=== PATIENT | female | born 1975 | race Caucasian/White ===

== ENCOUNTER → 2019-12-14 07:07 | Outpatient (BNVA) | payer OTHER, SELFPAY | PROVIDERS: PCP Hospitalist; Referring Provider Hospitalist; Visit Provider Surgery | DX: Z76.89 Persons encountering health services in other specified circumstances (principal) ==

== ENCOUNTER → 2020-01-18 07:31 | Outpatient (BNVA) | payer OTHER, SELFPAY | PROVIDERS: PCP Hospitalist; Visit Provider Surgery | DX: Z76.89 Persons encountering health services in other specified circumstances (principal) ==

== ENCOUNTER → 2020-03-21 08:11 | Outpatient (BNVA) | payer OTHER, SELFPAY | PROVIDERS: PCP Hospitalist; Visit Provider Surgery ==

== ENCOUNTER 2020-04-02 09:05 | Outpatient (REF) | payer OTHER, SELFPAY ==
--- NOTE | ~2020-04-02 | MM_ITS ---
EXAMINATION: MM SCREENING DIGITAL BREAST TOMOSYNTHESIS, BILATERAL CLINICAL INFORMATION: Screening. Asymptomatic. The lifetime risk of breast cancer based on the Tyrer-Cuzick Model is 10%. COMPARISON: Mammography: 03/28/2019, 01/22/2018 TECHNIQUE: Digital breast tomosynthesis is performed in both the craniocaudal and mediolateral oblique views along with computer-aided detection (CAD). Synthesized 2D images are generated from the tomosynthesis. FINDINGS: There are scattered areas of fibroglandular density (ACR BI-RADS breast composition Category b). There are no significant masses, abnormal calcifications, or other abnormalities. Parenchymal pattern is similar to prior exams. The axilla and skin contours are unremarkable. MM/MM tomosynthesis screening BI IMPRESSION: No mammographic evidence of malignancy. ASSESSMENT: BI-RADS 1: Negative RECOMMENDATION: Routine annual mammography screening. This patient's information was entered into a reminder system with a target due date for their next mammogram.
== END 2020-04-02 09:06 | disposition home or self-care (01) ==
LOC: HO.MAMMO 09:05
PROVIDERS: PCP Hospitalist; Visit Provider Hospitalist
DX: Z12.31 Encounter for screening mammogram for malignant neoplasm of breast (principal)
CPT/HCPCS: 77063; 77067

== ENCOUNTER 2020-04-21 08:47 | Outpatient (REF) | payer OTHER, SELFPAY ==
[2020-04-21 09:51] LABS: MANUAL DIFF FLAG NO
[2020-04-21 09:56] LABS: Basophils Percent Auto 0.3 % (0-2); Eosinophils Absolute Auto 0.6 X10*3/uL (0.0-0.4); Eosinophils Percent Auto 7.7 % (0-4); Hematocrit 39.1 % (37-47); Hemoglobin 13.5 g/dl (12.0-16.0); Imm Gran Abs Auto 0.01 X10*3/uL (0.00-0.03); Imm Gran Pct Auto 0.1 % (0.0-0.4); Lymphocytes Absolute Auto 2.3 X10*3/uL (1.2-4.9); Mean Corpuscular HGB Conc 34.5 g/dl (31.0-35.0); Mean Corpuscular Volume 89.9 fL (80-98); Mean Platelet Volume 10.1 fL (9.4-12.3); Monocytes Absolute Auto 0.6 X10*3/uL (0.1-1.2); Monocytes Percent Auto 8.3 % (2-11); Neutrophils Percent Auto 53.6 % (45-73); Platelet Count 327 X10*3/uL (160-400); Red Blood Count 4.35 X10*6/uL (4.20-5.50); Red Cell Distribution Width 12.3 % (11.0-16.0); White Blood Count 7.5 X10*3/uL (4.8-10.8)
[2020-04-21 10:28] LABS: Alanine Aminotransferase 20 U/L (0-31); Albumin Level 4.1 g/dL (3.5-5.0); Alkaline Phosphatase 86 U/L (39-117); Anion Gap 11 (12-20); Aspartate Amino Transferase 26 U/L (5-31); Bilirubin Total 0.6 mg/dL (0.0-1.0); Blood Urea Nitrogen 12 mg/dL (9-16); C Reactive Protein 0.31 mg/dL (< or = 0.50); Calcium 9.4 mg/dL (8.4-10.2); Carbon Dioxide 31 mmol/L (22-29); Chloride 102 mmol/L (96-108); Cholesterol 172 mg/dL; Estimated Glomerular Filt Rate > 60; Glucose Random 88 mg/dL (60-115); HDL Cholesterol 54 mg/dL; LDL Cholesterol Calculated 103 mg/dl; Potassium 4.5 mmol/L (3.3-5.1); Sodium 139 mmol/L (135-145); Total Protein 6.9 g/dL (6.5-8.0); Triglycerides 75 mg/dL
[2020-04-21 10:53] LABS: Ferritin 114 ng/mL (10-250); TSH reflex Free T4 1.35 uIU/mL (0.32-4.0); Vitamin D 25-OH Total 47.6 ng/mL (>30)
[2020-04-21 12:18] LABS: Folate > 20.0 ng/mL (> or = 4.0); Vitamin B12 1377 pg/mL (200-900)
[2020-04-21 13:12] LABS: Estimated Average Glucose 94 mg/dL; Hemoglobin A1c % 4.9 %
[2020-04-22 05:32] LABS: Insulin Level Total 4.3 uIU/mL
[2020-04-23 16:32] LABS: Zinc 76 mcg/dL (60-130)
[2020-04-25 12:11] LABS: Vitamin B1 15 nmol/L (8-30)
[2020-04-25 13:47] LABS: Calcium (PTHI) 9.3 mg/dL (8.6-10.2); PTHI 30 pg/mL (14-64)
[2020-04-26 17:06] LABS: Vitamin A 43 mcg/dL (38-98)
== END 2020-04-21 08:48 | disposition home or self-care (01) ==
LOC: HO.LAB 08:47
PROVIDERS: PCP Hospitalist; Visit Provider Surgery
DX: E66.3 Overweight (principal); K90.9 Intestinal malabsorption, unspecified
CPT/HCPCS: 36415; 80053; 80061; 82306; 82607; 82728; 82746; 83036; 83525; 83970; 84425; 84443; 84590; 84630; 85025; 86140

== ENCOUNTER 2020-08-09 15:25 | Outpatient (REF) | payer OTHER, SELFPAY ==
--- NOTE | ~2020-08-09 | US_ITS ---
EXAMINATION: US SOFT TISSUE OF THE NECK CLINICAL INFORMATION: Generalized enlarged lymph nodes. COMPARISON: None TECHNIQUE: Linear transducer grayscale and color Doppler examination of the right neck level IB.. Imaging of the contralateral left side of the neck comparison was also performed. FINDINGS: Palpable abnormality corresponds to the right submandibular gland. This is normal in size and measures 3.1 x 1.9 x 1.1 cm. No focal lesion in the right submandibular gland is seen. This does appear slightly more vascular than the comparison left submandibular gland. There is a small adjacent right cervical lymph node. This is normal in size and demonstrates normal ultrasound morphology and flow. This measures 1.7 x 0.5 x 1.4 cm. The left submandibular gland measures 3.1 x 0.7 x 2.7 cm and is normal-appearing. US/US soft tiss head and/or neck IMPRESSION: Palpable abnormality in the right neck corresponds to the right submandibular gland. This has slight increased vascularity compared to the left submandibular gland but otherwise appears unremarkable. There is a small adjacent normal-appearing right cervical lymph node.
== END 2020-08-09 15:26 | disposition home or self-care (01) ==
LOC: HO.HMGCX 15:25
PROVIDERS: PCP Hospitalist; Visit Provider Internal Medicine
DX: R59.1 Generalized enlarged lymph nodes (principal); F41.1 Generalized anxiety disorder
CPT/HCPCS: 76536

== ENCOUNTER 2021-06-09 08:29 | Outpatient (REF) | payer OTHER, SELFPAY ==
--- NOTE | ~2021-06-09 | MM_ITS ---
EXAMINATION: MM SCREENING DIGITAL BREAST TOMOSYNTHESIS, BILATERAL CLINICAL INFORMATION: Screening. Asymptomatic. The lifetime risk of breast cancer based on the Tyrer-Cuzick Model is 11%. COMPARISON: Mammography: 01/30/2021, 03/28/2019, 01/22/2018 TECHNIQUE: Digital breast tomosynthesis is performed in both the craniocaudal and mediolateral oblique views along with computer-aided detection (CAD). Synthesized 2D images are generated from the tomosynthesis. FINDINGS: There are scattered areas of fibroglandular density (ACR BI-RADS breast composition Category b). There are no significant masses, abnormal calcifications, or other abnormalities. The axilla and skin contours are unremarkable. No significant MM/MM tomosynthesis screening BI IMPRESSION: No mammographic evidence of malignancy. ASSESSMENT: BI-RADS 1: Negative RECOMMENDATION: Routine annual mammography screening. This patient's information was entered into a reminder system with a target due date for their next mammogram.
== END 2021-06-09 08:30 | disposition home or self-care (01) ==
LOC: HO.MAMMO 08:29
PROVIDERS: Visit Provider Hospitalist
DX: Z12.31 Encounter for screening mammogram for malignant neoplasm of breast (principal)
CPT/HCPCS: 77063; 77067

== ENCOUNTER 2021-10-20 11:18 | Outpatient (REF) | payer OTHER, SELFPAY ==
[2021-10-20 13:59] LABS: Hemoglobin 12.8 g/dl (12.0-16.0); Mean Corpuscular HGB Conc 36.6 g/dl (31.0-35.0); Mean Corpuscular Hemoglobin 33.2 pg (27.0-33.0); Mean Corpuscular Volume 90.7 fL (80.0-98.0); Mean Platelet Volume 10.7 fL (9.4-12.3); Platelet Count 368 X10*3/uL (160-400); Red Blood Count 3.86 X10*6/uL (4.20-5.50); Red Cell Distribution Width 13.2 % (11.0-16.0)
[2021-10-20 14:15] LABS: Anion Gap 17 (12-20); Blood Urea Nitrogen 10 mg/dL (9-16); Calcium 8.6 mg/dL (8.4-10.2); Carbon Dioxide 25 mmol/L (22-29); Chloride 104 mmol/L (96-108); Estimated Glomerular Filt Rate > 60; Glucose Random 85 mg/dL (60-115); Potassium 3.9 mmol/L (3.3-5.1); Sodium 142 mmol/L (135-145)
[2021-10-20 14:39] LABS: Thyroid Stimulating Hormone 0.52 uIU/mL (0.32-4.0)
[2021-10-20 14:43] LABS: Erythrocyte Sedimentation Rate 11 MM/HR (0-20)
== END 2021-10-20 11:19 | disposition home or self-care (01) ==
LOC: HO.HMGCLDS 11:18
PROVIDERS: PCP Hospitalist; Visit Provider Internal Medicine
DX: R11.0 Nausea (principal)
CPT/HCPCS: 36415; 80048; 84443; 85027; 85652

== ENCOUNTER 2022-06-15 08:05 | Outpatient (REF) | payer OTHER, SELFPAY ==
--- NOTE | ~2022-06-15 | MM_ITS ---
EXAMINATION: MM SCREENING DIGITAL BREAST TOMOSYNTHESIS, BILATERAL CLINICAL INFORMATION: Screening. Asymptomatic. The lifetime risk of breast cancer based on the Tyrer-Cuzick Model is 6%. COMPARISON: Mammography: 06/09/2021, 04/02/2020, 03/28/2019, 01/22/2018 TECHNIQUE: Digital breast tomosynthesis is performed in both the craniocaudal and mediolateral oblique views along with computer-aided detection (CAD). Synthesized 2D images are generated from the tomosynthesis. FINDINGS: There are scattered areas of fibroglandular density (ACR BI-RADS breast composition Category b). There are no significant masses, abnormal calcifications, or other abnormalities. Parenchymal pattern is similar to prior studies. There is no developing density or architectural abnormality. The axilla and skin contours are unremarkable. No significant changes. MM/MM tomosynthesis screening BI IMPRESSION: No mammographic evidence of malignancy. ASSESSMENT: BI-RADS 1: Negative RECOMMENDATION: Routine annual mammography screening. This patient's information was entered into a reminder system with a target due date for their next mammogram.
== END 2022-06-15 08:06 | disposition home or self-care (01) ==
LOC: HO.MAMMO 08:05
PROVIDERS: PCP Hospitalist; Visit Provider Hospitalist
DX: Z12.31 Encounter for screening mammogram for malignant neoplasm of breast (principal)
CPT/HCPCS: 77063; 77067

== ENCOUNTER 2022-10-26 11:35 | Outpatient (AMB) | payer OTHER, SELFPAY ==
[2022-10-26 11:49] VITALS: BP 100/60; PULSE 78; RESP 16; TEMP 37.1; O2SAT 97; BMI 31.8
--- NOTE | 2022-10-26 11:49 | A.OFFPC_ITS ---
Vital Signs 10/26/22 11:49 Height 5 ft 5 in Weight 191 lb 4 oz BMI 31.8 BP 100/60 Blood Pressure Location Lt brachial Position Sitting Respiration 16 Pulse 78 Pulse Source Pulse Oximeter Temp 98.7 F Temp Source Oral Pulse Oximetry (%) 97 Oxygen Delivery Method Room Air Intake Visit Reasons: Discuss Anxiety Medication Intake Note: Patient reports she would like to discuss anxiety medication as she feels it does not work. 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 Accompanied by: Self / Same As Patient Allergies latex [Latex] Allergy (Severe, Verified 10/26/22 12:05) SWELLING,ITCHING codeine [CODEINE] Allergy (Intermediate, Verified 10/26/22 12:05) N/V levofloxacin [From Levaquin] Allergy (Mild, Verified 10/26/22 12:05) N/V Medication List - Last Reconciled 10/26/22 by Ayanna Johns CNP cetirizine 10 mg PO DAILY clonidine HCl 0.1 mg PO TID PRN fluticasone propionate 50 mcg/actuation (Flonase Allergy Relief) 1 spray intranasal Q12H 30 days multivitamin 1 cap PO DAILY sennosides (Senna Laxative) 17.2 mg (2 x 8.6 mg) PO BEDTIME PRN valacyclovir 2,000 mg (2 x 1 gram) PO BID valacyclovir 500 mg PO DAILY Tobacco use date assessed: 10/26/22 Dental Screening Dental Screen Date: 10/26/22 Did you have a dental visit in the last 12 months?: Yes Did you have a dental problem in the last 6 months where you did not have access to dental care?: No Was dental information given to patient?: Patient has dentist HPI HPI Comments History of Present Illness Details 47-year-old female presents for anxiety follow-up She notes she is on Clonidine for anxiety which she thinks is no longer effective. She notes that Clonidine was increased by her PCP 6 months ago; she experienced fatigue with this dose. Her fatigue completed subsided after she stopped taking the medication 2 months. 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 She admits to not exercising. She notes she is followed by a therapist weekly. She was last evaluated by her PCP 11 months ago. Her last blood work was a year ago. [facility] Medical History Generalized anxiety disorder Intestinal malabsorption Overweight Surgical History S/P excision of ganglion cyst S/P tonsillectomy S/P RIA (total abdominal hysterectomy) Hx of breast biopsy Hx laparoscopic cholecystectomy History of sleeve gastrectomy Family History Father No problems noted. Mother Stroke Son No problems noted. Daughter No problems noted. Social History Housing: Apartment Alcohol intake: current Patient Tobacco Use Status: Never used Tobacco service: No Current occupational status: employed Cognitive needs: No Hearing needs: No Vision needs: No Questionnaire PHQ-9 Over the last 2 weeks, how often have you been bothered by any of the following problems? 1. Little interest or pleasure in doing things: not at all 2. Feeling down, depressed, or hopeless: not at all 3. Trouble falling or staying asleep, or sleeping too much: not at all 4. Feeling tired or having little energy: not at all 5. Poor appetite or overeating: more than half the days 6. Feeling bad about yourself - or that you are a failure or have let yourself or your family down: not at all 7. Trouble concentrating on things, such as reading the newspaper or watching television: not at all 8. Moving or speaking so slowly that other people could have noticed. Or the opposite - being so fidgety or restless that you have been moving around a lot more than usual: not at all 9. Thoughts that you would be better off or of hurting yourself in some way: not at all Total score: 2 Depression Screening Interpretation: Negative 23988 - PHQ-9 Billing: Yes Source: Developed by Drs. Breezy Garces, Yelitza Chaudhry, Jonathan Matthew and colleagues, with an educational ingris from [employer]. Thrive Questionnaire Date Thrive assessed: 09/05/21 OZ-7 AMB Questionnaire OZ-7 Date OZ - 7 assessed: 10/26/22 Feeling nervous, anxious, or on edge: 2 = More than half the days Not being able to stop or control worryin = More than half the days Worrying too much about different things: 1 = Several days Trouble relaxin = Several days Being so restless that it is hard to sit still: 0 = Not at all Becoming easily annoyed or irritable: 0 = Not at all Feeling afraid as if something awful might happen: 1 = Several days Total OZ-7 score (0-4 normal; 5-9 mild; 10-14 moderate; 15-21 severe): 7 Source: Developed by Drs. Breezy Garces, Yelitza Chaudhry, Jonathan Matthew and colleagues, with an educational ingris from [employer]. OZ-7 Assessment Billing OZ-7 Assessment Tool: OZ-7 Assessment 26231 Review of Systems Const Details: Const Denies chills, Denies fatigue, Denies fever(s), Denies headache(s) and Denies weakness ENT Denies dizziness and Denies headache(s) Card Denies chest pain, Denies lightheadedness, Denies dyspnea and Denies other (Palpitations) Resp Denies cough, Denies dyspnea, Denies wheezing and Denies other ( shortness of breath) GI Denies abdominal pain, Denies melena, Denies hematochezia, Denies change in bowel habits, Denies dyspepsia and Denies nausea Denies hematuria and Denies dysuria Musc Denies abnormal gait, Denies myalgias, Denies arthralgias, Denies numbness and Denies tingling Skin/Breast Denies rash, Denies unusual bruising and Denies wounds Neuro Denies abnormal gait, Denies dizziness, Denies headache(s), Denies memory loss, Denies numbness, Denies Sensory deficit (Neuro), Denies tingling and Denies weakness Psych Reports anxiety, Denies depression, Denies memory loss Endo Denies cold intolerance, Denies fatigue, Denies heat intolerance, Denies polydipsia and Denies polyuria Aller/Immun Denies wheezing Physical exam (Primary Care) Vital Signs: Last Vital Signs Temp 98.7 F 10/26/22 11:49 Pulse 78 10/26/22 11:49 Resp 16 10/26/22 11:49 BP 100/60 10/26/22 11:49 Pulse Ox 97 10/26/22 11:49 Oxygen Delivery Method Room Air 10/26/22 11:49 BMI result Body Mass Index 31.8 Tobacco/Smoking Status: Tobacco use Status Tobacco use date assessed 10/26/22 10/26/22 11:55 Patient Tobacco Use Status Never used Tobacco 10/26/22 11:55 PHQ-9: PHQ-9 Score PHQ-9: Total score 2 10/26/22 11:57 Depression Screening Interpretation: Negative Thrive Assessment: Date of Thrive Assessment Date Thrive assessed 09/05/21 10/26/22 11:55 Const Other: General: no acute distress and well developed Nutritional Appearance: well nourished Orientation/consciousness: patient oriented x3 HENMT Head: Yes normocephalic and Yes atraumatic Eyes General: appearance normal, both eyes and all related structures Pupils: Equal, round and reactive pupils present EOM: EOMs intact bilaterally Resp Effort & Inspection: normal respiratory effort Auscultation: clear to auscultation bilaterally Cardio Rate: regular rate Rhythm: regular rhythm Heart sounds: S1 normal heart sound present, S2 normal heart sound present, no gallops, no murmurs and no rubs GI Palpation (GI): No Abdominal aortic bruit present, Soft to palpation, nontender, No hepatosplenomegaly present and No Rebound tenderness present Auscultation: normal bowel sounds General: Yes no CVA tenderness Back/Spine/Pelvis Back: no CVA tenderness Cervical Spine: cervical ROM normal and No Cervical spine tenderness Thoracic/Lumbar Spine: thoraco-lumbar ROM normal, No pain with thoraco-lumbar ROM, No thoracic spinal tenderness and No lumbar spinal tenderness Extrem General: Yes normal to inspection, No edema and No calf tenderness Skin General: warm and dry. Normal skin color. Normal skin turgor Lesions: no lesions Rashes: no rashes Trauma: no lacerations or abrasions Wounds: no wounds Nails: normal Neuro General: patient oriented x3, gait normal and no focal neuro deficit Cranial nerves: Yes Equal, round and reactive pupils present Cognition (Neuro): normal cognition Gait exam (Neuro): Normal gait present Sensory Exam: No Sensory deficit (Neuro) Psych Appearance: grossly normal Affect: normal affect Attitude: cooperative Thought process: Normal thought process present Assessment and Plan Assessment & Plan (1) Generalized anxiety disorder: Code(s): F41.1 - Generalized anxiety disorder Plan: OZ-7 score revealed mild anxiety. PHQ-9 score is normal Clonidine discontinued Buspirone ordered. Take as prescribed Routine exercise encouraged Continue with weekly therapy as planned Follow-up in 1 month or return sooner with worsening or new symptoms Verbalized understanding and agreed with treatment plan. Medications: New buspirone 7.5 mg PO BID 30 days 60 tabs 2RF Discontinued clonidine HCl Discontinued Reason: Doctor's Order 0.1 mg PO TID PRN 90 tabs 2RF for insomnia Coding Level of Care Code Est Pt Level 3 (01538) Diagnoses Generalized anxiety disorder F41.1 Additional Codes OZ-7 Assessment Billing - OZ-7 Assessment Tool: OZ-7 Assessment 47465 ( [id number])
== END 2022-10-26 12:22 | disposition home or self-care (01) ==
PROVIDERS: PCP Hospitalist; Visit Provider Nurse Practitioner Family
DX: F41.1 Generalized anxiety disorder (principal)
CPT/HCPCS: 99213

== ENCOUNTER 2022-11-23 09:03 | Outpatient (AMB) | payer OTHER, SELFPAY ==
[2022-11-23 09:09] VITALS: BP 110/62; PULSE 65; RESP 16; TEMP 36.7; O2SAT 100; BMI 31.9
--- NOTE | 2022-11-23 09:09 | MHC.PC.OV ---
Vital Signs 11/23/22 09:09 Height 5 ft 5 in Weight 192 lb BMI 31.9 BP 110/62 Blood Pressure Location Lt brachial Position Sitting Respiration 16 Pulse 65 Pulse Source Pulse Oximeter Temp 98.1 F Pulse Oximetry (%) 100 Oxygen Delivery Method Room Air Intake Visit Reasons: Discuss Anxiety Medication Intake Note: Patient is here to discuss her anxiety medication, Buspar. Allergies latex [Latex] Allergy (Severe, Verified 11/23/22 09:30) SWELLING,ITCHING codeine [CODEINE] Allergy (Intermediate, Verified 11/23/22 09:30) N/V levofloxacin [From Levaquin] Allergy (Mild, Verified 11/23/22 09:30) N/V Medication List - Last Reconciled 11/23/22 by Ayanna Johns CNP buspirone 7.5 mg PO BID 30 days cetirizine 10 mg PO DAILY fluticasone propionate 50 mcg/actuation (Flonase Allergy Relief) 1 spray intranasal Q12H 30 days multivitamin 1 cap PO DAILY sennosides (Senna Laxative) 17.2 mg (2 x 8.6 mg) PO BEDTIME PRN valacyclovir 2,000 mg (2 x 1 gram) PO BID valacyclovir 500 mg PO DAILY Tobacco use date assessed: 11/23/22 Dental Screening Dental Screen Date: 11/23/22 Did you have a dental visit in the last 12 months?: Yes Did you have a dental problem in the last 6 months where you did not have access to dental care?: No Was dental information given to patient?: Patient has dentist HPI HPI Comments History of Present Illness Details 47-year-old female presents for anxiety follow-up. Her last office visit was on 10/26/2022. She was on clonidine which she noted was no longer effective for her anxiety symptoms. Clonidine was discontinued. She was prescribed buspirone 7.5 mg twice daily and advised to follow-up in a month. She notes that she has been taking buspirone as prescribed with improved anxiety symptoms. 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 She admits to not exercising but notes she intends to start. She notes that she is followed by a therapist weekly. She denies acute symptoms at this time. [facility] Medical History Generalized anxiety disorder Intestinal malabsorption Overweight Surgical History S/P excision of ganglion cyst S/P tonsillectomy S/P RIA (total abdominal hysterectomy) Hx of breast biopsy Hx laparoscopic cholecystectomy History of sleeve gastrectomy Family History Father No problems noted. Mother Stroke Son No problems noted. Daughter No problems noted. 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 Cognitive needs: No Hearing needs: No Vision needs: No Questionnaire PHQ-9 Over the last 2 weeks, how often have you been bothered by any of the following problems? 1. Little interest or pleasure in doing things: not at all 2. Feeling down, depressed, or hopeless: not at all 3. Trouble falling or staying asleep, or sleeping too much: not at all 4. Feeling tired or having little energy: not at all 5. Poor appetite or overeating: not at all 6. Feeling bad about yourself - or that you are a failure or have let yourself or your family down: not at all 7. Trouble concentrating on things, such as reading the newspaper or watching television: not at all 8. Moving or speaking so slowly that other people could have noticed. Or the opposite - being so fidgety or restless that you have been moving around a lot more than usual: not at all 9. Thoughts that you would be better off or of hurting yourself in some way: not at all Total score: 0 Depression Screening Interpretation: Negative Depression Screening Done: Yes Source: Developed by Drs. Breezy Garces, Yelitza Chaudhry, Jonathan Matthew and colleagues, with an educational ingris from [employer]. Thrive Questionnaire Date Thrive assessed: 09/05/21 OZ-7 AMB Questionnaire OZ-7 Date OZ - 7 assessed: 09/08/23 Feeling nervous, anxious, or on edge: 2 = More than half the days Not being able to stop or control worryin = Several days Worrying too much about different things: 1 = Several days Trouble relaxin = Not at all Being so restless that it is hard to sit still: 0 = Not at all Becoming easily annoyed or irritable: 0 = Not at all Feeling afraid as if something awful might happen: 0 = Not at all Total OZ-7 score (0-4 normal; 5-9 mild; 10-14 moderate; 15-21 severe): 4 Source: Developed by Drs. Breezy Garces, Yelitza Chaudhry, Jonathan Matthew and colleagues, with an educational ingris from [employer]. Review of Systems Const Details: Const Denies chills, Denies fatigue, Denies fever(s), Denies headache(s) and Denies weakness ENT Denies dizziness and Denies headache(s) Card Denies chest pain, Denies lightheadedness, Denies dyspnea and Denies other (Palpitations) Resp Denies cough, Denies dyspnea, Denies wheezing and Denies other ( shortness of breath) GI Denies abdominal pain, Denies melena, Denies hematochezia, Denies change in bowel habits, Denies dyspepsia and Denies nausea Denies hematuria and Denies dysuria Musc Denies abnormal gait, Denies myalgias, Denies arthralgias, Denies numbness and Denies tingling Skin/Breast Denies rash, Denies unusual bruising and Denies wounds Neuro Denies abnormal gait, Denies dizziness, Denies headache(s), Denies memory loss, Denies numbness, Denies Sensory deficit (Neuro), Denies tingling and Denies weakness Psych Denies anxiety, Denies depression, Denies memory loss Endo Denies cold intolerance, Denies fatigue, Denies heat intolerance, Denies polydipsia and Denies polyuria Aller/Immun Denies wheezing Physical exam (Primary Care) BMI result Body Mass Index 31.9 Tobacco/Smoking Status: Tobacco use Status Tobacco use date assessed 10/26/22 10/26/22 11:55 Patient Tobacco Use Status Never used Tobacco 10/26/22 11:55 Depression Screening Interpretation: Negative Thrive Assessment: Date of Thrive Assessment Date Thrive assessed 09/05/21 10/26/22 11:55 Const Other: General: no acute distress and well developed Nutritional Appearance: well nourished Orientation/consciousness: patient oriented x3 [facility]: Yes normocephalic and Yes atraumatic Eyes General: appearance normal, both eyes and all related structures Pupils: Equal, round and reactive pupils present EOM: EOMs intact bilaterally Resp Effort & Inspection: normal respiratory effort Auscultation: clear to auscultation bilaterally Cardio Rate: regular rate Rhythm: regular rhythm Heart sounds: S1 normal heart sound present, S2 normal heart sound present, no gallops, no murmurs and no rubs GI Palpation (GI): No Abdominal aortic bruit present, Soft to palpation, nontender, No hepatosplenomegaly present and No Rebound tenderness present Auscultation: normal bowel sounds General: Yes no CVA tenderness Back/Spine/Pelvis Back: no CVA tenderness Cervical Spine: cervical ROM normal and No Cervical spine tenderness Thoracic/Lumbar Spine: thoraco-lumbar ROM normal, No pain with thoraco-lumbar ROM, No thoracic spinal tenderness and No lumbar spinal tenderness Extrem General: Yes normal to inspection, No edema and No calf tenderness Skin General: warm and dry. Normal skin color. Normal skin turgor Neuro General: patient oriented x3, gait normal and no focal neuro deficit Cranial nerves: Yes Equal, round and reactive pupils present Cognition (Neuro): normal cognition Gait exam (Neuro): Normal gait present Sensory Exam: No Sensory deficit (Neuro) Psych Appearance: grossly normal Affect: normal affect Attitude: cooperative Thought process: Normal thought process present Assessment and Plan Assessment & Plan (1) Generalized anxiety disorder: Code(s): F41.1 - Generalized anxiety disorder Plan: PHQ-9 and OZ-7 scores are negative Reports improved anxiety and depression symptoms Continue to take buspirone as prescribed Routine exercise encouraged Follow-up later this month for complete physical exam She has not had routine blood work done in a while. Fasting routine labs ordered; advised to get blood work done before her next visit Return with worsening or new symptoms Verbalized understanding and agreed with treatment plan. (2) Laboratory tests ordered as part of a complete physical exam (CPE): Code(s): Z00.00 - Encounter for general adult medical examination without abnormal findings Plan: Fasting labs ordered as part of a complete physical exam. Advised to fast for at least 10 hours before getting labs drawn. May drink water Verbalized understanding and agreed with treatment plan. Orders: Orders Complete Blood Count Auto Diff Today Z00.00 - Encounter for general adult medical examination without abnormal findings Comprehensive Rhine. Panel Fast Today Z00.00 - Encounter for general adult medical examination without abnormal findings TSH reflex Free T4 Today Z00.00 - Encounter for general adult medical examination without abnormal findings UA CC w/rflx Micro + Cult Today Z00.00 - Encounter for general adult medical examination without abnormal findings Lipid Panel Today Z00.00 - Encounter for general adult medical examination without abnormal findings Coding Level of Care Code Est Pt Level 2 (08261) Diagnoses Generalized anxiety disorder F41.1 Laboratory tests ordered as part of a complete physical exam (CPE) Z00.00
== END 2022-11-23 09:35 | disposition home or self-care (01) ==
PROVIDERS: PCP Nurse Practitioner Family; Visit Provider Nurse Practitioner Family
DX: F41.1 Generalized anxiety disorder (principal); Z00.00 Encounter for general adult medical examination without abnormal findings
CPT/HCPCS: 99213

== ENCOUNTER 2023-01-07 15:27 | Outpatient (AMB) | payer OTHER, SELFPAY ==
--- NOTE | 2023-01-07 15:30 | MHC.PC.OV ---
Vital Signs 01/07/23 15:31 Height 5 ft 5 in Weight 183 lb BMI 30.4 BP 122/70 Blood Pressure Location Lt brachial Position Sitting Respiration 14 Pulse 75 Pulse Source Pulse Oximeter Pulse Oximetry (%) 98 Oxygen Delivery Method Room Air Intake Visit Reasons: 01/16/23Bunionectomy Left foot/PE per MT 11/23 Intake Note: Patient reports she is having surgery on her left foot on 01.16.23 at the [facility]. Patient reports last surgery she had she became very sick afterward from the anesthesia. Patient reports she will be guven an anti-nausea with the anesthesia. Custodial Services Manager Required: No Accompanied by: Self / Same As Patient Allergies latex [Latex] Allergy (Severe, Verified 01/07/23 15:59) SWELLING,ITCHING codeine [CODEINE] Allergy (Intermediate, Verified 01/07/23 15:59) N/V levofloxacin [From Levaquin] Allergy (Mild, Verified 01/07/23 15:59) N/V Medication List - Last Reconciled 01/07/23 by Ayanna Johns CNP acyclovir 400 mg PO TID 10 days buspirone 7.5 mg PO BID 30 days cetirizine 10 mg PO DAILY fluticasone propionate 50 mcg/actuation (Flonase Allergy Relief) 1 spray intranasal Q12H 30 days multivitamin 1 cap PO DAILY sennosides (Senna Laxative) 17.2 mg (2 x 8.6 mg) PO BEDTIME PRN Tobacco use date assessed: 11/23/22 HPI HPI Comments History of Present Illness Details 47-year-old female presents for an extended physical exam She has past medical history significant for generalized anxiety disorder She admits to taking buspirone as prescribed with no adverse reaction She did not get her routine blood work done She reports improve anxiety symptoms on buspirone. However, she has not been getting adequate sleep since she stop taking clonidine 0.2 mg at bedtime; she has been sleeping an average of 4 hours She notes she is scheduled for bunionectomy of the left foot on 01/16/2023 Her last mammogram was in May 2022: Normal She notes she had total hysterectomy few years ago [facility] Medical History (Updated 11/23/22 @ 09:26 by Ayanna Johns CNP) Generalized anxiety disorder Intestinal malabsorption Overweight Surgical History S/P excision of ganglion cyst S/P tonsillectomy S/P RIA (total abdominal hysterectomy) Hx of breast biopsy Hx laparoscopic cholecystectomy History of sleeve gastrectomy Family History Father No problems noted. Mother Stroke Son No problems noted. Daughter No problems noted. 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 Cognitive needs: No Hearing needs: No Vision needs: No Questionnaire Thrive Questionnaire Date Thrive assessed: 09/05/21 OZ-7 AMB Questionnaire OZ-7 Date OZ - 7 assessed: 10/26/22 Source: Developed by Drs. Breezy Garces, Yelitza Chaudhry, Jonathan Matthew and colleagues, with an educational ingris from [employer]. Review of Systems Const Details: Denies chills, Denies fatigue, Denies fever(s), Denies headache(s) and Denies weakness HEENT Denies change in vision, Denies dizziness, Denies headache(s), Denies hearing loss, Denies nasal congestion, Denies sinus pain, Denies sinus pressure and Denies sore throat Card Denies chest pain, Denies lightheadedness, Denies dyspnea and Denies other (palpitations) Resp Denies cough, Denies dyspnea and Denies wheezing GI Denies abdominal pain, Denies melena, Denies hematochezia, Denies change in bowel habits, Denies dyspepsia and Denies nausea Denies hematuria and Denies dysuria Musc Denies abnormal gait, Denies myalgias, Denies arthralgias, Denies numbness and Denies tingling Skin/Breast Denies rash, Denies unusual bruising and Denies wounds Neuro Denies abnormal gait, Denies dizziness, Denies headache(s), Denies memory loss, Denies numbness, Denies Sensory deficit (Neuro), Denies tingling and Denies weakness Psych Denies anxiety, Denies depression and Denies memory loss Endo Denies cold intolerance, Denies fatigue, Denies heat intolerance, Denies polydipsia and Denies polyuria Eyal/Lymph Denies easy bleeding and Denies easy bruising Aller/Immun Denies wheezing Physical exam (Primary Care) Vital Signs: Last Vital Signs Pulse 75 01/07/23 15:31 Resp 14 01/07/23 15:31 BP 122/70 01/07/23 15:31 Pulse Ox 98 01/07/23 15:31 Oxygen Delivery Method Room Air 01/07/23 15:31 BMI result Body Mass Index 30.4 Tobacco/Smoking Status: Tobacco use Status Tobacco use date assessed 11/23/22 01/07/23 15:38 Patient Tobacco Use Status Never used Tobacco 01/07/23 15:38 e-Cigarette/Vaping Use Never Used 01/07/23 15:38 Thrive Assessment: Date of Thrive Assessment Date Thrive assessed 09/05/21 01/07/23 15:38 Const Other: General: no acute distress, well developed, alert and awake Nutritional Appearance: well nourished Orientation/consciousness: patient oriented x3 HENMT Head: Yes normocephalic and Yes atraumatic Ears: hearing grossly normal bilaterally and TM's normal bilaterally General nose exam: Normal external nose present and Normal nares present Mouth: Normal oral and palatal mucosa present and moist mucous membranes Teeth and gingiva: dentition normal Throat: Yes oropharynx normal Eyes Pupils: Equal, round and reactive pupils present and Pupil accommodation reflex normal EOM: EOMs intact bilaterally Neck Neck: Yes normal visual inspection, Yes no lymphadenopathy and Yes trachea midline Thyroid: Thyroid normal Carotids: no bruits Lymphatic: no lymphadenopathy noted Chest Chest palpation & inspection: normal inspection of the chest Resp Effort & Inspection: normal respiratory effort Auscultation: clear to auscultation bilaterally Cardio Rate: regular rate Rhythm: regular rhythm Heart sounds: S1 normal heart sound present, S2 normal heart sound present, no gallops, no murmurs and no rubs Bruits: no abdominal aortic bruits and no carotid bruits GI Palpation (GI): No Abdominal aortic bruit present, Soft to palpation, nontender, No hepatosplenomegaly present and No Rebound tenderness present Auscultation: normal bowel sounds General: Yes no CVA tenderness Back/Spine/Pelvis Back: no CVA tenderness Cervical Spine: cervical ROM normal and No Cervical spine tenderness Thoracic/Lumbar Spine: thoraco-lumbar ROM normal, No pain with thoraco-lumbar ROM, No thoracic spinal tenderness and No lumbar spinal tenderness Skin General: warm and dry. Normal skin color. Normal skin turgor Lesions: no lesions Rashes: no rashes Trauma: no lacerations or abrasions Wounds: no wounds Nails: normal Neuro General: patient oriented x3, gait normal and CN's II-XI intact bilaterally Cranial nerves: Yes Equal, round and reactive pupils present Cognition (Neuro): normal cognition Gait exam (Neuro): Normal gait present Motor exam (neuro): 5/5 motor strength present throughout Sensory Exam: No Sensory deficit (Neuro) Deep tendon reflexes (DTR's): Right patellar reflex intensity grade: 2+ and Left patellar reflex intensity grade: 2+ Extrem General: Yes normal to inspection, No edema and No calf tenderness Psych Appearance: grossly normal Affect: normal affect Attitude: cooperative Thought process: Normal thought process present Assessment and Plan Assessment & Plan (1) Normal physical examination, routine: Code(s): Z00.00 - Encounter for general adult medical examination without abnormal findings Plan: No significant physical restrictions or limitations noted Advised to get routine fasting blood work done Follow-up in 1-2 months for anxiety Return sooner with symptoms or concerns Verbalized understanding and agreed with treatment plan. (2) Generalized anxiety disorder: Code(s): F41.1 - Generalized anxiety disorder Plan: Reports improved exam symptoms on buspirone. However, she has not been getting adequate sleep since she stop taking clonidine at bedtime Clonidine ordered. Take as prescribed Continue to take buspirone as prescribed Routine exercise encouraged Follow-up in 1-2 months or return sooner with worsening or new symptoms Verbalized understanding and agreed with treatment plan (3) Pre-operative clearance: Code(s): Z01.818 - Encounter for other preprocedural examination Plan: She has bunionectomy of the left foot schedule for 01/16/2023 Physical exam is normal She will be cleared if CBC and CMP results are unrevealing Advised to get blood work done. Will call and notify patient of results and preoperative clearance status Verbalized understanding and agreed with the plan. Medications: New clonidine HCl 0.2 mg PO BEDTIME 30 tabs 3RF 30 days Coding Level of Care Code Est Pt Prev Care 40-64y(95795) Diagnoses Normal physical examination, routine Z00.00 Generalized anxiety disorder F41.1 Pre-operative clearance Z01.818
[2023-01-07 15:31] VITALS: BP 122/70; PULSE 75; RESP 14; O2SAT 98; BMI 30.4
== END 2023-01-07 16:21 | disposition home or self-care (01) ==
PROVIDERS: PCP Nurse Practitioner Family; Visit Provider Nurse Practitioner Family
DX: Z00.00 Encounter for general adult medical examination without abnormal findings (principal); F41.1 Generalized anxiety disorder
CPT/HCPCS: 99396

== ENCOUNTER 2023-01-08 10:07 | Outpatient (REF) | payer OTHER, SELFPAY ==
[2023-01-08 11:13] LABS: MANUAL DIFF FLAG NO
[2023-01-08 11:17] LABS: Basophils Percent Auto 0.3 % (0-2); Eosinophils Absolute Auto 0.1 X10*3/uL (0.0-0.4); Eosinophils Percent Auto 1.2 % (0-4); Hematocrit 37.5 % (37.0-47.0); Hemoglobin 12.8 g/dl (12.0-16.0); Imm Gran Abs Auto 0.06 X10*3/uL (0.00-0.03); Imm Gran Pct Auto 0.6 % (0.0-0.4); Lymphocytes Percent Auto 30.5 % (20-40); Mean Corpuscular HGB Conc 34.1 g/dl (31.0-35.0); Mean Corpuscular Hemoglobin 29.8 pg (27.0-33.0); Mean Corpuscular Volume 87.4 fL (80.0-98.0); Mean Platelet Volume 9.6 fL (9.4-12.3); Monocytes Absolute Auto 0.8 X10*3/uL (0.1-1.2); Neutrophils Absolute Auto 5.7 x10*3/uL (2.0-8.3); Neutrophils Percent Auto 59.4 % (45-73); Platelet Count 414 X10*3/uL (160-400); Red Blood Count 4.29 X10*6/uL (4.20-5.50); Red Cell Distribution Width 12.6 % (11.0-16.0); White Blood Count 9.7 X10*3/uL (4.8-10.8)
[2023-01-08 11:31] LABS: Appearance Urine Clear; Color Urine Yellow; Glucose Urine UA Negative (Negative); Leukocyte Esterase Urine Negative (Negative); Nitrite Urine Negative (Negative); Specific Gravity - Urine 1.015 (1.005-1.025); Urine Blood Negative (Negative); Urine Ketones Negative (Negative); Urine Protein Negative (Neg-Trace)
[2023-01-08 11:45] LABS: Alanine Aminotransferase 16 U/L (0-31); Albumin Level 3.8 g/dL (3.5-5.0); Alkaline Phosphatase 58 U/L (39-117); Anion Gap 7 (12-20); Aspartate Amino Transferase 17 U/L (5-31); Bilirubin Total 0.4 mg/dL (0.0-1.0); Blood Urea Nitrogen 9 mg/dL (9-16); Calcium 8.8 mg/dL (8.4-10.2); Carbon Dioxide 34 mmol/L (22-29); Chloride 103 mmol/L (96-108); Cholesterol 141 mg/dL (<200); Estimated Glomerular Filt Rate > 60; Glucose Fasting 88 mg/dL (60-99); HDL Cholesterol 38 mg/dL (>40); LDL Cholesterol Calculated 67 mg/dL (<100); Potassium 3.6 mmol/L (3.3-5.1); Sodium 140 mmol/L (135-145); Total Protein 6.9 g/dL (6.5-8.0); Triglycerides 182 mg/dL (<150)
[2023-01-08 11:48] LABS: TSH reflex Free T4 0.74 uIU/mL (0.32-4.0)
== END 2023-01-08 10:08 | disposition home or self-care (01) ==
LOC: HO.WFDLDS 10:07
PROVIDERS: Visit Provider Nurse Practitioner Family
DX: Z00.00 Encounter for general adult medical examination without abnormal findings (principal)
CPT/HCPCS: 36415; 80053; 80061; 81003; 84443; 85025

== ENCOUNTER → 2023-04-09 10:27 | Outpatient (AMB) | payer OTHER, SELFPAY ==
--- NOTE | 2023-04-09 10:34 | A.OFFPC_ITS ---
Vital Signs 04/09/23 10:38 Height 5 ft 5 in Weight 194 lb 4 oz BMI 32.3 BP 120/74 Blood Pressure Location Rt brachial Position Sitting Respiration 13 Pulse 80 Pulse Source Pulse Oximeter Temp 97.8 F Temp Source Temporal Artery Scan Pulse Oximetry (%) 99 Oxygen Delivery Method Room Air Intake Visit Reasons: BILL from [facility] Lift Driver Required: No Accompanied by: Self / Same As Patient Allergies latex [Latex] Allergy (Severe, Verified 04/09/23 10:57) SWELLING,ITCHING codeine [CODEINE] Allergy (Intermediate, Verified 04/09/23 10:57) N/V levofloxacin [From Levaquin] Allergy (Mild, Verified 04/09/23 10:57) N/V Medication List - Last Reconciled 04/09/23 by BENTON Petersen- acyclovir 400 mg PO TID 10 days cetirizine 10 mg PO DAILY clonidine HCl 0.2 mg PO BEDTIME 30 days fluticasone propionate 50 mcg/actuation (Flonase Allergy Relief) 1 spray intranasal Q12H 30 days multivitamin 1 cap PO DAILY sennosides (Senna Laxative) 17.2 mg (2 x 8.6 mg) PO BEDTIME PRN Tobacco use date assessed: 04/09/23 Dental Screening Dental Screen Date: 04/09/23 Did you have a dental visit in the last 12 months?: Yes Did you have a dental problem in the last 6 months where you did not have access to dental care?: No Was dental information given to patient?: Patient has dentist HPI HPI Comments History of Present Illness Details 47-year-old female with generalized anxi ety disorder, ocular migraine with aura, herpes, seasonal allergies 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 Reports imaging done she was told this was a benign lymph node. Also reports a left breast lump of which she had a mammogram and biopsy done that was determined to be negative per her reports. She will have a repeat bilateral mammogram in May of 2023. I do not have these records to date. Pap 03/2023 WNL Vaccines: declines flu, Tdap DEXA: will ask BIG DATA ENGINEER Here today to est care OZ - Clonidine made her tired; taking at HS and this has helped a side effect. Continues to be effective for her anxiety. Was placed on Buspar. Missed doses in the AM. [place] fine w/o it. So stopped taking it. Would like to discontinue this. s/p gastric sleeve surgery - gaining wt; poor diet. Wonders what else she can do. Admits she was on Adipex in the past as well as phentermine. Wonders if she can restart this. Also shows interest in working with a shipyard supervisor. s/p bunionectomy - out of work for 3 months. under going PT. Will return to work Saturday. Herpes suppressed on acyclovir [facility] Medical History (Updated 04/09/23 @ 12:58 by Maggie Fairchild, [facility]-) Constipation Generalized anxiety disorder Intestinal malabsorption Overweight Surgical History S/P excision of ganglion cyst S/P tonsillectomy S/P RIA (total abdominal hysterectomy) Hx of breast biopsy Hx laparoscopic cholecystectomy History of sleeve gastrectomy Family History Father No problems noted. Mother Stroke Son No problems noted. Daughter No problems noted. 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 Cognitive needs: No Hearing needs: No Vision needs: No Questionnaire PHQ-9 Over the last 2 weeks, how often have you been bothered by any of the following problems? 1. Little interest or pleasure in doing things: not at all 2. Feeling down, depressed, or hopeless: not at all 3. Trouble falling or staying asleep, or sleeping too much: more than half the days (falling asleep) 4. Feeling tired or having little energy: not at all 5. Poor appetite or overeating: more than half the days 6. Feeling bad about yourself - or that you are a failure or have let yourself or your family down: not at all 7. Trouble concentrating on things, such as reading the newspaper or watching television: not at all 8. Moving or speaking so slowly that other people could have noticed. Or the opposite - being so fidgety or restless that you have been moving around a lot more than usual: not at all 9. Thoughts that you would be better off or of hurting yourself in some way: not at all Total score: 4 Depression Screening Interpretation: Negative Depression Screening Done: Yes 56181 - PHQ-9 Billing: Yes Source: Developed by Drs. Breezy Garces, Yelitza Chaudhry, Jonathan Matthew and colleagues, with an educational ingris from [employer]. Thrive Questionnaire Date Thrive assessed: 04/09/23 I am a: Patient What is your living situation today?: I have a steady place to live Within the past 12 months, did the food you bought not last and you didn't have the money to get more?: Never true Within the past 12 months, did you worry whether your food would run out before you got money to buy more?: Never true Do you have trouble paying for medicines?: No Do you have trouble getting transportation to medical appointments?: No Do you have trouble paying your heating and electricity bill?: No Do you have trouble taking care of your child, family member or friend?: No Do you have trouble with day-to-day activities such as bathing, preparing meals, shopping, managing finances, etc.?: No Are you currently unemployed and looking for a job?: No Are you interested in more education?: No Please select the resources that you would like help with: None Currently or been in a relationship where the following occur: no concerns reported THRIVE Score: 0 AUDIT C Alcohol Use Questionnaire (AUDIT-C) 1. How often do you have a drink containing alcohol?: Monthly or less 2. How many drinks containing alcohol do you have on a typical day when you are drinking?: 1 or 2 3. How often do you have six or more drinks on one occasion?: Never Total Score: 1 OZ-7 AMB Questionnaire OZ-7 Date OZ - 7 assessed: 04/09/23 Feeling nervous, anxious, or on edge: 1 = Several days Not being able to stop or control worryin = Not at all Worrying too much about different things: 0 = Not at all Trouble relaxin = Several days Being so restless that it is hard to sit still: 0 = Not at all Becoming easily annoyed or irritable: 0 = Not at all Feeling afraid as if something awful might happen: 0 = Not at all Total OZ-7 score (0-4 normal; 5-9 mild; 10-14 moderate; 15-21 severe): 2 Source: Developed by Drs. Breezy Garces, Yelitza Chaudhry, Jonathan Matthew and colleagues, with an educational ingris from [employer]. OZ-7 Assessment Billing OZ-7 Assessment Tool: OZ-7 Assessment 52795 Review of Systems Const All systems reviewed & are unremarkable except as noted in HPI and below Physical exam (Primary Care) Vital Signs: Last Vital Signs Temp 97.8 F 04/09/23 10:38 Pulse 80 04/09/23 10:38 Resp 13 04/09/23 10:38 BP 120/74 04/09/23 10:38 Pulse Ox 99 04/09/23 10:38 Oxygen Delivery Method Room Air 04/09/23 10:38 BMI result Body Mass Index 32.3 BMI Assessment/Plan discussion: High BMI High, discussed plan: lifestyle, weight reduction and dietary Tobacco/Smoking Status: Tobacco use Status Tobacco use date assessed 04/09/23 04/09/23 10:46 Patient Tobacco Use Status Never used Tobacco 04/09/23 10:35 e-Cigarette/Vaping Use Never Used 04/09/23 10:35 PHQ-9: PHQ-9 Score PHQ-9: Total score 4 04/09/23 10:46 Depression Screening Interpretation: Negative Thrive Assessment: Date of Thrive Assessment Date Thrive assessed 04/09/23 04/09/23 10:46 Currently or been in a relationship where the following occur: no concerns reported Assessment and Plan Assessment & Plan (1) Generalized anxiety disorder: Comment: Managed well on clonidine at night. Refill sent today. Miss several doses of the BuSpar and felt she was fine without it. Therefore this medication has been discontinued. Plan: Start bupropion 150 mg once daily in the morning. This is being given to help her anxiety and depression as well as help her with weight loss. I will bring her back in 2 months to evaluate the effectiveness. Code(s): F41.1 - Generalized anxiety disorder (2) Herpes simplex: Comment: Suppressed on acyclovir. Continue Code(s): B00.9 - Herpesviral infection, unspecified (3) Ocular migraine: Comment: No current complaints. On clonidine which can help with suppression. Active with Neurology in the past Code(s): G43.109 - Migraine with aura, not intractable, without status migrainosus (4) H/O foot surgery: Code(s): Z98.890 - Other specified postprocedural states (5) BMI 32.0-32.9,adult: Comment: Status post sleeve gastrectomy in 2019. At [facility]. Has gained weight since this time. Admits to poor diet. Reviewed with her today admits to overeating and under eating. Not as physically active. Has what is going on in her social life. Educated that Adipex and phentermine would not be recommended for her status post sleeve gastrectomy. Risk of malnutrition. She has agreed to meet with a dietitian I have placed this referral. I have also started her on bupropion 150 mg once per day. The goal be to see if this helps her with the mindless eating as well as her mood. We will bring her back in 2 months to see how this is working for her. we can titrate to effect as needed. Code(s): Z68.32 - Body mass index [BMI] 32.0-32.9, adult Plan This note is constructed using voice recognition software. While every effort has been made to ensure accuracy in lifeline representatives, still errors may have been included Sometimes, these errors may affect the content or meaning of the given sentence . Total time spent caring for the patient today was 45 minutes. This includes time spent before the visit reviewing the chart, time spent during the visit, and time spent after the visit on documentation Orders: Referrals [employer] Nutrition Referral E66.3 - Overweight Medications: New bupropion HCl 150 mg PO QAM 90 tabs 0RF Changed From clonidine HCl 0.2 mg PO BEDTIME 30 days 30 tabs 3RF To clonidine HCl 0.2 mg PO BEDTIME 90 tabs 1RF Review Flu Vaccine not done: patient reason Coding Level of Care Code Est Pt Level 5 (38641) Diagnoses Generalized anxiety disorder F41.1 Herpes simplex B00.9 Ocular migraine G43.109 H/O foot surgery Z98.890 BMI 32.0-32.9,adult Z68.32 Additional Codes OZ-7 Assessment Billing - OZ-7 Assessment Tool: OZ-7 Assessment 25572 ([id number])
[2023-04-09 10:38] VITALS: BP 120/74; PULSE 80; RESP 13; TEMP 36.6; O2SAT 99; BMI 32.3
== END ==
PROVIDERS: PCP Nurse Practitioner Family; Visit Provider Nurse Practitioner Family
DX: F41.1 Generalized anxiety disorder (principal); B00.9 Herpesviral infection, unspecified; G43.109 Migraine with aura, not intractable, without status migrainosus; Z98.890 Other specified postprocedural states; Z68.32 Body mass index [BMI] 32.0-32.9, adult
CPT/HCPCS: 99215

== ENCOUNTER 2023-07-29 11:26 | Outpatient (AMB) | payer OTHER, SELFPAY ==
--- NOTE | 2023-07-29 11:28 | MHC.OFFVISWM ---
VS Expanded 07/29/23 11:34 BP 123/66 Blood Pressure Location Rt brachial Blood Pressure Position Sitting Pulse 74 Pulse Source Pulse Oximeter Temp 97.4 F Temperature Source Tympanic Pulse Oximetry 98 Oxygen Delivery Method Room Air Height 5 ft 5 in Weight 193 lb 6.4 oz BMI 32.2 Body Fat % 40.0 Body Fat Mass 77.4 Fat Free Mass 116.0 Visceral Fat Rating 9.0 Body Water % 42.9 Body Water Mass 77.4 Muscle Mass/Score 110.0 Basal Metabolic Rate/Score 1,603 Intake Visit Reasons: (OV) PO LSG 09/09/19 Sales Order Specialist Required: No Allergies latex [Latex] Allergy (Severe, Verified 04/09/23 10:57) SWELLING,ITCHING codeine [CODEINE] Allergy (Intermediate, Verified 04/09/23 10:57) N/V levofloxacin [From Levaquin] Allergy (Mild, Verified 04/09/23 10:57) N/V Medication List - Last Reconciled 07/29/23 by AMBER Herrera bupropion HCl XL (Wellbutrin XL) 300 mg PO QAM cetirizine 10 mg PO DAILY HPI Comments Details: Patient is a 47-year-old female who returns to the office today in follow-up. She is approximately 3 years 11 months post sleeve gastrectomy performed on 09/09/[address] Del Cid. She was last seen in the office on 01/18/2020. Weight today is 193.4 lb with a BMI of 32.2. She states that her lowest weight was approximately 160 lb. in September 2021. She has been at 180-190 pounds since. She has not followed up in the last 3 years. She is taking a womens MVI daily States her goal is to reach 170 pounds. Meal plan: Fairlife shake 30 gm in coffee nothing until dinner chicken salad, rice at night or skip sweet potato chips gummy bears at 11 pm Drinking 30-60 oz water, 20 oz coke zero once on weekends., no etoh, no tobacco or cannabis Exercise plan: grow with walker on [employer] 20 minutes started last week free weight and kettle bells in house. [facility] Medical History Constipation Generalized anxiety disorder Intestinal malabsorption Overweight Surgical History S/P excision of ganglion cyst S/P tonsillectomy S/P RIA (total abdominal hysterectomy) Hx of breast biopsy Hx laparoscopic cholecystectomy History of sleeve gastrectomy Family History Father No problems noted. Mother Stroke Son No problems noted. Daughter No problems noted. 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 Cognitive needs: No Hearing needs: No Vision needs: No Physical Exam Const General: cooperative and no acute distress Orientation/consciousness: patient oriented x3 Resp Effort & Inspection: normal respiratory effort Auscultation: clear to auscultation bilaterally Cardio Rate: regular rate Rhythm: regular rhythm GI Inspection: Yes normal to inspection and Yes incision (well healed) Palpation (GI): Soft to palpation and no masses Neuro General: patient oriented x3 Assessment & Plan Assessment & Plan (1) S/P laparoscopic sleeve gastrectomy: Code(s): Z98.84 - Bariatric surgery status Category: Surgical Plan: 47-year-old female, returns to the office for the 1st time in approximately 3 years. We will check annual labs. We have encouraged her to take bariatric fusion multivitamin and calcium plus D. Change meal plan to include fair life 30 g shake Zone perfect bar Meal 7 forks protein and 7 forks vegetables For exercise, she wishes to use the home videos, grow with Hoang and I have encouraged her to do this daily as this has worked well for her in the past. She has been given my cell phone number to communicate weekly with her weight and with any questions or concerns. Return to clinic in approximately 6 weeks. Orders: Orders Lipid Panel Today E66.9 - Obesity, unspecified, Z98.84 - Bariatric surgery status Vitamin B12 and Folate Today E66.9 - Obesity, unspecified, Z98.84 - Bariatric surgery status Zinc Today E66.9 - Obesity, unspecified, Z98.84 - Bariatric surgery status Vitamin B1 Today E66.9 - Obesity, unspecified, Z98.84 - Bariatric surgery status TSH reflex Free T4 Today E66.9 - Obesity, unspecified, Z98.84 - Bariatric surgery status Ferritin Today E66.9 - Obesity, unspecified, Z98.84 - Bariatric surgery status Insulin Today E66.9 - Obesity, unspecified, Z98.84 - Bariatric surgery status Hemoglobin A1c Today E66.9 - Obesity, unspecified, Z98.84 - Bariatric surgery status Complete Blood Count Auto Diff Today E66.9 - Obesity, unspecified, Z98.84 - Bariatric surgery status IRON PROFILE Today E66.9 - Obesity, unspecified, Z98.84 - Bariatric surgery status C Reactive Protein Today E66.9 - Obesity, unspecified, Z98.84 - Bariatric surgery status Vitamin A Today E66.9 - Obesity, unspecified, Z98.84 - Bariatric surgery status Vitamin D 25-OH Total Today E66.9 - Obesity, unspecified, Z98.84 - Bariatric surgery status Basic Metabolic Panel Today E66.9 - Obesity, unspecified, Z98.84 - Bariatric surgery status Medications: Refilled bupropion HCl XL (Wellbutrin XL) 300 mg PO QAM 30 tabs 0RF
[2023-07-29 11:34] VITALS: BP 123/66; PULSE 74; TEMP 36.3; O2SAT 98; BMI 32.2
== END 2023-07-29 12:00 | disposition home or self-care (01) ==
PROVIDERS: PCP Nurse Practitioner Family; Visit Provider Physician Assistant Surgical
DX: E66.9 Obesity, unspecified (principal); Z68.32 Body mass index [BMI] 32.0-32.9, adult; Z90.3 Acquired absence of stomach [part of]; Z98.84 Bariatric surgery status
CPT/HCPCS: 99214

== ENCOUNTER → 2023-07-29 11:26 | Outpatient (BNVA) | payer OTHER, SELFPAY | PROVIDERS: PCP Nurse Practitioner Family; Visit Provider Physician Assistant Surgical ==

== ENCOUNTER 2023-08-09 13:38 | Outpatient (AMB) | payer OTHER, SELFPAY ==
--- NOTE | 2023-08-09 13:41 | A.OFFPC_ITS ---
Vital Signs 3 08/09/23 13:43 Height 5 ft 5 in Weight 197 lb 6 oz BMI 32.8 BP 116/76 Blood Pressure Location Rt brachial Position Sitting Respiration 14 Pulse 88 Pulse Source Pulse Oximeter Temp 97.8 F Temp Source Temporal Artery Scan Pulse Oximetry (%) 99 Oxygen Delivery Method Room Air Intake Visit Reasons: Lump in the back Fulfillment Associate Required: No Accompanied by: daughters Allergies latex [Latex] Allergy (Severe, Verified 08/09/23 13:50) SWELLING,ITCHING codeine [CODEINE] Allergy (Intermediate, Verified 08/09/23 13:50) N/V levofloxacin [From Levaquin] Allergy (Mild, Verified 08/09/23 13:50) N/V Medication List - Last Reconciled 08/09/23 by BENTON Petersen- bupropion HCl XL (Wellbutrin XL) 300 mg PO QAM cetirizine 10 mg PO DAILY clonidine HCl 0.2 mg PO DAILY Tobacco use date assessed: 04/09/23 Dental Screening Dental Screen Date: 04/09/23 HPI HPI Comments 2 History of Present Illness0 Details 47-year-old female with generalized anxi ety disorder, ocular migraine with aura, herpes, seasonal allergies 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 in the past for suppression with good effect. This was discontinued and she was started on p.r.n. acyclovir. Unfortunately this has not seemed to help her outbreaks. She wishes to go back on daily suppressive therapy. Insomnia/OZ- continue to use clonidine 0.2 mg with great effect. Would like to continue this and needs a refill Obesity - she was started on bupropion 150 mg to aid in weight loss. This was on affect days so this dose was increased to 300 mg. However she continues to not be able to lose weight. She was previously managed by the bariatric clinic. She did make a follow up appointment with them however she does not feel that she is going to be able to stick to the meal plan which involves shakes, greens and lean meat. She remains interested in medications such as Adipex or the like. New problem - incidental finding of a lump in her left posterior back. Does not know what made her reach back there but noticed this area. Not painful. Overlying skin is fine. No trauma. No constitutional symptoms associated. Plan Restart valacyclovir 500 mg p.o. q.day Refill clonidine 0.2 mg p.o. q.h.s. Increase bupropion XL from 300 mg daily to 450 mg daily. Refer to metabolic clinic at [facility]. The goal of this referral would be to help her get on medications to help her lose weight. Advised if there is any problems that she can send me a message on the portal. Soft tissue ultrasound of the left flank area to characterize the palpable area on exam today. PFSH Medical History Constipation Generalized anxiety disorder Intestinal malabsorption Overweight Surgical History S/P excision of ganglion cyst S/P tonsillectomy S/P RIA (total abdominal hysterectomy) Hx of breast biopsy Hx laparoscopic cholecystectomy History of sleeve gastrectomy Family History Father No problems noted. Mother Stroke Son No problems noted. Daughter No problems noted. 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 Cognitive needs: No Hearing needs: No Vision needs: No Questionnaire Thrive Questionnaire Date Thrive assessed: 04/09/23 OZ-7 AMB Questionnaire OZ-7 Date OZ - 7 assessed: 04/09/23 Source: Developed by Drs. Breezy Garces, Yelitza Chaudhry, Jonathan Matthew and colleagues, with an educational ingris from [employer]. Review of Systems Const All systems reviewed & are unremarkable except as noted in HPI and below Physical exam (Primary Care) Vital Signs: Last Vital Signs Temp 97.8 F 08/09/23 13:43 Pulse 88 08/09/23 13:43 Resp 14 08/09/23 13:43 BP 116/76 08/09/23 13:43 Pulse Ox 99 08/09/23 13:43 Oxygen Delivery Method Room Air 08/09/23 13:43 BMI result Body Mass Index 32.8 Tobacco/Smoking Status: Tobacco use Status Tobacco use date assessed 04/09/23 08/09/23 13:48 Patient Tobacco Use Status Never used Tobacco 08/09/23 13:48 e-Cigarette/Vaping Use Never Used 08/09/23 13:48 Thrive Assessment: Date of Thrive Assessment Date Thrive assessed 04/09/23 08/09/23 13:48 Back/Spine/Pelvis Back/spine/pelvis image: 2 1. Palpable oblong soft spongy area palpable, , not visible overlying skin is intact Assessment and Plan Assessment & Plan (1) Soft tissue lesion: Code(s): M79.9 - Soft tissue disorder, unspecified (2) BMI 32.0-32.9,adult: Comment: Status post sleeve gastrectomy in 2020. At [facility]. Has gained weight since this time. Admits to poor diet. Reviewed with her today admits to overeating and under eating. Not as physically active. Educated preciously that Adipex and phentermine would not be recommended for her status post sleeve gastrectomy. Risk of malnutrition. Code(s): Z68.32 - Body mass index [BMI] 32.0-32.9, adult (3) Generalized anxiety disorder: Comment: Managed well on clonidine at night. Refill sent today. Code(s): F41.1 - Generalized anxiety disorder (4) Herpes simplex: Comment: Suppressed on acyclovir. Continue Code(s): B00.9 - Herpesviral infection, unspecified Orders: Orders 2 US abdomen fernandez w elastography Today M79.9 - Soft tissue disorder, unspecified Referrals 2 Metabolic Clinic Referral E66.9 - Obesity, unspecified, Z68.32 - Body mass index [BMI] 32.0-32.9, adult Medications: New 2 clonidine HCl 0.2 mg PO DAILY 90 tabs 0RF bupropion HCl XL 150 mg PO QAM 90 tabs 0RF Refilled 2 bupropion HCl XL (Wellbutrin XL) 300 mg PO QAM 90 tabs 0RF valacyclovir 500 mg PO DAILY 90 tabs 2RF B00.1 - Herpesviral vesicular dermatitis Patient Instructions: rto in 3 months for routine f/u. US results to be posted to portal w/ plan Plan Restart valacyclovir 500 mg p.o. q.day Refill clonidine 0.2 mg p.o. q.h.s. Increase bupropion XL from 300 mg daily to 450 mg daily. Refer to metabolic clinic at [facility]. The goal of this referral would be to help her get on medications to help her lose weight. Advised if there is any problems that she can send me a message on the portal. Soft tissue ultrasound of the left flank area to characterize the palpable area on exam today. Coding Level of Care Code Est Pt Level 4 (99850) Complex EM visit Add On G2211 Diagnoses Soft tissue lesion M79.9 BMI 32.0-32.9,adult Z68.32 Generalized anxiety disorder F41.1 Herpes simplex B00.9
[2023-08-09 13:43] VITALS: BP 116/76; PULSE 88; RESP 14; TEMP 36.6; O2SAT 99; BMI 32.8
== END 2023-08-09 15:09 | disposition home or self-care (01) ==
PROVIDERS: PCP Nurse Practitioner Family; Visit Provider Nurse Practitioner Family
DX: M79.9 Soft tissue disorder, unspecified (principal); Z68.32 Body mass index [BMI] 32.0-32.9, adult; F41.1 Generalized anxiety disorder; B00.9 Herpesviral infection, unspecified
CPT/HCPCS: 99214; G2211

== ENCOUNTER 2023-11-07 12:00 | Outpatient (REF) | payer OTHER, SELFPAY ==
[2023-11-07 14:56] LABS: MANUAL DIFF FLAG NO
[2023-11-07 15:13] LABS: Basophils Percent Auto 0.3 % (0-2); Eosinophils Percent Auto 0.5 % (0-4); Hematocrit 38.5 % (37.0-47.0); Hemoglobin 13.2 g/dl (12.0-16.0); Imm Gran Abs Auto 0.02 X10*3/uL (0.00-0.03); Imm Gran Pct Auto 0.2 % (0.0-0.4); Lymphocytes Absolute Auto 2.8 X10*3/uL (1.2-4.9); Lymphocytes Percent Auto 32.5 % (20-40); Mean Corpuscular HGB Conc 34.3 g/dl (31.0-35.0); Mean Corpuscular Hemoglobin 29.9 pg (27.0-33.0); Mean Corpuscular Volume 87.3 fL (80.0-98.0); Monocytes Absolute Auto 0.7 X10*3/uL (0.1-1.2); Monocytes Percent Auto 7.6 % (2-11); Neutrophils Absolute Auto 5.2 x10*3/uL (2.0-8.3); Neutrophils Percent Auto 58.9 % (45-73); Platelet Count 335 X10*3/uL (160-400); Red Blood Count 4.41 X10*6/uL (4.20-5.50); Red Cell Distribution Width 13.1 % (11.0-16.0); White Blood Count 8.7 X10*3/uL (4.8-10.8)
[2023-11-07 15:53] LABS: Anion Gap 10 (12-20); Blood Urea Nitrogen 8 mg/dL (9-16); C Reactive Protein 0.26 mg/dL (< or = 0.50); Calcium 9.1 mg/dL (8.4-10.2); Carbon Dioxide 27 mmol/L (22-29); Chloride 106 mmol/L (96-108); Cholesterol 182 mg/dL (<200); Estimated Glomerular Filt Rate > 60; Glucose Random 86 mg/dL (60-115); HDL Cholesterol 45 mg/dL (>40); Iron 120 mcg/dL (30-160); LDL Cholesterol Calculated 105 mg/dL (<100); Percent Iron Saturation 43 % (15-50); Potassium 4.1 mmol/L (3.3-5.1); Sodium 139 mmol/L (135-145); Total Iron Binding Capacity 278 mcg/dL (228-428); Triglycerides 161 mg/dL (<150); Unsaturated Iron Binding 158 ug/dL
[2023-11-07 16:00] LABS: Estimated Average Glucose 97 mg/dL; Total Hemoglobin (HGBA1C) 3281.1259 umol/L
[2023-11-07 16:15] LABS: Ferritin 77 ng/mL (10-250); Insulin 4 uU/mL (2-29); TSH reflex Free T4 1.22 uIU/mL (0.32-4.0); Vitamin D 25-OH Total 42.3 ng/mL (>30)
[2023-11-07 16:30] LABS: Folate 7.5 ng/mL (> or = 4.0); Vitamin B12 770 pg/mL (200-900)
[2023-11-11 23:53] LABS: Vitamin A 49 mcg/dL (38-98)
[2023-11-12 02:59] LABS: Zinc 63 mcg/dL (60-130)
[2023-11-15 06:18] LABS: Vitamin B1 6 nmol/L (8-30)
== END 2023-11-07 12:01 | disposition home or self-care (01) ==
LOC: HO.WFDLDS 12:00
PROVIDERS: Physician Assistant Surgical; PCP Nurse Practitioner Family; Visit Provider Nurse Practitioner Family
DX: E66.9 Obesity, unspecified (principal); F41.1 Generalized anxiety disorder; M79.9 Soft tissue disorder, unspecified; Z68.33 Body mass index [BMI] 33.0-33.9, adult; Z98.84 Bariatric surgery status; Z79.899 Other long term (current) drug therapy
CPT/HCPCS: 36415; 80048; 80061; 82306; 82607; 82728; 82746; 83036; 83525; 83540; 84425; 84443; 84590; 84630; 85025; 86140; 96127

== ENCOUNTER 2023-11-07 12:00 | Outpatient (AMB) | payer OTHER, SELFPAY ==
--- NOTE | 2023-11-07 12:03 | A.OFFPC_ITS ---
Vital Signs 11/07/23 12:04 Height 5 ft 5 in Weight 201 lb 6 oz BMI 33.5 BP 122/72 Blood Pressure Location Rt brachial Position Sitting Respiration 14 Pulse 64 Pulse Source Pulse Oximeter Pulse Oximetry (%) 96 Oxygen Delivery Method Room Air Intake Visit Reasons: Anxiety follow-up/ med review Intake Note: follow up on meds Allergies latex [Latex] Allergy (Severe, Verified 11/07/23 12:19) SWELLING,ITCHING codeine [CODEINE] Allergy (Intermediate, Verified 11/07/23 12:19) N/V levofloxacin [From Levaquin] Allergy (Mild, Verified 11/07/23 12:19) N/V Medication List - Last Reconciled 11/07/23 by Maggie Fairchild, MECHANICAL EQUIPMENT SALES ENGINEER- bupropion HCl XL 150 mg PO QAM cetirizine 10 mg PO DAILY clonidine HCl 0.2 mg PO DAILY valacyclovir 500 mg PO DAILY Tobacco use date assessed: 04/09/23 Dental Screening Dental Screen Date: 04/09/23 HPI HPI Comments History of Present Illness Details 48-year-old female with generalized anxi ety disorder, ocular migraine with aura, herpes, seasonal allergies Status post left bunionectomy 01/16/2023 done by [facility], status post tonsillectomy, herpes suppressed on acyclovir abdominal hysterectomy*has ovaries, cholecystectomy, sleeve gastrectomy 2019 Social: 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 At the last office visit her Wellbutrin was increased to 450 mg to help her with anxiety and weight loss. She only took 2 doses. In regards to her mood she thought that it worked wonders. However she quickly developed a sensation of dizziness which she describes as strange feeling. She did not have any syncope. She Googled the side effects of the medication and saw that seizure was 1 of them and therefore stopped the medication immediately. She does not have a seizure history. She did not have any seizures. Since she stopped taking the medication she has gained weight and has had an uptick in her anxiety. She just got a new job promotion which comes with its own stressors. She finds herself snacking more. She was on buspirone in the past for anxiety which helped and she wondered if perhaps she can start this Clonidine continues to work well for her insomnia. She is overdue for labs. She will get these done today. She also had an ultrasound of her chest to evaluate an area that she found incidentally, she has not gotten this done. I have asked for her to follow up on this. She tells me that recently she has had abnormal breast imaging done at [facility]. I do not have these records but I will request a copy. Plan Continue clonidine 0.2 mg p.o. q.h.s. Restart bupropion XL 150 mg x 1 week, 300 mg x 2 weeks then 450 mg. If she experiences side effects okay to decrease down to 300 mg and trial the increase again. Reassured about this side effect. Start buspirone 5-10 mg daily to help with breakthrough anxiety. Get labs done in ultrasound Return to the office in November as scheduled for a complete physical exam and to follow up on the above, sooner as needed This note is constructed using voice recognition software. While every effort has been made to ensure accuracy in clinical laboratory service teacher, still errors may have been included Sometimes, these errors may affect the content or meaning of the given sentence . Total time spent caring for the patient today was 30 minutes. This includes time spent before the visit reviewing the chart, time spent during the visit, and time spent after the visit on documentation PFSH Medical History Constipation Generalized anxiety disorder Intestinal malabsorption Overweight Surgical History S/P excision of ganglion cyst S/P tonsillectomy S/P RIA (total abdominal hysterectomy) Hx of breast biopsy Hx laparoscopic cholecystectomy History of sleeve gastrectomy Family History Father No problems noted. Mother Stroke Son No problems noted. Daughter No problems noted. 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 Cognitive needs: No Hearing needs: No Vision needs: No Questionnaire PHQ-9 Over the last 2 weeks, how often have you been bothered by any of the following problems? 1. Little interest or pleasure in doing things: not at all 2. Feeling down, depressed, or hopeless: not at all 3. Trouble falling or staying asleep, or sleeping too much: not at all 4. Feeling tired or having little energy: not at all 5. Poor appetite or overeating: not at all 6. Feeling bad about yourself - or that you are a failure or have let yourself or your family down: not at all 7. Trouble concentrating on things, such as reading the newspaper or watching television: not at all 8. Moving or speaking so slowly that other people could have noticed. Or the opposite - being so fidgety or restless that you have been moving around a lot more than usual: not at all 9. Thoughts that you would be better off or of hurting yourself in some way: not at all Total score: 0 Depression Screening Interpretation: Negative Depression Screening Done: Yes Source: Developed by Drs. Breezy Garces, Yelitza Chaudhry, Jonathan Matthew and colleagues, with an educational ingris from [employer]. Thrive Questionnaire Date Thrive assessed: 11/07/23 I am a: Patient What is your living situation today?: I have a steady place to live Within the past 12 months, did the food you bought not last and you didn't have the money to get more?: Never true Within the past 12 months, did you worry whether your food would run out before you got money to buy more?: Never true Do you have trouble paying for medicines?: No Do you have trouble getting transportation to medical appointments?: No Do you have trouble paying your heating and electricity bill?: No Do you have trouble taking care of your child, family member or friend?: No Do you have trouble with day-to-day activities such as bathing, preparing meals, shopping, managing finances, etc.?: No Are you currently unemployed and looking for a job?: No Are you interested in more education?: No Please select the resources that you would like help with: None THRIVE Score: 0 OZ-7 AMB Questionnaire OZ-7 Date OZ - 7 assessed: 09/19/24 Feeling nervous, anxious, or on edge: 3 = Nearly every day Not being able to stop or control worryin = More than half the days Worrying too much about different things: 2 = More than half the days Trouble relaxin = Nearly every day Being so restless that it is hard to sit still: 0 = Not at all Becoming easily annoyed or irritable: 0 = Not at all Feeling afraid as if something awful might happen: 0 = Not at all Total OZ-7 score (0-4 normal; 5-9 mild; 10-14 moderate; 15-21 severe): 10 Source: Developed by Drs. Breezy Garces, Yelitza Chaudhry, Jonathan Matthew and colleagues, with an educational ingris from [employer]. OZ-7 Assessment Billing OZ-7 Assessment Tool: OZ-7 Assessment 69756 Physical exam (Primary Care) Vital Signs: Last Vital Signs Pulse 64 11/07/23 12:04 Resp 14 11/07/23 12:04 BP 122/72 11/07/23 12:04 Pulse Ox 96 11/07/23 12:04 Oxygen Delivery Method Room Air 11/07/23 12:04 BMI result Body Mass Index 33.5 Tobacco/Smoking Status: Tobacco use Status Tobacco use date assessed 04/09/23 11/07/23 12:06 Patient Tobacco Use Status Never used Tobacco 11/07/23 12:06 e-Cigarette/Vaping Use Never Used 11/07/23 12:06 PHQ-9: PHQ-9 Score PHQ-9: Total score 0 11/07/23 12:19 Depression Screening Interpretation: Negative Thrive Assessment: Date of Thrive Assessment Date Thrive assessed 11/07/23 11/07/23 12:07 Const Other: Awake alert NAD RRR LS CTAB Mood and affect appropriate Back/Spine/Pelvis Back/spine/pelvis image: Left lower back, flank area 1. Palpable oblong soft spongy area palpable, , not visible overlying skin is intact Assessment and Plan Assessment & Plan (1) Soft tissue lesion: Code(s): M79.9 - Soft tissue disorder, unspecified (2) Obesity (BMI 30-39.9): Code(s): E66.9 - Obesity, unspecified (3) Generalized anxiety disorder: Comment: Managed well on clonidine at night. Code(s): F41.1 - Generalized anxiety disorder Medications: New bupropion HCl XL 300 mg PO QAM 90 tabs 0RF buspirone 10 mg PO DAILY 90 tabs 0RF Refilled bupropion HCl XL 150 mg PO QAM 90 tabs 0RF clonidine HCl 0.2 mg PO DAILY 90 tabs 0RF Patient Instructions: Wellbutrin XL 150mg take 1 tab daily in the AM x 1 week, then 300mg for 2 weeks then ok to increase to 450mg daily. Reduce back down to 300mg and slowly increase back up if able. Coding Level of Care Code Est Pt Level 4 (46390) Complex EM visit Add On G2211 Diagnoses Soft tissue lesion M79.9 Obesity (BMI 30-39.9) E66.9 Generalized anxiety disorder F41.1 Additional Codes OZ-7 Assessment Billing - OZ-7 Assessment Tool: OZ-7 Assessment [id number] ([id number])
[2023-11-07 12:04] VITALS: BP 122/72; PULSE 64; RESP 14; O2SAT 96; BMI 33.5
== END 2023-11-07 13:25 | disposition home or self-care (01) ==
PROVIDERS: PCP Nurse Practitioner Family; Visit Provider Nurse Practitioner Family
DX: M79.9 Soft tissue disorder, unspecified (principal); E66.9 Obesity, unspecified; Z68.33 Body mass index [BMI] 33.0-33.9, adult; F41.1 Generalized anxiety disorder

== ENCOUNTER 2023-11-26 10:32 | Outpatient (REF) | payer OTHER, SELFPAY ==
--- NOTE | ~2023-11-26 | US_ITS ---
EXAMINATION: US CHEST CLINICAL INFORMATION: Superficial lump on the back COMPARISON: None available. TECHNIQUE: Real-time ultrasound in the region of concern in the posterior inferior superficial left lower buttock/upper back using grayscale and color Doppler technique. FINDINGS: There is a questionable 3.4 x 2.2 x 1.2 cm isoechoic soft tissue fullness beneath the skin with internal flow on color Doppler interrogation. US/US chest IMPRESSION: Artifact versus soft tissue mass. Consider MRI with contrast. Electronically signed by: Cristobal Argueta MD 12/24/2023 07:08 AM DOA
== END 2023-11-26 10:33 | disposition home or self-care (01) ==
LOC: HO.HMGCX 10:32
PROVIDERS: PCP Nurse Practitioner Family; Visit Provider Nurse Practitioner Family
DX: M79.9 Soft tissue disorder, unspecified (principal)
CPT/HCPCS: 76604; 90471; 90656; 96127

== ENCOUNTER → 2023-11-26 10:33 | Outpatient (BNV) | payer OTHER, SELFPAY | PROVIDERS: PCP Nurse Practitioner Family; Visit Provider Radiology Diagnostic Radiology | DX: R22.2 Localized swelling, mass and lump, trunk (principal) | CPT/HCPCS: 76604 ==

== ENCOUNTER 2023-11-26 13:21 | Outpatient (AMB) | payer OTHER, SELFPAY ==
--- NOTE | 2023-11-26 13:41 | A.OFFPC_ITS ---
Vital Signs 11/26/23 13:43 Height 5 ft 5 in Weight 198 lb 8 oz BMI 33.0 BP 118/70 Blood Pressure Location Lt brachial Position Sitting Respiration 14 Pulse 72 Pulse Source Pulse Oximeter Pulse Oximetry (%) 96 Oxygen Delivery Method Room Air Intake Visit Reasons: cpe Intake Note: physical Allergies latex [Latex] Allergy (Severe, Verified 11/26/23 14:33) SWELLING,ITCHING codeine [CODEINE] Allergy (Intermediate, Verified 11/26/23 14:33) N/V levofloxacin [From Levaquin] Allergy (Mild, Verified 11/26/23 14:33) N/V Medication List - Last Reconciled 11/26/23 by BENTON Petersen- bupropion HCl XL 300 mg PO QAM buspirone 10 mg PO DAILY cetirizine 10 mg PO DAILY clonidine HCl 0.2 mg PO DAILY thiamine HCl (vitamin B1) 100 mg PO DAILY 90 days valacyclovir 500 mg PO DAILY Tobacco use date assessed: 04/09/23 Dental Screening Dental Screen Date: 04/09/23 HPI HPI Comments History of Present Illness Details 48-year-old female with generalized anxi ety disorder, ocular migraine with aura, herpes, seasonal allergies, b1 deficiency Status post left bunionectomy 01/16/2023 done by [facility], status post tonsillectomy, herpes suppressed on acyclovir abdominal hysterectomy*has ovaries, cholecystectomy, sleeve gastrectomy 2019 Social: 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 Reports normal. Annual mammos. Report pending. Pap 2023 annual [employer] visits DEXA has never had one, LMP 2018 s/p RIA. Baseline ordered today Colonoscopy has never had one, Cologaurd ordered today. Denies personal or fmxh of colon ca Tdap 2016. Flu today. Specialist Bariatric surgery PRN Neurology PRN Podiatry PRN In Home [facility] Here today for CPE and f/u. -ocular migraines was on propranolol in the past; was ffd by Neuro in the past; migraines are much better s/p gastric surgery. -right shoulder has sharp pain, when lezama ses arm or doing anything; denies any overt injury. Started 3 weeks ago. Right hand dominant. Takes APAP which takes edge off. Normal strength. No previous hx of surgeries or injections. -Did soft tissue US this AM results pe nding OZ/Wt loss: Taking the Wellbutrin XL 300mg, feels spacy. The 150mg did not help. Not forgetting things. She is losing weight. Admits external stressors; she Asked to step down from promotion; to help her finances Taking 10mg buspar in the AM to help w/ anxiety. Admit she does not feel frantic or overreacting. Feels she is holding it in. 11/07/2023 labs WNL except B1 def Wears glasses; UTD on eye exam. Plan: Increase buspar from 10mg QD to up to 30mg/in the AM. Titrate using the 10mg tabs to effect, max dose fo 30mg. Ok to break up the dose up to Three times per day. Cont wellbutrin xl 300 mg QD as the side effects are tolerable Cont all meds as prescribed. Refer to [facility] Ortho for eval and tx of R shoulder pain; take APAP prn. RTO 3-4 months routine fu Mood/Wt loss, sooner PRN This note is constructed using voice recognition software. While every effort has been made to ensure accuracy in primary care pediatrician, still errors may have been included Sometimes, these errors may affect the content or meaning of the given sentence . An additional 20 was spent addressing the problem(s) noted at todays visit. This includes time spent before the visit reviewing the chart, time spent during the visit, and time spent after the visit on documentation PFSH Medical History Constipation Generalized anxiety disorder Intestinal malabsorption Overweight Surgical History S/P excision of ganglion cyst S/P tonsillectomy S/P RIA (total abdominal hysterectomy) Hx of breast biopsy Hx laparoscopic cholecystectomy History of sleeve gastrectomy Family History Father No problems noted. Mother Stroke Son No problems noted. Daughter No problems noted. 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 Cognitive needs: No Hearing needs: No Vision needs: No Questionnaire PHQ-9 Over the last 2 weeks, how often have you been bothered by any of the following problems? 1. Little interest or pleasure in doing things: not at all 2. Feeling down, depressed, or hopeless: not at all 3. Trouble falling or staying asleep, or sleeping too much: not at all 4. Feeling tired or having little energy: not at all 5. Poor appetite or overeating: not at all 6. Feeling bad about yourself - or that you are a failure or have let yourself or your family down: not at all 7. Trouble concentrating on things, such as reading the newspaper or watching television: not at all 8. Moving or speaking so slowly that other people could have noticed. Or the opposite - being so fidgety or restless that you have been moving around a lot more than usual: not at all 9. Thoughts that you would be better off or of hurting yourself in some way: not at all Total score: 0 75266 - PHQ-9 Billing: Yes Source: Developed by Drs. Breezy Garces, Yelitza Chaudhry, Jonathan Matthew and colleagues, with an educational ingris from [employer]. Thrive Questionnaire Date Thrive assessed: 11/26/23 I am a: Patient What is your living situation today?: I have a steady place to live Within the past 12 months, did the food you bought not last and you didn't have the money to get more?: Never true Within the past 12 months, did you worry whether your food would run out before you got money to buy more?: Never true Do you have trouble paying for medicines?: No Do you have trouble getting transportation to medical appointments?: No Do you have trouble paying your heating and electricity bill?: No Do you have trouble taking care of your child, family member or friend?: No Do you have trouble with day-to-day activities such as bathing, preparing meals, shopping, managing finances, etc.?: No Are you currently unemployed and looking for a job?: No Are you interested in more education?: No THRIVE Score: 0 AUDIT C Alcohol Use Questionnaire (AUDIT-C) 1. How often do you have a drink containing alcohol?: Monthly or less 2. How many drinks containing alcohol do you have on a typical day when you are drinking?: 1 or 2 3. How often do you have six or more drinks on one occasion?: Never Total Score: 1 OZ-7 AMB Questionnaire OZ-7 Date OZ - 7 assessed: 11/26/23 Feeling nervous, anxious, or on edge: 2 = More than half the days Not being able to stop or control worryin = More than half the days Worrying too much about different things: 2 = More than half the days Trouble relaxin = Several days Being so restless that it is hard to sit still: 0 = Not at all Becoming easily annoyed or irritable: 1 = Several days Feeling afraid as if something awful might happen: 0 = Not at all Total OZ-7 score (0-4 normal; 5-9 mild; 10-14 moderate; 15-21 severe): 8 Source: Developed by Drs. Breezy Garces, Yelitza Chaudhry, Jonathan Matthew and colleagues, with an educational ingris from [employer]. OZ-7 Assessment Billing OZ-7 Assessment Tool: OZ-7 Assessment 46710 Physical exam (Primary Care) Vital Signs: Last Vital Signs Pulse 72 11/26/23 13:43 Resp 14 11/26/23 13:43 BP 118/70 11/26/23 13:43 Pulse Ox 96 11/26/23 13:43 Oxygen Delivery Method Room Air 11/26/23 13:43 BMI result Body Mass Index 33.0 Tobacco/Smoking Status: Tobacco use Status Tobacco use date assessed 04/09/23 11/26/23 13:42 Patient Tobacco Use Status Never used Tobacco 11/26/23 13:42 e-Cigarette/Vaping Use Never Used 11/26/23 13:42 PHQ-9: PHQ-9 Score PHQ-9: Total score 0 11/26/23 14:43 Thrive Assessment: Date of Thrive Assessment Date Thrive assessed 11/26/23 11/26/23 13:46 Const Other: General: Well developed, well nourished, in no acute distress. Appears stated age. Head: Normocephalic, atraumatic. Eyes: Pupils are equal, round and reactive to light and accommodation. Conjunctivae are clear. Vision grossly normal. Ears: TMs clear AU, EACS WNL Nose: Patent, without discharge. Mouth: There are no ulcers or lesions noted. No inflammation, no post nasal drip, no plaques nor exudates. Neck: Supple, no adenopathy or thyromegaly. Lungs: Clear to auscultation bilaterally. No rales, rhonchi or wheeze noted. Good air flow in all saavedra. Heart: Regular rate and rhythm. No murmurs, click, rubs or gallops are noted. Abdomen: Bowel sounds present in all quadrants. The abdomen is soft, nontender, with no masses or organomegaly noted. No hernias are noted. Musculoskeletal: pain w palp over anterior shoulder at the deltoid insertion; FROM; decreased strenght. No edema or erythema. RUE neurovasc intact. Pulses: Peripheral pulses are equal and palpable bilaterally. Extremities: No clubbing, cyanosis nor edema is noted. Neurologic: Gait and station normal. Cranial Nerves 2-12 intact. Motor strength grossly symmetrical and intact. No sensory loss. Balance normal. Skin: No rashes, ulcers, or lesions noted. Turgor is good. Skin color is good. Hair and nails are without abnormalities. Soft tissue lesion left upper back remains the same, unchanged Psych: Normal eye contact, affect and mood appropriate, and normal interactions. Patient is alert and appropriate to context. Office Procedures Flu Questionnaire Does the patient have a severe egg allergy?: No Does the patient have severe life threatening allergies?: No Does the patient have a fever or illness today?: No Has the patient ever had Guillain-[place] Syndrome?: No Has the patient ever had any past reaction to a flu shot?: No Immunizations Fluarix Triv [id number] (PF) 45 mcg (15 mcg x 3)/0.5 mL IM syringe Performing Provider: ANISH Petersen Performing Location: [facility] Administered by: Iris Wang RN on 11/26/23 14:43 Dose Route Admin Location Dispensed Lot Number Expiration Date [facility] Carton Catcher 0.5 mL IM Left Deltoid 0.5 mL [id number] 08/17/24 [id number] [place] VIS Given Date VIS Provided VIS Publication Date 11/26/23 Single Vaccine 20 Eligibility Eligibility Date Funding Source Not [facility] Eligible 11/26/23 Private Coding Level of Care Code Est Pt Level 3 (21445) Est Pt Prev Care 40-64y(32673) Diagnoses Encounter for general adult medical examination with abnormal findings Z00.01 Screening for osteoporosis Z13.820 Menopause Z78.0 Generalized anxiety disorder F41.1 Ocular migraine G43.109 Herpes simplex B00.9 Acute pain of right shoulder M25.511 Chronicity: acute Obesity (BMI 30-39.9) E66.9 Class 1 obesity E66.811 Additional Codes OZ-7 Assessment Billing - OZ-7 Assessment Tool: OZ-7 Assessment 05299 ([id number]) Assessment & Plan Assessment & Plan (1) Encounter for general adult medical examination with abnormal findings: Code(s): Z00.01 - Encounter for general adult medical examination with abnormal findings Plan: . (2) Screening for osteoporosis: Code(s): Z.820 - Encounter for screening for osteoporosis Category: Medical Plan: . (3) Menopause: Code(s): Z78.0 - Asymptomatic menopausal state Category: Medical Plan: . (4) Generalized anxiety disorder: Comment: Managed well on clonidine at night. Code(s): F41.1 - Generalized anxiety disorder Category: Medical Plan: . (5) Ocular migraine: Comment: No current complaints. On clonidine which can help with suppression. Active with Neurology in the past Code(s): G43.109 - Migraine with aura, not intractable, without status migrainosus Category: Medical Plan: . (6) Herpes simplex: Comment: Suppressed on acyclovir. Continue Code(s): B00.9 - Herpesviral infection, unspecified Category: Medical Plan: . (7) Right shoulder pain: Code(s): M25.511 - Pain in right shoulder Category: Medical Qualifiers: Chronicity: acute Qualified Code(s): M25.511 - Pain in right shoulder Plan: . (8) Obesity (BMI 30-39.9): Code(s): E66.9 - Obesity, unspecified Category: Medical Plan: . (9) Class 1 obesity: Code(s): E66.811 - Obesity, class 1 Category: Medical Plan: . Plan . Orders: Orders XR DEXA axial skeleton Today Z13.820 - Encounter for screening for osteoporosis, Z78.0 - Asymptomatic menopausal state Influenza [id number] Immunization Today Z23 - Encounter for immunization Referrals Cologuard Test Z12.11 - Encounter for screening for malignant neoplasm of colon, Z12.12 - Encounter for screening for malignant neoplasm of rectum Orthopedics Referral M25.511 - Pain in right shoulder Medications: New acyclovir 5% (Zovirax) 1 appl topical ONCE 5 grams 5RF buspirone 10 mg PO TID 90 tabs 2RF Refilled valacyclovir 500 mg PO DAILY 90 tabs 2RF B00.1 - Herpesviral vesicular dermatitis thiamine HCl (vitamin B1) 100 mg PO DAILY 90 days 90 tabs 2RF clonidine HCl 0.2 mg PO DAILY 90 tabs 0RF Discontinued buspirone Discontinued Reason: Doctor's Order 10 mg PO DAILY 90 tabs 0RF Patient Instructions: Health screenings for women You should visit your health care provider from time to time, even if you are healthy. The purpose of these visits is to: Screen for medical issues Assess your risk for future medical problems Encourage a healthy lifestyle Update vaccinations and other preventive care services Help you get to know your provider in case of an illness Information Even if you feel fine, you should still see your provider for regular checkups. These visits can help you avoid problems in the future. For example, the only way to find out if you have high blood pressure is to have it checked regularly. High blood sugar and high cholesterol levels also may not have any symptoms in the early stages. A simple blood test can check for these conditions. There are specific times when you should see your provider or receive specific health screenings. The [place] Preventive Services Task Force publishes a list of recommended screenings. Below are screening guidelines for women ages 18 to 39. BLOOD PRESSURE SCREENING Your blood pressure should be checked at least once every 3 to 5 years if: Your blood pressure is in the normal range (top number less than 120 mm Hg and bottom number less than 80 mm Hg) You don't have risk factors for high blood pressure Ask your provider if you need your blood pressure checked more often if: The top number is 120 to 129 mm Hg or the bottom number is 70 to 79 mm Hg You have diabetes, heart disease, kidney problems, are overweight, or have certain other health conditions You have a first-degree relative with high blood pressure You are Black You had high blood pressure during a If the top number is 130 mm Hg or greater or the bottom number is 80 mm Hg or greater, this is considered stage 1 hypertension. Schedule an appointment with your provider to learn how you can reduce your blood pressure. Watch for blood pressure screenings in your area. Ask your provider if you can stop in to have your blood pressure checked. BREAST CANCER SCREENING Experts do not agree about the benefits of breast self-exams in finding breast cancer or saving lives. Talk to your provider about what is best for you. A screening mammogram is not recommended for most women under age 40. Your provider may discuss and recommend mammograms, MRI scans, or ultrasounds if you have an increased risk for breast cancer, such as: A mother or sister who had breast cancer at a young age (most often starting screening earlier than the age the close relative was diagnosed) You carry a high-risk genetic marker CERVICAL CANCER SCREENING Cervical cancer screening should start at age 21 years unless your provider ad vises otherwise. After the first test: Women ages 21 through 29 should have a Pap test every 3 years. Exoprts do not agree on whether HPV testing is recommended for this age group. Women ages 30 through 65 should be screened with either a Pap test every 3 years or the HPV test every 5 years or both tests every 5 years (called cotesting ). Women who have been treated for precancer (cervical dysplasia) should continue to have Pap tests for 20 years after treatment or until age 65, whichever is longer. If you have had your uterus and cervix removed (total hysterectomy), and you have not been diagnosed with cervical cancer or precancer (high grade cervical neoplasia), you do not need cervical cancer screening. CHOLESTEROL SCREENING Cholesterol screening should begin at: Age 45 for women with no known risk factors for coronary heart disease Age 20 for women with known risk factors for coronary heart disease Repeat cholesterol screening should take place: Every 5 years for women with normal cholesterol levels More often if changes occur in lifestyle (including weight gain and diet) More often if you have diabetes, heart disease, kidney problems, or certain other conditions DIABETES SCREENING You should be screened for diabetes starting at age 35 and then repeated every 3 years if you have no risk factors for diabetes. Screening may need to start earlier and be repeated more often if you have other risk factors for diabetes, such as: You have a first degree relative with diabetes. You are overweight or have obesity. You have high blood pressure, prediabetes, or a history of heart disease. Screening for diabetes should be done if you are planning to become and you are overweight and have other risk factors such as high blood pressure. DENTAL EXAM Go to the dentist once or twice every year for an exam and cleaning. Your dentist will evaluate if you need more frequent visits. EYE EXAM Have an eye exam every 5 to 10 years before age 40. If you have vision problems, have an eye exam every 2 years or more often if recommended by your provider. You should have an eye exam that includes an examination of your retina (back of your eye) at least every year if you have diabetes. IMMUNIZATIONS Commonly needed vaccines include: Flu shot: get one every year. COVID-19 vaccine: ask your provider what is best for you. Tetanus-diphtheria and acellular pertussis (Tdap) vaccine: have one at or after age 19 as one of your tetanus-diphtheria vaccines if you did not receive it as an adolescent. Tetanus-diphtheria: have a booster (or Tdap) every 10 years. Varicella vaccine: receive 2 doses if you never had chickenpox or the varicella vaccine. Hepatitis B vaccine: receive 2, 3, or 4 doses, depending on your exact circumstances. Measles, mumps, and rubella (MMR) vaccine: receive 1 to 2 doses if you are not already immune to MMR. Your provider can tell you if you are immune. Ask your provider about the human papillomavirus (HPV) vaccine if: You have not received the HPV vaccine in the past You have not completed the full vaccine series (you should catch up on this shot) Ask your provider if you should receive other immunizations if you have certain health problems that increase your risk for some diseases such as pneumonia. INFECTIOUS DISEASE SCREENING Women who are sexually active should be screened for chlamydia and gonorrhea up until age 25. Women 25 years and older should be screened for chlamydia and gonorrhea if at high risk. Screening for hepatitis C: All adults ages 18 to 79 should get a one-time test for hepatitis C. people should be screened at every . Screening for human immunodeficiency virus (HIV): All people ages 15 to 65 should get a one-time test for HIV. Depending on your lifestyle and medical history, you may also need to be screened for infections such as syphilis and HIV, as well as other infections. PHYSICAL EXAM All adults should visit their provider from time to time, even if they are healt hy. The purpose of these visits is to: Screen for disease Assess your risk of future medical problems Encourage a healthy lifestyle Update your vaccinations and other preventive care services Maintain a relationship with a provider in case of an illness Your height, weight, and BMI should be checked at every exam. During your exam, your provider may ask you about: Depression and anxiety Diet and exercise Alcohol and tobacco use Safety issues, such as using seat belts, smoke detectors, and intimate partner violence Your medicines and risk for interactions SKIN SELF-EXAM Your provider may check your skin for signs of skin cancer, especially if you're at high risk, such as if you: Have had skin cancer before Have close relatives with skin cancer Have a weakened immune system OTHER SCREENING Talk with your provider about colon cancer screening if you have a strong family history of colon cancer or polyps, or if you have had inflammatory bowel disease or polyps yourself. Routine bone density screening of women under 40 is not recommended.
[2023-11-26 13:43] VITALS: BP 118/70; PULSE 72; RESP 14; O2SAT 96; BMI 33.0
== END 2023-11-26 14:48 | disposition home or self-care (01) ==
PROVIDERS: PCP Nurse Practitioner Family; Visit Provider Nurse Practitioner Family
DX: Z00.00 Encounter for general adult medical examination without abnormal findings (principal); Z78.0 Asymptomatic menopausal state; Z68.33 Body mass index [BMI] 33.0-33.9, adult; E66.811 Obesity, class 1; Z13.820 Encounter for screening for osteoporosis; F41.1 Generalized anxiety disorder; G43.109 Migraine with aura, not intractable, without status migrainosus; B00.9 Herpesviral infection, unspecified; M25.511 Pain in right shoulder; Z23 Encounter for immunization

== ENCOUNTER 2023-12-20 10:13 | Outpatient (REF) | payer OTHER, SELFPAY ==
--- NOTE | ~2023-12-20 | MM_ITS ---
EXAMINATION: BONE DENSITOMETRY CLINICAL INDICATION: Encounter for screening for osteoporosis. COMPARISON: This is the patient's baseline examination. TECHNIQUE: Using a [employer] DXA System (software version: 13.1) manufactured by [employer], dual-energy x-ray absorptiometry was performed of the lumbar spine and left hip. The images are of good technical quality. Summary results are attached. FINDINGS: LEFT FEMUR, NECK: BMD 0.893 g/cm2, Z-score -0.9, T-score -1.0, normal. LEFT FEMUR, TOTAL: BMD 0.878 g/cm2, Z-score -1.3, T-score -1.0, normal. AP SPINE L1-L4: BMD 1.239 g/cm2, Z-score -0.2, T-score 0.5, normal. IDENTIFIED RISK FACTORS: Early menopause, secondary osteoporosis (partial gastrectomy, anorexia or bulimia, hysterectomy. HISTORY OF FRACTURE: None listed. MEDICATIONS: Multivitamin. MM/XR DEXA axial skeleton IMPRESSION: 1. DIAGNOSIS: Normal bone density based on the lowest T-score value of -1.0 in the femoral neck and total femur applying World Health Organization criteria. 2. 10-YEAR FRACTURE RISK PREDICTION, FRAX: According to the guidelines, FRAX calculation should only be performed on patients in the osteopenia bone density category. Therefore, FRAX was not performed on this patient. 3. Treatment Recommendations: NOF guidelines recommend consideration for treatment in postmenopausal women and men age 50 and older presenting with the following: -A hip or vertebral (clinical or morphometric) fracture. -T-score less than or equal to -2.5 at the femoral neck or spine after appropriate evaluation to exclude secondary causes. -Low bone mass at the hip or spine and a 10-year fracture probability by FRAX of greater than or equal to 3% for hip fracture or greater than or equal to 20% for major osteoporotic fracture based on the [place] adapted WHO algorithm. 4. Other Recommendations: All treatment decisions require clinical judgment and consideration of individual patient factors, including patient preferences, comorbidities, previous drug use, risk factors not captured in the FRAX model (e.g. frailty, falls, vitamin D deficiency, increased bone turnover, interval significant decline in bone density) and possible under or overestimation of fracture risk by FRAX. FUTURE SCAN RECOMMENDATION: People with diagnosed cases of osteoporosis or at high risk for fracture should have regular bone mineral density tests. For patients eligible for Medicare, routine testing is allowed once every 2 years. The testing frequency can be increased to one year for patients who have rapidly progressing disease, those who are receiving or discontinuing medical therapy to restore bone mass, or have additional risk factors. Electronically signed by: Gris Davis MD 12/20/2023 03:53 PM EDT
== END 2023-12-20 10:14 | disposition home or self-care (01) ==
LOC: HO.MAMMO 10:13
PROVIDERS: PCP Nurse Practitioner Family; Visit Provider Nurse Practitioner Family
DX: Z13.820 Encounter for screening for osteoporosis (principal); Z78.0 Asymptomatic menopausal state
CPT/HCPCS: 77080

== ENCOUNTER 2023-12-26 08:21 | Outpatient (REF) | payer OTHER, SELFPAY | END 2023-12-26 08:22 | disposition home or self-care (01) | LOC: HO.HOSX 08:21 | PROVIDERS: Visit Provider Physician Assistant | DX: M25.511 Pain in right shoulder (principal); M77.8 Other enthesopathies, not elsewhere classified | CPT/HCPCS: 20610; 73030; J1010; J2003 ==

== ENCOUNTER 2023-12-26 09:50 | Outpatient (AMB) | payer OTHER, SELFPAY ==
--- NOTE | 2023-12-26 10:13 | A.OFFVIS_ITS ---
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 Patient reports her pain came on suddenly and has been present for about a month. States her pain is deep inside the anterior aspect of shoulder and radiates down her arm. No numbness or tingling. No previous tx. 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 She denies any injury and she report her pain came on suddenly. She currently states she has pain deep inside the anterior aspect of her shoulder that radiates down her arm. She denies any numbness, tingling or pain with overhead reaching and lifting. She hurt s not had any treatment in the past. PFSH Medical History Constipation Generalized anxiety disorder Intestinal malabsorption Overweight Surgical History S/P excision of ganglion cyst S/P tonsillectomy S/P RIA (total abdominal hysterectomy) Hx of breast biopsy Hx laparoscopic cholecystectomy History of sleeve gastrectomy Family History Father No problems noted. Mother Stroke Son No problems noted. Daughter No problems noted. 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 Cognitive needs: No Hearing needs: No Vision needs: No Review of Systems Const All systems reviewed & are unremarkable except as noted in HPI and below Physical Exam Vital Signs: BMI result Body Mass Index 32.9 Const General: cooperative, healthy appearing, comfortable, no acute distress, well developed and alert Orientation/consciousness: patient oriented x3 HEENT Head: Yes normal to inspection, Yes normocephalic and Yes atraumatic Eyes General: appearance normal, both eyes and all related structures Resp Effort & Inspection: normal respiratory effort and able to speak in complete sentences Cardio Rate: regular rate Peripheral pulses: Peripheral pulses 2+ throughout GI Palpation (GI): Soft to palpation Skin Lesions: no lesions Rashes: no rashes Neuro General: patient oriented x3 Extrem Other: Right shoulder: Normal to inspection. Tenderness over the bicipital groove and along the deltoid region of the shoulder. Forward flexion to 175, external rotation to 90, internal rotation to S1. 5/5 RTC strength. Positive Jacobson, O?Santosh?s and cross body abduction. NVI. Office Procedures AMB Joint Injection/Aspiration Joint Injection/Aspiration Primary Site: right shoulder Prep: site was prepped using aseptic technique, ethochloride spray was applied and injection warnings given Injected: 80 mg of, DepoMedrol, with 8 mL of, 1% plain lidocaine and in the subcromial space Approach Used: posterolateral Procedure: The patient tolerated the procedure well and there was some relief with the local anesthesia Coding 19723 - Glenohumeral/Tronchanteric Bursa/Intraarticular Procedure code (CPT) selection complete Results Reviewed Results Reviewed: Xrays were obtained in the office today and personally reviewed by me of the right shoulder show type 2 acromion Assessment & Plan Assessment & Plan (1) Right shoulder tendonitis: Code(s): M77.8 - Other enthesopathies, not elsewhere classified Category: Medical Plan We discussed options today, which include steroid injection. The patient did consent to move forward with the right shoulder injection, which was tolerated well. I recommended rest, ice, and elevation and OTC anti-inflammatories as needed for discomfort. She was also referred to a course of physical therapy in the office today. If symptoms persist or worsens over the next 6-8 weeks, patient will contact the office, otherwise follow-up as needed. Orders: Orders XR shoulder RT min 2V Today M25.511 - Pain in right shoulder PT Evaluation and Treatment Today M77.8 - Other enthesopathies, not elsewhere classified Patient Instructions: Scribed for Ira Ferreira PA-C, by Cayetano Zapata medical insurance claims specialist, on 12/26/2023 at 10:00 AM EST.? I, Ira Ferreira PA-C, have personally reviewed and agree with the information entered by the scribe. Coding Level of Care Code New Pt Level 3 (48912) Complex EM visit Add On G2211 Diagnoses Right shoulder tendonitis M77.8 CPT Codes Coding - Joint 7: 01313 - Glenohumeral/Tronchanteric Bursa/Intraarticular ([id number])
[2023-12-26 10:16] VITALS: BMI 32.9
== END 2023-12-26 10:45 | disposition home or self-care (01) ==
LOC: HO.HOS 09:51
PROVIDERS: PCP Nurse Practitioner Family; Visit Provider Physician Assistant
DX: M77.8 Other enthesopathies, not elsewhere classified (principal)
CPT/HCPCS: 20610; 99203

== ENCOUNTER 2024-01-02 11:17 | Outpatient (AMB) | payer OTHER, SELFPAY ==
--- NOTE | 2024-01-02 11:22 | A.OFFVIS_ITS ---
Vital Signs 3 01/02/24 11:41 Height 5 ft 5 in Weight 193 lb 6 oz BMI 32.2 BP 146/87 H Blood Pressure Location Lt brachial Position Sitting Pulse 69 Intake Visit Reasons: Artifact versus soft tissue mass Intake Note: Patient is seen in office for evaluation of artifact vs soft tissue mass of the lower back. Pt c/o: onset 2 months, feels a lump in the lower back, sharp pain, denies discharge, redness, discoloration, no prior injury in the area us:11/26/23 Air Brake Rigger Required: No Accompanied by: Self / Same As Patient Allergies latex [Latex] Allergy (Severe, Verified 01/02/24 11:22) SWELLING,ITCHING codeine [CODEINE] Allergy (Intermediate, Verified 01/02/24 11:22) N/V levofloxacin [From Levaquin] Allergy (Mild, Verified 01/02/24 11:22) N/V Medication List - Last Reconciled 01/02/24 by Ammon Rey MD bupropion HCl XL 300 mg PO QAM buspirone 10 mg PO TID cetirizine 10 mg PO DAILY clonidine HCl 0.2 mg PO DAILY penciclovir 1% 1 appl topical ONCE thiamine HCl (vitamin B1) 100 mg PO DAILY 90 days valacyclovir 500 mg PO DAILY HPI Comments Details: 48-year-old female patient presenting with a palpable lump located in the left lower back. She 1st noted the lump approximately 2 months ago and feels the lump has gradually increased in size. She also reports discomfort when the lump is palpated or when lying on her left side. She denies any redness, discharge, or previous injury to this area. Workup with an ultrasound obtained 11/26/2023 reveals a subcutaneous soft tissue mass versus artifact corresponding to the palpable lesion. Patient presents today for discussion regarding management of this palpable lump. PFSH Medical History Constipation Generalized anxiety disorder Intestinal malabsorption Overweight Surgical History S/P excision of ganglion cyst S/P tonsillectomy S/P RIA (total abdominal hysterectomy) Hx of breast biopsy Hx laparoscopic cholecystectomy History of sleeve gastrectomy Family History Father No problems noted. Mother Stroke Son No problems noted. Daughter No problems noted. 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 Cognitive needs: No Hearing needs: No Vision needs: No Review of Systems Const All systems reviewed & are unremarkable except as noted in HPI and below Physical Exam Const General: no acute distress Nutritional Appearance: well nourished Orientation/consciousness: patient oriented x3 Limitations: no limitations Resp Effort & Inspection: normal respiratory effort, no audible wheezes, no cough and no respiratory distress GI Inspection: Yes normal to inspection Back/Spine/Pelvis Other: Palpable mass in the subcutaneous tissue left flank measuring approximately 3 cm by 2 cm, mobile within the subcutaneous tissue, some tenderness to palpation. No overlying skin changes. Back/spine/pelvis image: 2 1. Site of palpable subcutaneous mass left flank, consistent with lipoma. Skin General skin exam: no rashes or lesions noted Neuro General: patient oriented x3 Extrem General: Yes no clubbing, cyanosis or edema Assessment & Plan Assessment & Plan (1) Soft tissue lesion: Comment: [place] 11/2023 [facility] [place] ultrasound in the region of concern in the posterior inferior superficial left lower buttock/upper back using grayscale and color Doppler technique. FINDINGS: There is a questionable 3.4 x 2.2 x 1.2 cm isoechoic soft tissue fullness beneath the skin with internal flow on color Doppler interrogation. US/US chest IMPRESSION: Artifact versus soft tissue mass Code(s): M79.9 - Soft tissue disorder, unspecified Category: Medical Plan 48-year-old female patient presenting with a soft tissue mass in the left flank of 2 months' duration. Patient feels the lesion has increased in size and is causing some discomfort. On examination the patient does appear to have a 3 cm by 2 cm soft tissue mass consistent with a lipoma. I discussed the options including continued observation versus excision as a minor surgery under local anesthesia. She is comfortable with continued observation and will call should her symptoms worsen or if the lesion continues to increase in size. She should follow up as needed. Coding Level of Care Code New Pt Level 4 (09303) Diagnoses Soft tissue lesion M79.9
[2024-01-02 11:41] VITALS: BP 146/87; PULSE 69; BMI 32.2
== END 2024-01-02 11:47 | disposition home or self-care (01) ==
PROVIDERS: PCP Nurse Practitioner Family; Referring Provider Nurse Practitioner Family; Visit Provider Surgery
DX: M79.9 Soft tissue disorder, unspecified (principal)
CPT/HCPCS: 99204

== ENCOUNTER → 2024-01-02 11:17 | Outpatient (BNVA) | payer OTHER, SELFPAY | PROVIDERS: PCP Nurse Practitioner Family; Referring Provider Nurse Practitioner Family; Visit Provider Surgery ==

== ENCOUNTER 2024-02-17 10:05 | Outpatient (RCR) | payer OTHER, SELFPAY ==
--- NOTE | 2024-01-23 09:42 | MHC.PT.EP ---
[facility] [place] Office [place] Office [place] Office [address] Dona Nieves [address] [phone] F: [phone] F: [phone] F: [phone] F: [phone] Physical Therapy Plan of Care Date of Evaluation: 01/23/24 Date of Surgery: N/A Diagnosis: right shoulder tendinitis (RL) Assessment: pt is a 48 y/o female presenting to physical therapy w/ referring diagnosis of right shoulder tendinitis. ? labral involvement, (-) cervical involvement. Impairments include pain, decreased range of motion, decreased strength, impaired functional mobility, impaired postural awareness, and altered ambulation mechanics. pt is a good candidate for skilled PT due to age, potential remediation of impairments, typical disease/condition progression and prognosis, comorbidities, and motivation. pt would benefit from skilled PT intervention to provide a tailored strengthening and stretching exercise program, functional training, gait training, postural re-training, neuromuscular re-education, modalities as needed for pain, equipment safety demonstration. Frequency and Duration: The patient will be seen 2x/wk for 4 wks Short Term Goals: pt will be I w/ HEP to promote self-management of condition. pt will demo proper sitting posture w/ lumbar roll to promote neutral spine w/ seated ADLs. Surface Boss Goals: pt will improve R shoulder flexion by at least 15 degrees to promote ease in reaching. pt will report <3/10 R shoulder pain w/ functional IR to promote ease in upper body ADLs. Treatment Plan: Modalities to reduce pain, spasms and effusion. Manual therapy to restore motion and function. Therapeutic exercise to improve strength and flexibility. Neuromuscular re-education for posture and balance. Therapeutic activities to return to functional activities of daily living. Electronically signed by: Flores Sharma PT, DPT Please sign and return to therapist. Thank you for your referral.
--- NOTE | 2024-03-16 13:21 | MHC.PT.DC ---
[facility] [place] Office [place] Office [place] Office [address] Dona Nieves [address] [phone] F: [phone] F: [phone] F: [phone] F: [phone] Physical Therapy Discharge Report Diagnosis: right shoulder tendinitis (RL) Date of Surgery: N/A Date of Evaluation: 01/23/24 Date of Discharge: 03/16/24 Treatments to Date: 6 Cancellations to Date: 1 No Shows to Date: 2 Discharge Status: Recommend MD Follow-up Discharge Summary: pt arrived today stating she feels PT is not helping. She continues to have at least moderate to severe pain. Pain medication recently prescribed helps a little but does not reduce her pain to a tolerable level. It has been difficult to progress her PT here as any increase in resistance or reps causes increased pain. She has not noticed any significant improvement w/ ionto up to this point; however, I did educate her it usually takes at least 4 doses to notice a difference (today was #4). At this time, I am placing her on hold until her MRI to see if a change in her POC will be made. She is in agreement w/ this. Today, only STM and ionto done as she feels these interventions help a little. On hold for up to 30 days. If I do not hear from her before then she will be D/C'd. Electronically signed by: Flores Sharma PT, DPT Please sign and return to therapist. Thank you for your referral.
== END 2024-03-16 13:21 | disposition home or self-care (01) ==
LOC: HO.PT 10:05
PROVIDERS: PCP Nurse Practitioner Family; Visit Provider Physician Assistant
DX: M77.8 Other enthesopathies, not elsewhere classified (principal)
CPT/HCPCS: 97033; 97110; 97140; 97161

== ENCOUNTER → 2024-02-25 18:55 | Outpatient (BNV) | payer OTHER, SELFPAY | PROVIDERS: PCP Nurse Practitioner Family; Visit Provider Radiology Diagnostic Radiology | DX: M77.8 Other enthesopathies, not elsewhere classified (principal) | CPT/HCPCS: 73221 ==

== ENCOUNTER 2024-02-25 18:56 | Outpatient (REF) | payer OTHER, SELFPAY ==
--- NOTE | ~2024-02-25 | MR_ITS ---
EXAMINATION: MR SHOULDER CLINICAL INFORMATION: Right shoulder pain, excruciating pain since July of 2023, no focal no injury, episodic flares of pain. COMPARISON: No prior MRI. Plain films right shoulder 12/26/2023. TECHNIQUE: Multiplanar multisequence MR imaging of the right shoulder shoulder was done without IV contrast. Examination was performed on a 1.5 Sandra Siemens unit, utilizing standard sequences. FINDINGS: Rotator Cuff and Biceps Tendon: Supraspinatus: -There is a focal superior surface tear at the distal critical zone of the mid tendon, which extends interstitially to the approximate myotendinous junction level, spanning approximately 15 mm mediolateral, and 6 mm AP. This appears to extend to involve approximately 50% tendinous depth of the superior surface. There is associated tendinopathy of the distal tendon. There is likely a small amount of superior surface fraying. There is no full-thickness tear or tendinous retraction present. The muscle belly is intact and normal in signal. Infraspinatus: - Intact and normal in signal. The muscle belly is intact and normal in signal. Subscapularis: -Intact and normal in signal. The muscle belly is intact and normal in signal. Teres Minor: -Intact and normal in signal. Muscle belly is intact and normal in signal. Biceps Long Head: -Normally located within the bicipital groove and intact. The rotator interval aspect of the tendon is intact and normal in signal. The bicipital anchor appears intact. -Normal fluid within the tendon sheath. AC Joint and Acromiohumeral Arch: - Grossly normal-appearing without significant arthropathy or undersurface spurring. There is no outlet stenosis of the supraspinatus. -Lateral acromion is neutral without underlying spur. Glenohumeral Joint and Labrum: -No significant arthropathy evident. No osteochondral lesion. -There is mild thinning of the superior glenoid articular cartilage without full-thickness defect. -The glenoid cartilage is normal in appearance. -The labrum demonstrates a linear T2 signal focus in the superior labrum, however this follows the contour of the underlying bone and is most likely a sublabral foramen. Otherwise, no labral abnormality. Osseous Structures: -There is no bone marrow edema or fracture evident. There is normal alignment. Spino-glenoid Notch: -Normal. Quadrilateral Space: -Normal. Other: -Mild thickening of the inferior glenohumeral ligament is present, nonspecific in this setting. No additional joint capsular thickening, MGL or SGL thickening is noted. -There is small volume fluid in the subacromial/subdeltoid bursa suggesting mild bursitis. MR/MR shoulder RT wo con IMPRESSION: 1. Superior surface focal tear of the distal supraspinatus tendon in the critical zone, with interstitial extension (delamination type tearing) of the more proximal tendon to the myotendinous junction. This involves approximately 50% of the superior surface of the tendon within the critical zone. There is likely a small amount of superior surface fraying. There is associated tendinopathy. 2. The supraspinatus muscle is normal in signal and bulk. 3. Remainder of the rotator cuff tendons and muscles are normal. 4. Mild subacromial/subdeltoid bursitis. 5. Mild thickening of the inferior glenohumeral ligament, nonspecific. 6. Mild cartilage thinning of the superior humeral head articular cartilage. No full-thickness defect or osteochondral lesion. 7. Mild increased T2 signal in the superior labrum, following the contour of the underlying bone, suggestive of sublabral foramen. If there is high concern for a labral tear, MR arthrogram could be considered. Electronically signed by: Tevin Valenzuela MD 03/02/2024 10:21 AM DAO STUART
== END 2024-02-25 18:57 | disposition home or self-care (01) ==
LOC: HO.MRI 18:56
PROVIDERS: PCP Nurse Practitioner Family; Visit Provider Physician Assistant
DX: M77.8 Other enthesopathies, not elsewhere classified (principal)
CPT/HCPCS: 73221

== ENCOUNTER 2024-03-19 08:50 | Outpatient (AMB) | payer OTHER, SELFPAY ==
[2024-03-19 08:55] VITALS: BMI 32.1
--- NOTE | 2024-03-19 08:55 | A.OFFVIS_ITS ---
Vital Signs 03/19/24 08:55 Height 5 ft 5 in Weight 193 lb BMI 32.1 Intake Visit Reasons: ov- MRI review of right shoulder Intake Note: Charley is a 48 year old right hand dominant female who presents today for a follow up of her right shoulder. Patient reports that she has had ongoing pain since about November, the pain radiates down the arm. Denies numbness and tinglin g. She was last seen with Ira Ferreira who administered an injection on 12/26/23 , sent Celebrex and ordered an MRI. Patient rpeorts that she is now has a buldge at the anterior aspect of the right shoulder, this is primarily where she is feeling her pain. Allergies latex [Latex] Allergy (Severe, Verified 03/19/24 08:55) SWELLING,ITCHING codeine [CODEINE] Allergy (Intermediate, Verified 03/19/24 08:55) N/V levofloxacin [From Levaquin] Allergy (Mild, Verified 03/19/24 08:55) N/V HPI HPI ov- MRI review of right shoulder: Details: Charley is a 48 year old right hand dominant female who presents today for a follow up of her right shoulder. Patient reports that she has had ongoing pain since about November, the pain radiates down the arm. Denies numbness and tingling. She was last seen with Ira Ferreira who administered an injection on 12/26/23 , sent Celebrex and ordered an MRI. She describes difficulty it with sleeping and difficulty with raising her head to her mouth or to brush her hair. She feels like this has been persisting now for over 6 months and she is having a difficult time getting through her day. [facility] Medical History Constipation Generalized anxiety disorder Intestinal malabsorption Overweight Surgical History S/P excision of ganglion cyst S/P tonsillectomy S/P RIA (total abdominal hysterectomy) Hx of breast biopsy Hx laparoscopic cholecystectomy History of sleeve gastrectomy Family History Father No problems noted. Mother Stroke Son No problems noted. Daughter No problems noted. 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 IMPRESSION: 1. Superior surface focal tear of the distal supraspinatus tendon in the critical zone, with interstitial extension (delamination type tearing) of the more proximal tendon to the myotendinous junction. This involves approximately 50% of the superior surface of the tendon within the critical zone. There is likely a small amount of superior surface fraying. There is associated tendinopathy. 2. The supraspinatus muscle is normal in signal and bulk. 3. Remainder of the rotator cuff tendons and muscles are normal. 4. Mild subacromial/subdeltoid bursitis. 5. Mild thickening of the inferior glenohumeral ligament, nonspecific. 6. Mild cartilage thinning of the superior humeral head articular cartilage. No full-thickness defect or osteochondral lesion. Assessment & Plan Assessment & Plan (1) Rotator cuff tear, right: Code(s): M75.101 - Unspecified rotator cuff tear or rupture of right shoulder, not specified as traumatic Category: Medical Plan: This is a 48-year-old with a high-grade partial-thickness tear that has not responded to conservative care. She has weakness on exam and her MRI clearly demonstrates a high-grade tear. I recommend shoulder arthroscopy with rotator cuff repair. I discussed with her the surgery in detail as well as the risks and benefits and alternatives including, but not limited to, stiffness, infection, delayed recovery, need for further surgery, re-injury as well as medical complications associated with surgery. She expressed understanding and we will proceed forward accordingly. Coding Level of Care Code Est Pt Level 4 (02642) Diagnoses Rotator cuff tear, right M75.101
--- OUTSIDE RECORDS SUMMARY | 2024-03-19 11:40 | XMS_ITS | Patient Health Record ---
Author Organization [facility] Address [address] [place] [address] Care Team Providers Care Bird Tender Name Role Phone Andreas MANAGER OUTPATIENT, Lennox Primary Care Provider Unavail able Eduarda Snell Unavailable [phone] Allergies Allergen (clinical drug ingredient) Drug/Non Drug Allergy documented on EMR Reaction Allergy Type Onset Date Status Levaquin Unknown Drug Allergy Active Reason For Referral No Information Medications Medication SIG (Take, Route, Frequency, Duration) Notes Start Date End Date Status Probiotic Active Work Note . . . Patient can retu rn to work on Apr 09, 2023 03/29/2023 Active Multivitamin Active traMADol HCl 50 MG 1 tablet as needed Orally Every 6 hours as needed for 7 days 10/18/2021 Not-Taking Physical Therapy . . . 2-3x/week for 3- 4 weeks 10/19/2021 Not-Taking BuSpar Not-Taking Medrol kimmie 4mg as directed orally a s directed for 6 days 01/25/2023 Not-Taking Voltaren 1 % as directed Externally Not-Taking Amoxicillin-Pot Clavulanate 875 875-125 MG one tab Orally every 12 hrs for 5 days 01/25/2023 Not-Taking Cetirizine HCl 10 MG 1 tablet Orally Onc e a day for 30 day(s) Active HYDROcodone-Acetaminophe n 5-325 MG 1-2 tablet as needed Orally every 4-6 hrs for 10 days 01/29/2023 Not-Taking cloNIDine HCl Active Physical Therapy . . Pt had significant scar tissue and contracture after previous bunion surgery, second surgery done 01/17/23-ROM 1st MPJ LEFT with gait training 2-3x/week Active Work Note . . . 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 Zofran Not-Taking Ondansetron HCl 4 MG 1-2 tablet Orally O nce a day as needed for nausea for 10 days 09/29/2021 Not-Taking Vicodin Not-Taking Gabapentin 300 MG 1 capsule Orally Twi ce a day for 30 day(s) 09/28/2021 Not-Taking Immunizations Vaccine Route Administration Date Status Comme nts COVID-19 Pfizer BioNTech Vaccine Unknown 11/03/2020 Administered 1st 04/01/20 2nd 05/02/20 Social History Tobacco Use: Social History Observation Description Date Details (start date - stop date) Never Smoker NA - NA Tobacco Use/Smoking Question Answer Notes Are you a: nonsmoker Additional Findings: Tobacco Non-User Current no n-smoker Alcohol Screen Question Answer Notes Did you have a drink containing alcohol in the p ast year? No Points 0 Interpretation Negative Tobacco use other than smoking: Question Answer Notes Are you an other tobacco user? No Problems Problem Type SNOMED Code ICD Code Onset Dates Problem Status W/U Status Risk Notes Problem Acquired hallux valgus (43023200) Hallux valgus (acquired), left foot (M20.12) Active confirmed Problem [id number] Contracture, lef t foot (M24.575) Active confirmed Problem Acquired hallux valgus (72038158) Acquired hallux interphalangeus of left foot (M20.12) Active confirmed Vital Signs Height 5ft 5in in 04/12/2023 Weight 190 lbs 04/12/2023 BMI 31.61 kg/m2 04/12/2023 Encounters Encounter Location Date Provider Diagnosis [facility] [address] [address] 04/12/2023 Eduarda Snell Bunion of great toe of left foot M21.612 ; Acquired hallux interphalangeus of left foot M20.12 and Contracture, left foot M24.[address] [facility] [address] 03/29/2023 Eduarda Snell Assessments Encounter Date Diagnosis (ICD Code) Assessment Notes Treatment Notes Treatment Clinical Notes Section Notes 04/12/2023 Bunion of great toe of left foot (ICD-10 - M21.612) 04/12/2023 Contracture, left foot (ICD-10 - M24.575) 04/12/2023 Acquired hallux interphalangeus of left foot (ICD-10 - M20.12) Plan Of Treatment Pending Test Test Name Order Date X ray : Foot, left 3V 08/08/2020 X ray : Foot, left 3V 09/13/2021 X ray : Foot, left 3V 09/29/2021 X ray : Foot, left 3V 10/03/2021 X ray : Foot, left 3V 10/10/2021 X ray : Foot, left 3V 10/24/2021 X ray : Foot, left 3V 11/10/2021 X ray : Foot, left 3V 11/24/2021 X ray : Foot, left 3V 12/08/2021 X ray : Foot, left 3V 06/15/2022 X ray : Foot, left 3V 12/11/2022 X ray : Foot, left 3V 01/18/2023 X ray : Foot, left 3V 01/25/2023 X ray : Foot, left 3V 02/01/2023 X ray : Foot, left 3V 02/08/2023 X ray : Foot, left 3V 03/01/2023 X ray : Foot, left 3V 04/12/2023 Insurance Providers Payer Name Payer Address Payer Phone Subscriber Number Group Number Insured Name Patient Relationship to Insured Coverage Start Date Coverage End Date [facility] [address] [facility] [place], [place] [address] [id number] Charley Aguilar Self - patient is the insured Medical (General) History Medical History History ICD Code Gall bladder problems Headaches/Migraines Hiatal hernia Chicken pox Surgical History Surgery Date(Month/Year) gall bladder 1993 tonsillectomy 1996 hysterectomy 2019 VSG 2020 Antony bunionectomy left foot 09/27/2021 Vasquez Osteotomy L, Mod David L
--- OUTSIDE RECORDS SUMMARY | 2024-03-19 11:41 | XMS_ITS ---
Author Organization [facility] Address [address] [place] [address] Care Team Providers Care Manufacturing Maintenance Manager Name Role Phone Andreas ALAN, Lennox Primary Care Provider Unavail able Eduarda Snell Unavailable [phone] Allergies Allergen (clinical drug ingredient) Drug/Non Drug Allergy documented on EMR Reaction Allergy Type Onset Date Status Levaquin Unknown Drug Allergy Active REASON FOR VISIT Post-op Medications Medication SIG (Take, Route, Frequency, Duration) Notes Start Date End Date Status traMADol HCl 50 MG 1 tablet as needed Orally Every 6 hours as needed for 7 days 10/18/2021 Not-Taking Physical Therapy . . . 2-3x/week for 3- 4 weeks 10/19/2021 Not-Taking Work Note . . . 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 . . Patient can retu rn to work on Apr 09, 2023 03/29/2023 Active BuSpar Not-Taking Physical Therapy . . Pt had significant scar tissue and contracture after previous bunion surgery, second surgery done 01/17/23-ROM 1st MPJ LEFT with gait training 2-3x/week Active Zofran Not-Taking Vicodin Not-Taking Medrol kimmie 4mg as directed orally a s directed for 6 days 01/25/2023 Not-Taking Amoxicillin-Pot Clavulanate 875 875-125 MG one tab Orally every 12 hrs for 5 days 01/25/2023 Not-Taking HYDROcodone-Acetaminophe n 5-325 MG 1-2 tablet as needed Orally every 4-6 hrs for 10 days 01/29/2023 Not-Taking Social History Tobacco Use: Social History Observation [...] Are you an other tobacco user? No Vital Signs Height 5ft 5in in 04/12/2023 Weight 190 lbs 04/12/2023 BMI 31.61 kg/m2 04/12/2023 Encounters Encounter Location Date Provider Diagnosis [facility] [address] [place] [address] 04/12/2023 Eduarda Snell Bunion of great toe of left foot M21.612 ; Acquired hallux interphalangeus of left foot M20.12 and Contracture, left foot M24.575 Assessments Encounter Date Diagnosis (ICD Code) Assessment Notes Treatment Notes Treatment Clinical Notes Section Notes 04/12/2023 Bunion of great toe of left foot (ICD-10 - M21.612) 04/12/2023 Acquired hallux interphalangeus of left foot (ICD-10 - M20.12) 04/12/2023 Contracture, left foot (ICD-10 - M24.575) Plan Of Treatment Pending Test Test Name Order Date X ray : Foot, left 3V 04/12/2023 Next Appt Details Follow Up: prn, Reason: Progress Notes * Charley AGUILAR RDOB:[birth year] (47 yo F)Acc No.[id number]:04/12/2023 Progress Notes Patient:?Charley Aguilar R Provider:?Eduarda Snell DPM :1975???Age:47 Y???Sex:Female D ate:04/12/2023 Address:[address] [place] [address] [place], [id number] Pcp:Lennox Johns NP Subjective: * Chief Complaints: * ???Post-op * HPI: ???Post-op:?The patient presents for post-op of?Left Mod David , Bunionectomy and Vasquez Osteotomy?.?Date of Surgery?:?01/16/2023 ?Current symptoms include?Pt denies fever, chills, nausea, calf pain, SOB, or increased anxiety.? Pt presents WB left with sneaker. Pt relates minimal pain and increased flexibility at joint with PT. Pt states her last PT appt is this and will go back to work on 04/15/23. Pt states she is ready to go back to work. * ROS:?General/Constitutional:?Nausea?denies.?Vomiting?denies.?Hunger Thirst?denies.?Loss appetite?denies.?Chills?denies.?Fatigue?denies.?Fever?denies.?Night Sweats?denies.?Unexplained weight loss?denies.?Unexplained weight gain?denies.?HEENTM:?Dentures?denies.?Dizziness?denies.?Glasses/contacts?denies.?Retinopathy?de nies.?Blurred/double vision?denies.?TMJ?denies.?Discharge/drainage?denies.?Implants?denies.?Sore throat?denies.?Dental implants?denies.?Hard of hearing ?denies.?Difficulty chewing/swallowing/speaking?denies.?Nose bleeds?denies.?Sore mouth?denies.?Respiratory:?On Oxygen?denies.?Pneumonia/pleurisy?denies.?Bronchitis?denies.?Emphysema?denies.?C oughing?denies.?Cough blood?denies.?Shortness of breath?denies.?Wheezing?denies.?Cardiovascular:?Pacemaker?denies.?MVP?denies.?WPW?denies.?CHF?denies.?Heart attack?denies.?Septal defect?denies.?Rapid beat?denies.?Chest pain ?denies.?Atrial Fib.?denies.?Murmur/Palpitations?denies.?Gastrointestinal:?Hemorrhoids?denies.?Stomach/Abdominal pain?denies.?Dark blood stool?denies.?Irritable bowel ?denies.?Constipation?denies.?Diarrhea?denies.?Hematology:?Swelling?denies.?Clots?denies.?Varicose Veins?denies.?Bruising?denies.?Bleeding problem?denies.?Genitourinary:?Blood urine?denies.?Frequent/Painfu/urination/bladder control?denies.?Kidney stones?denies.?Infection (UTI)?denies.?Nephropathy?denies.?sex trans dis (STD)?denies.?Prostate?denies.?Musculoskeletal:?Hammertoes?denies.?Bunions?admits.?Back Pain?denies.?Muscle Cramps/ Resting?denies.?Muscle cramps / walking?denies.?Generalized aches and pains?denies.?Weakness?denies.?Integ.:?Shaw?admits.?Scars?denies.?Corns/calluses?denies.?Ingrown nails?denies.?Painful nails?denies.?Open Sores?denies.?Rashes?denies.?Neurologic:?Difficulty sleeping?denies.?Brain disorder?denies.?Numbness?denies.?Balance trouble?denies.?Confusion?denies.?Fainting/blackouts?denies.?Tingling?denies.?Tr emors?denies.? * Medical History:? * Surgical History:?gall bladd er 1993tonsillectomy 1996hysterectomy 2019VSG 2020[place] bunionectomy left foot 2Akin Osteotomy L, Mod David L * Hospitalization/Major Diagno stic Procedure:?Denies Past Hospitalization * Family History:?Mother: dece ased, diagnosed with Other specified conditions influencing health status.?Father: alive.?Maternal Grand Mother: diagnosed with Unspecified essential hypertension.?Maternal Grand Father: diagnosed with Other malignant neoplasm of unspecified site.?Maternal aunt: diagnosed with Diabetic - NIDDM.? * Social History:?Tobacco Use:?Tobacco Use/Smoking?Are you a:?nonsmoker ?Additional Findings: Tobacco Non-User?Current non-smoker ?Tobacco use other than smoking?Are you an other tobacco user??No ???Drugs/Alcohol:?Drugs?Have you used drugs other than those for medical reasons in the past 12 months??No ?Alcohol Screen?Did you have a drink containing alcohol in the past year??No ?Points?0 ?Interpretation?Negative ???Miscellaneous:?Caffeine: yes, frequency: , 1-2 cups per day. ?Children: yes, 2. ?Exercise: yes, walking, working out at gym. ?Marital status: single. 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 * Medications:?TakingCetirizin e HCl 10 MG Tablet 1 tablet Orally Once a daycloNIDine HCl Probiotic Multivitamin Work Note . . . . 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 . . Pt had significant scar tissue and contracture after previous bunion surgery, second surgery done 01/17/23-ROM 1st MPJ LEFT with gait training 2-3x/weekWork Note . . . . Patient can return to work on Apr 09, 2023Taking Cetirizine HCl 10 MG Tablet 1 tablet Orally Once a dayTaking cloNIDine HCl Taking Probiotic Taking Multivitamin Taking Work Note . . . . 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 . . Pt had significant scar tissue and contracture after previous bunion surgery, second surgery done 01/17/23-ROM 1st MPJ LEFT with gait training 2-3x/weekTaking Work Note . . . . Patient can return to work on Apr 09, 2023Not-Taking/PRNZofran Vicodin BuSpar Voltaren 1 % Gel as directed Externally traMADol HCl 50 MG Tablet 1 tablet as needed Orally Every 6 hours as neededPhysical Therapy . . . . 2-3x/weekOndansetron HCl 4 MG Tablet Disintegrating 1-2 tablet Orally Once a day as needed for nauseaGabapentin 300 MG Capsule 1 capsule Orally Twice a dayMedrol kimmie 4mg Tablet Therapy Pack as directed orally as directedAmoxicillin-Pot Clavulanate 875 875-125 MG Tablet one tab Orally every 12 hrsHYDROcodone-Acetaminophen 5-325 MG Tablet 1-2 tablet as needed Orally every 4-6 hrsMedication List reviewed and reconciled with the patientNot- Taking/PRN Zofran Not-Taking/PRN Vicodin Not-Taking/PRN BuSpar Not-Taking/PRN Voltaren 1 % Gel as directed Externally Not-Taking/PRN traMADol HCl 50 MG Tablet 1 tablet as needed Orally Every 6 hours as neededNot-Taking/PRN Physical Therapy . . . . 2-3x/weekNot-Taking/PRN Ondansetron HCl 4 MG Tablet Disintegrating 1-2 tablet Orally Once a day as needed for nauseaNot-Taking/PRN Gabapentin 300 MG Capsule 1 capsule Orally Twice a dayNot-Taking/PRN Medrol kimmie 4mg Tablet Therapy Pack as directed orally as directedNot-Taking/PRN Amoxicillin-Pot Clavulanate 875 875-125 MG Tablet one tab Orally every 12 hrsNot-Taking/PRN HYDROcodone-Acetaminophen 5-325 MG Tablet 1-2 tablet as needed Orally every 4-6 hrsMedication List reviewed and reconciled with the patient * Allergies:?Levaquinyes[Aller gies Verified] Objective: * Vitals:?Ht: 5ft 5in, Wt:190, BMI:31.61, Shoe size:9. * Examination: ???Dermatologic: ?SURGICAL SITE?Incision edges are well aligned and adhered, CFT intact , No signs or symptoms consistent with infection ,? No Pain on palpation/ no ecchymosis/ no edema, (-), erythema/hematoma/cellulitis.?Orthopedic: ?BUNION:?slight medial deviation of hallux LEFT; ROM is without pain about?50 degrees 1st MPJ LEFT; decreased ROM IPJ left hallux without pain.?X-Rays - IMAGING REPORT: ?Clinical Indication(s):?Evaluate Biomechanical Deformity.?Views:?3 views of Foot , LEFT , AP , LAT , LO.?Findings:?normal bone and soft tissue density consistent for patients age and sex , increase in soft tissue contour and density at the symptomatic site , radiolucent soft tissue gas absent.?HAV:?Post-op XR shows that there is good clean bone resection without any evidence of sharp edges or bony spicules slight increase in medial deviation of hallux on metatarsal head from initial PO, however improved from pre-op?, internal fixation appears intact and stable, no dorsal contracture of hallux with WB.?Fracture:?Negative fractures identified.? Assessment: * Assessment: 1.?Bunion of great toe of le ft foot - M21.612?2.?Contracture, left foot - M24.575?3.?Acquired hallux interphalangeus of left foot - M20.12 (Primary)? Plan: * Treatment: * Imaging:? * ?Imaging: X ray : Foot, left 3V * Procedure Codes:?26624 X-RAY EXAM OF LEFT FOOT 3V, Modifiers: 26 , LT * Preventive Medicine:? ??Counseling:?Post-op:?I reviewed with the patient the usual surgical post-op course. The patient is to call with any questions/complications, and will follow-up as needed, , continue with accom firm-soled shoe for stability and support, gradually increase activity to tolerance, can continue PT exercises at home as well as deep tissue massage to help with scar tissue, The Pt. was counseled on the x-rays, continued treatment options, and the importance of following all homecare instructions.? * Follow Up:?prn * Images: * Sign off status: Completed true * Provider:?Eduarda Snell DPM Date:? Generated for Tatiana puckett/Misti/Damián on:?03/19/2024 11:40 AM EST History and Physical Notes * HPI (History of Present Illness) Category Sub-Category Detail Notes Category Not es Post-op The patient presents for post-op of Left Mod David , Bunionectomy and Vasquez Osteotomy Pt presents WB left with sneaker. Pt relates minimal pain and increased flexibility at joint with PT. Pt states her last PT appt is this and will go back to work on 04/15/23. Pt states she is ready to go back to work. Current symptoms include Pt denies fever , chills, nausea, calf pain, SOB, or increased anxiety Date of Surgery :: 01/16/2023 Examination Category Sub-Category Detail Notes Category Not es Dermatologic SURGICAL SITE Incision edges a re well aligned and adhered, CFT intact , No signs or symptoms consistent with infection , No Pain on palpation/ no ecchymosis/ no edema, (-), erythema/hematoma/cellulitis Orthopedic BUNION: slight medial de viation of hallux LEFT; ROM is without pain about 50 degrees 1st MPJ LEFT; decreased ROM IPJ left hallux without pain X-Rays - IMAGING REPORT Findings: normal b one and soft tissue density consistent for patients age and sex , increase in soft tissue contour and density at the symptomatic site , radiolucent soft tissue gas absent Fracture: Negative fractures i dentified HAV: Post-op XR shows macho t there is good clean bone resection without any evidence of sharp edges or bony spicules slight increase in medial deviation of hallux on metatarsal head from initial PO, however improved from pre-op , internal fixation appears intact and stable, no dorsal contracture of hallux with WB Views: 3 views of Foot , LE FT , AP , LAT , LO Clinical Indication(s): Evaluate Biomech anical Deformity
--- OUTSIDE RECORDS SUMMARY | 2024-03-19 11:41 | XMS_ITS | Encounter Summary ---
[facility] Organization [facility] Address [address] [place] [address] Care Team Providers Care Utilities Equipment Repairer Name Role Phone Doroteo Feliz Primary Care Provider Alannah bob Encounter Details Date Type Department Care Team Description 11/10/2015 Release of Information Medical Records [address] [place] [id number] Abstract, Provider Social History Tobacco Use Types Packs/Day Years Used Date Smoking Tobacco: Never Alcohol Use Standard Drinks/Week Comments No 0 (1 standard drink = 0.6 oz pur e alcohol) Sex Assigned at Date Recorded Not on file documented as of this encounter Plan of Treatment Not on file documented as of this encounter Visit Diagnoses Not on filedocumented in this encounter Care Teams Utilities Equipment Repairer Relationship Specialty Start Date End Date Doroteo Feliz PCP - General Internal Medicine 11/01/15 documented as of this encounter
--- OUTSIDE RECORDS SUMMARY | 2024-03-19 11:41 | XMS_ITS | Encounter Summary ---
Author Organization [facility] Address [address] [place] [address] Care Team Providers Care Wastewater Manager Name Role Phone Doroteo Feliz Primary Care Provider Unavailabl e Reason for Referral * Non BILL (Urgent) - Authorized/Booked Specialty Diagnoses / Procedures Referred By Contac t Referred To Contact BENCH WORKER HELPER Diagnoses Breast feeding status of mother Procedures REFERRAL TO BREAST FEEDING MEDICINE Wanda Coon MD [address] [place] [id number] Breast Feeding/[address] [place] [address] Referral ID Status Reason Start Date Expiration Date V isits Requested Visits Authorized TODAY/TOMORRO W Authorized/ Booked 11/02/2015 11/01/2016 1 1 Encounter Details Date Type Department Care Team Description 11/02/2015 Orders Only Pediatrics - [address] [address] Wanda Coon MD Breast feeding status of mother (Primary Dx) Social History Tobacco Use Types Packs/Day Years Used Date Smoking Tobacco: Never Assessed Sex Assigned at Date Recorded Not on file documented as of this encounter Plan of Treatment Not on file documented as of this encounter Visit Diagnoses Diagnosis Breast feeding status of mother- Primary care and examination of lactating mother documented in this encounter Care Teams Wastewater Manager Relationship Specialty Start Date End Date Doroteo Feliz PCP - General Internal Medicine 11/01/15 documented as of this encounter
--- OUTSIDE RECORDS SUMMARY | 2024-03-19 11:41 | XMS_ITS ---
Author Organization [facility] [place] Address [address] [place] [address] Care Team Providers Care Rack Puller Name Role Phone Andreas ALAN, [place] Primary Care Provider Unavail able Eduarda Snell Unavailable [phone] Allergies Allergen (clinical drug ingredient) Drug/Non Drug Allergy documented on EMR Reaction Allergy Type Onset Date Status Levaquin Unknown Drug Allergy Active REASON FOR VISIT PCP - 12/2022, Post-op Medications Medication SIG (Take, Route, Frequency, Duration) Notes Start Date End Date Status Zofran Active Vicodin Active BuSpar Active Voltaren 1 % as directed Externally Active Physical Therapy . . Pt had significant scar tissue and contracture after previous bunion surgery, second surgery done 01/17/23-ROM 1st MPJ LEFT with gait training 2-3x/week Active Ondansetron HCl 4 MG 1-2 tablet Orally O nce a day as needed for nausea for 10 days 09/29/2021 Active Gabapentin 300 MG 1 capsule Orally Twi ce a day for 30 day(s) 09/28/2021 Active Medrol kimmie 4mg as directed orally a s directed for 6 days 01/25/2023 Active Amoxicillin-Pot Clavulanate 875 875-125 MG one tab Orally every 12 hrs for 5 days 01/25/2023 Active HYDROcodone-Acetaminophen 5-325 MG 1-2 tablet as needed Orally every 4-6 hrs for 10 days 01/29/2023 Active traMADol HCl 50 MG 1 tablet as needed O rally Every 6 hours as needed for 7 days 10/18/2021 Active Physical Therapy . . . 2-3x/week for 3- 4 weeks 10/19/2021 Active Work Note . . . 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 ; Pain in left toe(s) M79.675 ; Contracture, left foot M24.575 and Contusion of left foot, subsequent encounter S90.32XD Assessments Encounter Date Diagnosis (ICD Code) Assessment Notes Treatment Notes Treatment Clinical Notes Section Notes 03/01/2023 Bunion of great toe of left foot (ICD-10 - M21.612) 03/01/2023 Acquired hallux interphalangeus of left foot (ICD-10 - M20.12) 03/01/2023 Pain in left toe(s) (ICD-10 - M79.675) 03/01/2023 Contracture, left foot (ICD-10 - M24.575) 03/01/2023 Contusion of left foot, subsequent encounter (ICD-10 - S90.32XD) Plan Of Treatment Pending Test Test Name Order Date X ray : Foot, left 3V 03/01/2023 Next Appt Details Follow Up: 6 Weeks, Reason: Progress Notes * Charley AGUILAR RDOB:[birth year] (47 yo F)Acc No.[id number]:03/01/2023 Progress Notes Patient:?Charley Aguilar Provider:?Eduarda Snell DPM :1975???Age:47 Y???Sex:Female D ate:03/01/2023 Address:[address] [place] [id number] Pcp:Lennox Johns NP Subjective: * Chief Complaints: * ???PCP - ost-op * HPI: ???Post-op:?The patient presents for post-op of?Left Mod David , Bunionectomy and Vasquez Osteotomy?.?Date of Surgery?:?01/16/2023 ?Current symptoms include?Pt denies fever, chills, nausea, calf pain, SOB, or increased anxiety.? Pt presents WB left withcast boot. Pt states pain has significantly improved and she has had 1 session of PT so far. * ROS:?General/Constitutional:?Nausea?denies, denies, denies, denies.?Vomiting?denies, denies, denies, denies.?Hunger Thirst?denies, denies, denies, denies.?Loss appetite?denies, denies, denies, denies.?Chills?denies, denies, denies, denies.?Fatigue?denies, denies, denies, denies.?Fever?denies, denies, denies, denies.?Night Sweats?denies, denies, denies, denies.?Unexplained weight loss?denies, denies, denies, denies.?Unexplained weight gain?denies, denies, denies, denies.?HEENTM:?Dentures?denies, denies, denies, denies.?Dizziness?denies, denies, denies, denies.?Glasses/contacts?denies, denies, denies, denies.?Retinopathy?denies, denies, denies, denies.?Blurred/double vision?denies, denies, denies, denies.?TMJ?denies, denies, denies, denies.?Discharge/drainage?denies, denies, denies, denies.?Implants?denies, denies, denies, denies.?Sore throat?denies, denies, denies, denies.?Dental implants?denies, denies, denies, denies.?Hard of hearing ?denies, denies, denies, denies.?Difficulty chewing/swallowing/speaking?denies, denies, denies, denies.?Nose bleeds?denies, denies, denies, denies.?Sore mouth?denies, denies, denies, denies.?Respiratory:?On Oxygen?denies, denies, denies, denies.?Pneumonia/pleurisy?denies, denies, denies, denies.?Bronchitis?denies, denies, denies, denies.?Emphysema?denies, denies, denies, denies.?Coughing?denies, denies, denies, denies. Cough blood?denies, denies, denies, denies.?Shortness of breath?denies, denies, denies, denies.?Wheezing?denies, denies, denies, denies.?Cardiovascular:?Pacemaker?denies, denies, denies, denies.?MVP?denies, denies, denies, denies.?WPW?denies, denies, denies, denies.?CHF?denies, denies, denies, denies.?Heart attack?denies, denies, denies, denies.?Septal defect?denies, denies, denies, denies.?Rapid beat?denies, denies, denies, denies.?Chest pain ?denies, denies, denies, denies.?Atrial Fib.?denies, denies, denies, denies.?Murmur/Palpitations?denies, denies, denies, denies.?Gastrointestinal:?Hemorrhoids?denies, denies, denies, denies.?Stomach/Abdominal pain?denies, denies, denies, denies.?Dark blood stool?denies, denies, denies, denies.?Irritable bowel ?denies, denies, denies, denies.?Constipation?denies, denies, denies, denies.?Diarrhea?denies, denies, denies, denies.?Hematology:?Swelling?denies, denies, denies, denies.?Clots?denies, denies, denies, denies.?Varicose Veins?denies, denies, denies, denies.?Bruising?denies, denies, denies, denies.?Bleeding problem?denies, denies, denies, denies.?Genitourinary:?Blood urine?denies, denies, denies, denies.?Frequent/Painfu/urination/bladder control?denies, denies, denies, denies.?Kidney stones?denies, denies, denies, denies.?Infection (UTI)?denies, denies, denies, denies.?Nephropathy denies, denies, denies, denies.?sex trans dis (STD)?denies, denies, denies, denies.?Prostate?denies, denies, denies, denies.?Musculoskeletal:?Hammertoes?denies, denies, denies, denies.?Bunions?admits, admits, admits, admits.?Back Pain?denies, denies, denies, denies.?Muscle Cramps/ Resting?denies, denies, denies, denies.?Muscle cramps / walking?denies, denies, denies, denies.?Generalized aches and pains?denies, denies, denies, denies.?Weakness?denies, denies, denies, denies.?Integ.:?Shaw?admits, admits, admits, admits.?Scars?denies, denies, denies, denies.?Corns/calluses?denies, denies, denies, denies.?Ingrown nails?denies, denies, denies, denies.?Painful nails?denies, denies, denies, denies. Open Sores?denies, denies, denies, denies.?Rashes?denies, denies, denies, denies.?Neurologic:?Difficulty sleeping?denies, denies, denies, denies.?Brain disorder?denies, denies, denies, denies.?Numbness?denies, denies, denies, denies.?Balance trouble?denies, denies, denies, denies.?Confusion?denies, denies, denies, denies.?Fainting/blackouts?denies, denies, denies, denies.?Tingling?denies, denies, denies, denies.?Tremors?denies, denies, denies, denies.? * Medical History:? * Surgical History:?gall bladd [...] past year??No ?Points?0 ?Interpretation?Negative ???Miscellaneous:?Caffeine: yes, frequency: unknown. ?Children: yes, 2. ?Exercise: yes, walking, working out at gym. ?Marital status: single. 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 * Medications:?TakingZofran Vi codin BuSpar Voltaren 1 % Gel as directed Externally Cetirizine HCl 10 MG Tablet 1 tablet Orally Once a daycloNIDine HCl Probiotic Multivitamin traMADol HCl 50 MG Tablet 1 tablet as needed Orally Every 6 hours as neededPhysical Therapy . . . . 2-3x/weekWork Note . . . . Patient to return to work general supervisor without restrictionsOndansetron HCl 4 MG Tablet Disintegrating 1-2 tablet Orally Once a day as needed for nauseaGabapentin 300 MG Capsule 1 capsule Orally Twice a dayMedrol kimmie 4mg Tablet Therapy Pack as directed orally as directedAmoxicillin-Pot Clavulanate 875 875-125 MG Tablet one tab Orally every 12 hrsHYDROcodone-Acetaminophen 5-325 MG Tablet 1-2 tablet as needed Orally every 4-6 hrsPhysical Therapy . . . Pt had significant scar tissue and contracture after previous bunion surgery, second surgery done 01/17/23-ROM 1st MPJ LEFT with gait training 2-3x/weekTaking Zofran Taking Vicodin Taking BuSpar Taking Voltaren 1 % Gel as directed Externally Taking Cetirizine HCl 10 MG Tablet 1 tablet Orally Once a dayTaking cloNIDine HCl Taking Probiotic Taking Multivitamin Taking traMADol HCl 50 MG Tablet 1 tablet as needed Orally Every 6 hours as neededTaking Physical Therapy . . . . 2-3x/weekTaking Work Note . . . . 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 . . Pt had significant scar tissue and contracture after previous bunion surgery, second surgery done 01/17/23-ROM 1st MPJ LEFT with gait training 2-3x/week * Allergies:?Levaquinyes[Aller gies Verified] Objective: * Vitals:?Ht: 5ft 5in, Wt:194, BMI:32.28, Shoe size:9. * Examination: ???Dermatologic: ?SURGICAL SITE?Incision edges are well aligned and adhered, CFT intact , No signs or symptoms consistent with infection , (+), LESS?Pain on palpation/ minimal?ecchymosis/ minimal?edema, (-), erythema/hematoma/cellulitis.?Orthopedic: ?BUNION:?slight medial deviation of hallux LEFT since removing K-wire, ROM is without pain about 35 degrees.?X-Rays - IMAGING REPORT: ?Clinical Indication(s):?Evaluate Biomechanical Deformity.?Views:?3 [...] evidence of sharp edges or bony spicules , there is still mostly rectus?alignment of the Hallux, slight increase in medial deviation of hallux on metatarsal head , internal fixation appears intact and stable, no dorsal contracture of hallux with WB.?Fracture:?Negative fractures identified.? Assessment: * Assessment: 1.?Bunion of great toe of le ft foot - M21.612?2.?Pain in left toe(s) - M79.675?3.?Acquired hallux interphalangeus of left foot - M20.12 (Primary)?4.?Contracture, left foot - M24.575?5.?Contusion of left foot, subsequent encounter - S90.32XD, Improved? Plan: * Treatment: * Imaging:? * ?Imaging: X ray : Foot, left 3V * Procedure Codes:?55566 X-RAY EXAM OF LEFT FOOT 3V, Modifiers: 26 , LT * Preventive Medicine:? ??Counseling:?Post-op:?I reviewed with the patient the usual surgical post-op course. The patient is to call with any questions/complications, and will follow-up as scheduled, cast boot for now, but can start to return to accom firm-soled shoe for stability and support with limited ambulation gradually increase activity to tolerance, , perform ROM (3-4 times a day; 20-25 reps each) exercises at the foot joint and ankle, The Pt. was counseled on the x-rays, continued treatment options, and the importance of following all homecare instructions, discussed and reviewed signs and symptoms of DVT, pt to monitor and call with any concerns, Pt to continue to ice and elevate foot to help with post op swelling and pain., discussed the need to continue Physical Therapy and the importance it will play in the pts recovery.? * Follow Up:?6 Weeks * Images: * Sign off status: Completed true * Provider:?Eduarda Snell DPM Date:?01/2024 Generated for Tatiana puckett/Misti/Damián on:?03/19/2024 11:40 AM EST History and Physical Notes * HPI (History of Present Illness) Category Sub-Category Detail Notes Category Not es Post-op The patient presents for post-op of Left Mod David , Bunionectomy and Vasquez Osteotomy Pt presents WB left withcast boot. Pt states pain has significantly improved and she has had 1 session of PT so far Current symptoms include Pt denies fever , chills, nausea, calf pain, SOB, or increased anxiety Date of Surgery :: 01/16/2023 Examination Category Sub-Category Detail Notes Category Not es Dermatologic SURGICAL SITE Incision edges a re well aligned and adhered, CFT intact , No signs or symptoms consistent with infection , (+), LESS Pain on palpation/ minimal ecchymosis/ minimal edema, (-), erythema/hematoma/cellulitis Orthopedic BUNION: slight medial de viation of hallux LEFT since removing K-wire, ROM is without pain about 35 degrees X-Rays - IMAGING REPORT Findings: normal b one and soft tissue density consistent for patients age and sex , increase in soft tissue contour and density at the symptomatic site , radiolucent soft tissue gas absent Fracture: Negative fractures i dentified HAV: Post-op XR shows macho t there is good clean bone resection without any evidence of sharp edges or bony spicules , there is still mostly rectus alignment of the Hallux, slight increase in medial deviation of hallux on metatarsal head , internal fixation appears intact and stable, no dorsal contracture of hallux with WB Views: 3 views of Foot , LE FT , AP , LAT , LO Clinical Indication(s): Evaluate Biomech anical Deformity
== END 2024-03-19 09:39 | disposition home or self-care (01) ==
PROVIDERS: PCP Nurse Practitioner Family; Visit Provider Orthopaedic Surgery
DX: M75.101 Unspecified rotator cuff tear or rupture of right shoulder, not specified as traumatic (principal)
CPT/HCPCS: 99214

== ENCOUNTER 2024-04-01 12:47 | Outpatient (AMB) | payer OTHER, SELFPAY ==
--- NOTE | 2024-04-01 12:49 | A.OFFPC_ITS ---
Vital Signs 04/01/24 12:55 Height 5 ft 5 in Weight 201 lb BMI 33.4 BP 133/68 Blood Pressure Location Rt brachial Position Sitting Respiration 16 Pulse 73 Pulse Source Pulse Oximeter Temp 98.7 F Temp Source Oral Pulse Oximetry (%) 99 Oxygen Delivery Method Room Air Intake Visit Reasons: noter/blurry eyes Intake Note: patient here c/o she went sledding and woke up in the ambulance. she is c/o headache and blurry vision. Cold Type Composing Machine Operator Required: No Is last menstrual period known: No Post menopausal: No Patient : No Allergies latex [Latex] Allergy (Severe, Verified 04/01/24 13:13) SWELLING,ITCHING codeine [CODEINE] Allergy (Intermediate, Verified 04/01/24 13:13) N/V levofloxacin [From Levaquin] Allergy (Mild, Verified 04/01/24 13:13) N/V Medication List - Last Reconciled 04/01/24 by BENTON Petersen- bupropion HCl XL 300 mg PO QAM buspirone 10 mg PO TID celecoxib 200 mg PO BID cetirizine 10 mg PO DAILY clonidine HCl 0.2 mg PO DAILY gabapentin 100 mg PO BID penciclovir 1% 1 appl topical ONCE thiamine HCl (vitamin B1) 100 mg PO DAILY 90 days tramadol 50 mg PO BEDTIME 14 days valacyclovir 500 mg PO DAILY Tobacco use date assessed: 04/01/24 Dental Screening Dental Screen Date: 04/01/24 Did you have a dental visit in the last 12 months?: Yes Did you have a dental problem in the last 6 months where you did not have access to dental care?: No Was dental information given to patient?: Patient has dentist HPI HPI Comments History of Present Illness Details The patient is a 48-year-old female presenting with injuries sustained from a recent sledding accident. The incident occurred when the patient, along with her daughter, was sledding using a new tube. During the activity, the sled turned unexpectedly, leading her to collide with a baseball ghada fence, and resulting in her unconsciousness. The patient has no recollection of the collision, awakening in an ambulance. She reports her daughter performed chest compressions, concerned for her condition. Following the accident, the patient was taken to the hospital, where imaging indicated a fractured sternum, ribs two through six on the right side, and a broken right shoulder, for which she was awaiting rotator cuff surgery. There is the involvement of post-concussive symptoms such as blurred vision and ongoing headaches. Headache and blurred vision started today. The patient describes se justice pain in the chest area, exacerbated by movement, making sleep difficult. Musculoskeletal discomfort is noted in the neck and back regions. There is facial swelling on the left side, suggesting potential muscular strain post- collision. Prior to this injury, she received a cortisone injection for the rotator cuff but found no prolonged relief, Celebrex was prescribed. For this accident, Tramadol 50mg is prescribed for pain management, it is not holding, she has self increased to 100 mg twice daily for significant relief. Gabapentin has also been prescribed, taking 100mg BID. She cannot tolerate oxycodone due to nausea and is exploring further assistance. Will be seeing [facility] tomorrow and Trauma surgeon Saturday Arm in sling Out of work Denies fever, chills, sob, loss of vision, loss of use of extremity. Exam Awake alert NAD Ecchymosis Left cheek/jaw line PERRLA, EOMI Neck FROM Muscle tension over L sternoclenoidmastoid R arm neurovasc intact; LROM given pain R arm in sling Pain w palp over anterior/posterior shoulder/clavicle No pain over sternum w/ palp LS CTAB c/o sternal pain w deep breath; no crepitus; no obvious rib deformity RRR FLEMING x 4 Pain w palp over transverse low back worse on the L side over SI joint ? deformity Results per pt report, as i do not have the [facility] ED Summary from 03/28/24, requested but n/a - Imaging indicated a fractured sternum and ribs 2-6 on the right. - CT imaging of the face was performed; extensive bruising of the facial region observed. - No prior imaging or direct reference t o findings on MRI for rotator cuff p athology provided. Discussion Notes During the consultation, I discussed the likely diagnosis of post-concussive syndrome and coordinated the patient?s care for managing multiple fractures and musculoskeletal injuries. The risks and benefits of current medications, such as Celebrex and Tramadol, were reviewed, alongside alternatives like muscle relaxants and increased Gabapentin dosing. The necessity of further imaging to investigate possible pelvis displacement was acknowledged, and its plan was explained. The patient was informed about the expected duration and variability of post-concussive symptoms, emphasizing the avoidance of overstimulation. Careful medication administration was advised to prevent sedative effects. The patient was assured of continued follow-up and was directed to proceed with orthopedic and trauma specialists, with a note for absence provided until further evaluation. Assessment and Plan 48-year-old female with a history of tra umatic shoulder incident presenting with post-sledding accident injuries, including multiple fractures and concussive symptoms. The primary concern is the management of post-trauma multisystem injuries, particularly musculoskeletal and neurological sequelae. Concussion is likely, given loss of consciousness. The shoulder injury is complicated by pre- existing rotator cuff pathology. Bruising on the face and neck indicates pote ntial muscular strain, possibly impacting recovery times. 1. Right Shoulder Fracture Expedite referral for evaluation considering rotator cuff condition for potential surgical intervention. [facility] 2. Fractured Ribs Right Ribs 2-6 Prescribe analgesics to manage pain resulting from injured ribs, supportive therapy to prevent exacerbation. 3. Sternum Fracture Conservative management with pain relief. Emphasize on limited activity and care to prevent strain. 4. Musculoskeletal Pain Utilize prescribed analgesics and muscle relaxants for effective pain management , integrate physical support devices as necessary. 5. Unspecified rotator cuff tear or rupt ure of unspecified shoulder, not specified as traumatic M75.100 Continue scheduled surgical treatment plans with orthopedic consultation impending. 6. Postconcussional syndrome F07.8 1 Encourage minimization of stimulating activities to aid recovery. Monitor symptoms like blurred vision and headaches. Reassess if symptoms evolve; continue pharmacologic management with advised precautions. 7. Blurred Vision Further evaluation following trauma to consider additional imaging if symptoms persist or worsen. 8. Swollen Face And Neck Advise the continuance of anti-inflammatory medication, observe for variations or escalation in symptoms. Xrays today: Normal pelvis and hips. Normal sacrum and coccyx. 1. No acute findings lumbar spine. 2. Mild disc space narrowing L5-S1 and m ild facet degeneration at L4-5. Patient Instructions - Tramadol 100mg po BID prn, Pedro Luis 100mg p o TI prn D, sparing use of flexeril 10mg prn you ask him in hi sent request actually been working on her turn 1st ovary node and then a consultation consultation follow up work that works rate think y ou I appreciate it advised not to mix w tramadol and gabapentin Take celebrex 200mg po BID - Avoid activities that exacerbate sympt oms to aid concussion recovery. - Take all medications as directed, spec ifically adhering to dosing schedules. - Follow-up with allergy and immunology specialist a nd trauma surgeon as arranged. - Utilize ice pack and sling for comfort and support. - Avoid dzkc-uex-uihzcoo lidocaine use i f prices are high, consult pharmacy for alternatives. - Report any changes such as increased p ain, shortness of breath, new symptoms, or side effects immediately. - Follow-up care should be prompt; maint ain open lines for updates or issues that arise. Out of work through May 18 Advised for Short term disability Patient was informed and verbally consented to the use of an ambient scribe for clinic note documentation during this visit. Total time spent caring for the patient today was 60 minutes. This includes time spent before the visit reviewing the chart, time spent during the visit, and time spent after the visit on documentation, reviewing laboratory results, diagnostic imaging, medications, performing a medically necessary evaluation, counseling on diagnoses, care coordination, ordering appropriate tests, ordering appropriate medications, review of tests performed by other providers, reporting test results with the patient, communication with other healthcare providers. At 16:50 be [facility] discharge was reviewed: CT of the head and brain without contrast shows no subarachnoid hemorrhage, no subdural epidural collection probable small arachnoid cyst versus prominent cisterna magna in the posterior fossa focal subcutaneous soft tissue swelling fat stranding in the left cheek posttraumatic, apparent cortical break along bilateral distal nasal bones without associated overlying soft tissue swelling related to an old nasal trauma impression raised small subcutaneous soft tissue contusion in the left cheek with no underlying acute maxillofacial fracture and no evidence of acute abnormality in the head or cervical spine CT of the chest was also completed showing subcutaneous contusion in the right posterior shoulder upper abdomen did show incidental 2 mm stone in the right kidney and punctate stone in the left interpolar region, nondisplaced comminuted fracture of the right glenoid with extension to the glenohumeral joint surface, mildly displaced fractures in the right anterior 2nd through 6th ribs near the costochondral junction, nondisplaced fracture of the manubrium sternum, no pneumothorax PFSH Medical History Constipation Generalized anxiety disorder Intestinal malabsorption Overweight Surgical History S/P excision of ganglion cyst S/P tonsillectomy S/P RIA (total abdominal hysterectomy) Hx of breast biopsy Hx laparoscopic cholecystectomy History of sleeve gastrectomy Family History Father No problems noted. Mother Stroke Son No problems noted. Daughter No problems noted. 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 Breezy Garces, Yelitza Chaudhry, Jonathan Matthew and colleagues, with an educational ingris from [employer]. Physical exam (Primary Care) Vital Signs: Last Vital Signs Temp 98.7 F 04/01/24 12:55 Pulse 73 04/01/24 12:55 Resp 16 04/01/24 12:55 BP 133/68 04/01/24 12:55 Pulse Ox 99 04/01/24 12:55 Oxygen Delivery Method Room Air 04/01/24 12:55 BMI result Body Mass Index 33.4 Tobacco/Smoking Status: Tobacco use Status Tobacco use date assessed 04/01/24 04/01/24 12:58 Patient Tobacco Use Status Never used Tobacco 04/01/24 12:52 e-Cigarette/Vaping Use Never Used 04/01/24 12:52 Thrive Assessment: Date of Thrive Assessment Date Thrive assessed 11/26/23 04/01/24 12:52 Coding Level of Care Code Est Pt Level 5 (96804) Complex EM visit Add On G2211 Diagnoses Sledding accident Y93.23 Closed fracture of right shoulder, initial encounter S42.91XA Encounter type: initial encounter Fracture type: closed Closed fracture of multiple ribs of right side, initial encounter S22.41XA Encounter type: initial encounter Fracture type: closed Laterality: right Closed fracture of manubrium, initial encounter S22.21XA Encounter type: initial encounter Sternal location: manubrium Fracture type: closed Neck pain M54.2 Acute bilateral low back pain without sciatica M54.50 Chronicity: acute Back pain laterality: bilateral Sciatica presence: without sciatica Tear of right rotator cuff, unspecified tear extent, unspecified whether traumatic M75.101 Rotator cuff tear extent: unspecified tear extent Rotator cuff tear trauma status: unspecified whether traumatic Pelvic pain R10.2 Assessment & Plan Assessment & Plan (1) Sledding accident: Code(s): Y93.23 - Activity, snow (alpine) (downhill) skiing, snowboarding, sledding, tobogganing and snow tubing Category: Medical (2) Shoulder fracture, right: Code(s): S42.91XA - Fracture of right shoulder girdle, part unspecified, initial encounter for closed fracture Category: Medical Qualifiers: Encounter type: initial encounter Fracture type: closed Qualified Code(s): S42.91XA - Fracture of right shoulder girdle, part unspecified, initial encounter for closed fracture (3) Ribs, multiple fractures: Code(s): S22.49XA - Multiple fractures of ribs, unspecified side, initial encounter for closed fracture Category: Medical Qualifiers: Encounter type: initial encounter Fracture type: closed Laterality: right Qualified Code(s): S22.41XA - Multiple fractures of ribs, right side, initial encounter for closed fracture (4) Sternum fx: Code(s): S22.20XA - Unspecified fracture of sternum, initial encounter for closed fracture Category: Medical Qualifiers: Encounter type: initial encounter Sternal location: manubrium Fracture type: closed Qualified Code(s): S22.21XA - Fracture of manubrium, initial encounter for closed fracture (5) Neck pain: Code(s): M54.2 - Cervicalgia Category: Medical (6) Low back pain: Code(s): M54.50 - Low back pain, unspecified Category: Medical Qualifiers: Chronicity: acute Back pain laterality: bilateral Sciatica presence: without sciatica Qualified Code(s): M54.50 - Low back pain, unspecified (7) Rotator cuff tear, right: Code(s): M75.101 - Unspecified rotator cuff tear or rupture of right shoulder, not specified as traumatic Category: Medical Qualifiers: Rotator cuff tear extent: unspecified tear extent Rotator cuff tear trauma status: unspecified whether traumatic Qualified Code(s): M75.101 - Unspecified rotator cuff tear or rupture of right shoulder, not specified as traumatic (8) Pelvic pain: Code(s): R10.2 - Pelvic and perineal pain Category: Medical Plan . Orders: Orders XR lumbar spine 4V min Today M54.50 - Low back pain, unspecified, R10.2 - Pelvic and perineal pain, Y93.23 - Activity, snow (alpine) (downhill) skiing, snowboarding, sledding, tobogganing and snow tubing XR sacrum coccyx min 2V Today M54.50 - Low back pain, unspecified, R10.2 - Pelvic and perineal pain, Y93.23 - Activity, snow (alpine) (downhill) skiing, snowboarding, sledding, tobogganing and snow tubing XR hip BI w PEL1V Today M54.50 - Low back pain, unspecified, R10.2 - Pelvic and perineal pain, Y93.23 - Activity, snow (alpine) (downhill) skiing, snowboarding, sledding, tobogganing and snow tubing Medications: New tramadol 100 mg PO BID PRN 60 tabs 0RF pain celecoxib 200 mg PO BID 180 caps 0RF gabapentin 100 mg PO TID 90 caps 0RF lidocaine 4% on for 12 off for 12 1 patch topical DAILY PRN 30 ea 0RF pain cyclobenzaprine 10 mg PO Q8H PRN 15 tabs 0RF muscle spasm 5 days Refilled buspirone 10 mg PO TID 90 tabs 2RF Discontinued tramadol Discontinued Reason: Doctor's Order 50 mg PO BEDTIME 14 days 14 tabs 0RF
[2024-04-01 12:55] VITALS: BP 133/68; PULSE 73; RESP 16; TEMP 37.1; O2SAT 99; BMI 33.4
--- OUTSIDE RECORDS SUMMARY | 2024-04-01 14:09 | XMS_ITS ---
Author Organization [facility] Address [address] [place] [address] Care Team Providers Care Robotic Welding Operator Name Role Phone Andreas INDUSTRIAL SERVICE TECHNICIAN, [facility] Primary Care Provider Unavail able Eduarda Snell Unavailable [phone] REASON FOR VISIT Work Note Medications Medication SIG (Take, Route, Frequency, Duration) Notes Start Date End Date Status Work Note . . . Patient can retu rn to work on Apr 09, 2023 03/29/2023 Active Encounters Encounter Location Date Provider Diagnosis [facility] [address] [place] [address] 03/29/2023 Eduarda Snell Plan Of Treatment Medication Medication Name Sig Start Date Stop Date Notes Work Note . . . Patient can retu rn to work on Apr 09, 2023 03/29/2023 Progress Notes * Charley AGUILAR RDOB:[birth year] (47 yo F)Acc No.[id number]:03/29/2023 Patient:?Charley Aguilar :1975???Age:47 Y???Sex:Female Address:[address] [place] [address] * Refills? Start Work Note ., ., ., ., Patient can return to work on Apr 09, 2023 * true * Date:? Generated for Tatiana puckett/Misti/eTransmitting on:?04/01/2024 02:08 PM EST
--- OUTSIDE RECORDS SUMMARY | 2024-04-01 14:09 | XMS_ITS ---
Author Organization [facility] Address [address] [place] [address] Care Team Providers Care Processing Assistant Name Role Phone Andreas ALAN, [place] Primary Care Provider Unavail able Eduarda Snell Unavailable [phone] Allergies Allergen (clinical drug ingredient) Drug/Non Drug [...] . 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 ?Marital status: single. 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 * Medications:?TakingCetirizin e HCl 10 MG Tablet 1 tablet Orally Once a daycloNIDine HCl Probiotic Multivitamin Work Note . . . . Patient to return to work mold filler plastic dolls without restrictionsPhysical Therapy . . . Pt [...] . . Patient to return to work mold filler plastic dolls without restrictionsTaking Physical Therapy . . . [...] ray : Foot, left 3V * Procedure Codes:?48337 X-RAY EXAM OF LEFT FOOT 3V, Modifiers: [...] Snell DPM Date:? Generated for Tatiana puckett/Misti/Damián on:?04/01/2024 02:09 PM EST History and Physical Notes * HPI [...]
--- OUTSIDE RECORDS SUMMARY | 2024-04-01 14:09 | XMS_ITS ---
Author Organization [facility] Address [address] [place] [address] Care Team Providers Care Osha Inspector Name Role Phone Andreas ALAN, [place] Primary Care Provider Unavail able Eduarda Snell Unavailable [phone] Allergies Allergen (clinical drug ingredient) Drug/Non Drug [...] . 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 ?Marital status: single. 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 * Medications:?TakingZofran Vi codin BuSpar Voltaren 1 % Gel as directed Externally Cetirizine HCl 10 MG Tablet 1 tablet Orally Once a daycloNIDine HCl Probiotic Multivitamin traMADol HCl 50 MG Tablet 1 tablet as needed Orally Every 6 hours as neededPhysical Therapy . . . . 2-3x/weekWork Note . . . . Patient to return to work maritime officer without restrictionsOndansetron HCl 4 MG Tablet Disintegrating [...] . . Patient to return to work maritime officer without restrictionsTaking Ondansetron HCl 4 MG Tablet [...] ray : Foot, left 3V * Procedure Codes:?67223 X-RAY EXAM OF LEFT FOOT 3V, Modifiers: [...] Snell DPM Date:?01/2024 Generated for Tatiana puckett/Misti/Damián on:?04/01/2024 02:09 PM [...]
--- OUTSIDE RECORDS SUMMARY | 2024-04-01 14:09 | XMS_ITS | Patient Health Record ---
Author Organization [facility] Address [address] [place] [address] Care Team Providers Care Cold Strip Roller Name Role Phone Andreas MUSIC COMPOSITION TEACHER, [place] Primary Care Provider Unavail able Eduarda Snell Unavailable [phone] Allergies Allergen (clinical drug ingredient) Drug/Non Drug [...] . 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 Zofran Not-Taking Ondansetron HCl [...] Status Risk Notes Problem Acquired hallux valgus (98040318) Hallux valgus (acquired), left foot (M20.12) Active confirmed Problem [id number] Contracture, lef t foot (M24.575) Active confirmed Problem Acquired hallux valgus (27876996) Acquired hallux interphalangeus of left foot (M20.12) Active confirmed Vital Signs Height 5ft 5in in 04/12/2023 Weight 190 lbs 04/12/2023 BMI 31.61 kg/m2 04/12/2023 Encounters Encounter Location Date Provider Diagnosis [facility] [place] [address] [place] [address] 04/12/2023 Eduarda Snell Bunion of great toe [...] Insured Coverage Start Date Coverage End Date [facility] [address] [place] [address] [id number] Charley Aguilar Self - patient is the insured Medical (General) History Medical History History ICD Code Gall bladder problems Headaches/Migraines Hiatal hernia Chicken pox Surgical History Surgery Date(Month/Year) gall bladder 1993 tonsillectomy 1996 hysterectomy 2018 [facility] 2019 Antony bunionectomy left foot 09/27/2021 Vasquez Osteotomy L, Mod David L
== END 2024-04-01 15:52 | disposition home or self-care (01) ==
PROVIDERS: PCP Nurse Practitioner Family; Visit Provider Nurse Practitioner Family
DX: S42.91XA Fracture of right shoulder girdle, part unspecified, initial encounter for closed fracture (principal); S22.41XA Multiple fractures of ribs, right side, initial encounter for closed fracture; S22.21XA Fracture of manubrium, initial encounter for closed fracture; Y93.23 Activity, snow (alpine) (downhill) skiing, snowboarding, sledding, tobogganing and snow tubing; M54.2 Cervicalgia; M54.50 Low back pain, unspecified; M75.101 Unspecified rotator cuff tear or rupture of right shoulder, not specified as traumatic; R10.2 Pelvic and perineal pain

== ENCOUNTER 2024-04-01 12:47 | Outpatient (REF) | payer OTHER, SELFPAY ==
--- NOTE | ~2024-04-01 | XR_ITS ---
EXAMINATION: XR BILATERAL HIPS WITH AP PELVIS XR SACRUM/COCCYX CLINICAL INFORMATION: Y93.23 - Activity, snow (alpine) (downhill) skiing, snowboarding, sleddi...; Pain. COMPARISON: None available. TECHNIQUE: AP view of the pelvis and single views of each hip were obtained. FINDINGS: No fracture, dislocation, or suspicious bone lesion. Normal mineralization. Hip joint spaces appear normal the hips are intact without arthritis. SI joints appear normal. The sacrum appears intact. Coccyx appears unremarkable. Should be noted coccyx views are limited due to extensive anatomical variability in this region. There is a solitary surgical clip in the central pelvis. Soft tissues otherwise normal. XR/XR hip BI w PEL1V IMPRESSION: Normal pelvis and hips. Normal sacrum and coccyx. Electronically signed by: Tevin Valenzuela MD 04/01/2024 02:46 PM DAO
--- NOTE | ~2024-04-01 | XR_ITS ---
EXAMINATION: XR LUMBOSACRAL SPINE CLINICAL INFORMATION: Y93.23 - Activity, snow (alpine) (downhill) skiing, snowboarding, sleddi...; Pain COMPARISON: None available. TECHNIQUE: AP and lateral views of the lumbosacral spine. FINDINGS: Minimal levoconvex scoliosis. Normal lordosis. No fracture, subluxation, compression deformity, or suspicious bone lesion. Alignment is normal. Disc spaces demonstrate mild narrowing at L5-S1. Discs are otherwise normal. Facets are normally aligned. There is mild degenerative facet changes at L4-5. Soft tissues demonstrate cholecystectomy clips, and surgical clips along the region of the stomach greater curvature. XR/XR lumbar spine 4V min IMPRESSION: 1. No acute findings lumbar spine. 2. Mild disc space narrowing L5-S1 and mild facet degeneration at L4-5. Electronically signed by: Tevin Valenzuela MD 04/01/2024 02:49 PM DAO
--- NOTE | ~2024-04-01 | XR_ITS ---
EXAMINATION: XR BILATERAL HIPS WITH AP PELVIS XR SACRUM/COCCYX CLINICAL INFORMATION: Y93.23 - Activity, snow (alpine) (downhill) skiing, snowboarding, sleddi...; Pain. COMPARISON: None available. TECHNIQUE: AP view of the pelvis and single views of each hip were obtained. FINDINGS: No fracture, dislocation, or suspicious bone lesion. Normal mineralization. Hip joint spaces appear normal the hips are intact without arthritis. SI joints appear normal. The sacrum appears intact. Coccyx appears unremarkable. Should be noted coccyx views are limited due to extensive anatomical variability in this region. There is a solitary surgical clip in the central pelvis. Soft tissues otherwise normal. XR/XR sacrum coccyx min 2V IMPRESSION: Normal pelvis and hips. Normal sacrum and coccyx. Electronically signed by: Tevin Valenzuela MD 04/01/2024 02:46 PM DAO STUART
--- OUTSIDE RECORDS SUMMARY | 2024-04-01 15:30 | XMS_ITS | Encounter Summary ---
[facility] [address] [place] [address] Care Team Providers Care Vasc Tech Name Role Phone Doroteo Feliz Primary Care Provider Alannah bob Encounter Details Date Type Department Care Team Description 11/10/2015 Release of Information Medical Records [address] [place] [id number] Abstract, Provider Social History Tobacco Use Types [...] on filedocumented in this encounter Care Teams Vasc Tech Relationship Specialty Start Date End Date Doroteo Feliz PCP - General Internal Medicine 11/01/15 documented as of this encounter
--- OUTSIDE RECORDS SUMMARY | 2024-04-01 15:30 | XMS_ITS | Encounter Summary ---
Author Organization [facility] Address [address] [place] [address] Care Team Providers Care Clay Artist Name Role Phone Doroteo Feliz Primary Care Provider Unavailabl e Reason for Referral * Non BILL (Urgent) - Authorized/Booked Specialty Diagnoses / Procedures Referred By Contac t Referred To Contact PROFESSOR OF EDUCATION Diagnoses Breast feeding status of mother Procedures REFERRAL TO BREAST FEEDING MEDICINE Wanda Coon MD [address] [place] [id number] Breast Feeding/[address] [place] [address] Referral ID Status Reason Start Date Expiration Date V isits Requested Visits Authorized TODAY/TOMORRO W Authorized/ Booked 11/02/2015 11/01/2016 1 1 Encounter Details Date Type Department Care Team Description 11/02/2015 Orders Only Pediatrics - [address] [address] Wanda Coon MD Breast feeding status of [...] mother documented in this encounter Care Teams Clay Artist Relationship Specialty Start Date End Date Doroteo Feliz PCP - General Internal Medicine 11/01/15 documented as of this encounter
== END 2024-04-01 12:48 | disposition home or self-care (01) ==
LOC: HO.HMGCX 12:47
PROVIDERS: PCP Nurse Practitioner Family; Visit Provider Nurse Practitioner Family
DX: M54.50 Low back pain, unspecified (principal); R10.2 Pelvic and perineal pain
CPT/HCPCS: 72110; 72220; 73521

== ENCOUNTER → 2024-04-01 14:11 | Outpatient (BNV) | payer OTHER, SELFPAY | PROVIDERS: PCP Nurse Practitioner Family; Visit Provider Radiology Diagnostic Radiology | DX: M54.50 Low back pain, unspecified (principal); M25.551 Pain in right hip; M25.552 Pain in left hip; M53.3 Sacrococcygeal disorders, not elsewhere classified | CPT/HCPCS: 72110; 72220; 73521 ==

== ENCOUNTER 2024-04-06 10:32 | Outpatient (AMB) | payer OTHER, SELFPAY ==
--- OUTSIDE RECORDS SUMMARY | 2024-04-06 10:34 | XMS_ITS | Patient Health Record ---
Author Organization [facility] Address [address] [place] [address] Care Team Providers Care Roll Finisher Name Role Phone Andreas SMALL BUSINESS REPRESENTATIVE, [place] Primary Care Provider Unavail able Eduarda Snell Unavailable [phone] Allergies Allergen (clinical drug ingredient) Drug/Non Drug [...] . 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) Active confirmed Problem Acquired hallux valgus (53111135) Acquired hallux interphalangeus of left foot (M20.12) Active confirmed Vital Signs Height 5ft 5in in 04/12/2023 Weight 190 lbs 04/12/2023 BMI 31.61 kg/m2 04/12/2023 Encounters Encounter Location Date Provider Diagnosis [facility] [place] [address] [place] [address] 04/12/2023 Eduarda Snell Bunion of great toe [...] Insured Coverage Start Date Coverage End Date [facility] [address] [facility] [place] [address] [id number] Charley Aguilar Self - patient is the insured Medical (General) History Medical History History ICD Code Gall bladder problems Headaches/Migraines Hiatal hernia Chicken pox Surgical History Surgery Date(Month/Year) gall bladder 1993 tonsillectomy 1996 hysterectomy 2018 VSG 2019 Antony bunionectomy left foot 09/27/2021 Vasquez Osteotomy L, Mod David L
--- OUTSIDE RECORDS SUMMARY | 2024-04-06 10:35 | XMS_ITS ---
Author Organization [facility] Address [address] [place] [address] Care Team Providers Care Assistant Prosecuting Attorney Name Role Phone Andreas ALAN, [place] Primary Care Provider Unavail able Eduarda Snell Unavailable [phone] Allergies Allergen (clinical drug ingredient) Drug/Non Drug [...] . 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 ?Marital status: single. 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 * Medications:?TakingZofran Vi codin BuSpar Voltaren 1 % Gel as directed Externally Cetirizine HCl 10 MG Tablet 1 tablet Orally Once a daycloNIDine HCl Probiotic Multivitamin traMADol HCl 50 MG Tablet 1 tablet as needed Orally Every 6 hours as neededPhysical Therapy . . . . 2-3x/weekWork Note . . . . Patient to return to work real time analyst without restrictionsOndansetron HCl 4 MG Tablet Disintegrating [...] . . Patient to return to work real time analyst without restrictionsTaking Ondansetron HCl 4 MG Tablet [...] ray : Foot, left 3V * Procedure Codes:?28818 X-RAY EXAM OF LEFT FOOT 3V, Modifiers: [...] Snell DPM Date:?01/2024 Generated for Tatiana puckett/Misti/Damián on:?04/06/2024 10:34 AM EST History and Physical Notes * [...]
--- OUTSIDE RECORDS SUMMARY | 2024-04-06 10:35 | XMS_ITS ---
Author Organization [facility] Address [address] [place] [address] Care Team Providers Care Hose Wrapper Name Role Phone Andreas ALAN, [place] Primary Care Provider Unavail able Eduarda Snell Unavailable [phone] Allergies Allergen (clinical drug ingredient) Drug/Non Drug [...] . 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 ?Marital status: single. 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 * Medications:?TakingCetirizin e HCl 10 MG Tablet 1 tablet Orally Once a daycloNIDine HCl Probiotic Multivitamin Work Note . . . . Patient to return to work timekeeping supervisor without restrictionsPhysical Therapy . . . Pt [...] . . Patient to return to work timekeeping supervisor without restrictionsTaking Physical Therapy . . . [...] ray : Foot, left 3V * Procedure Codes:?67030 X-RAY EXAM OF LEFT FOOT 3V, Modifiers: [...] Snell DPM Date:? Generated for Tatiana puckett/Misti/Damián on:?04/06/2024 10:34 AM [...]
--- NOTE | 2024-04-06 10:54 | A.OFFPC_ITS ---
Intake Visit Reasons: feeling dizzy. vomiting and head ache Intake Note: sledding accident 03/28/24, concussion fx sternum fx right ribs 2-6, fx Right shoulder Bitumen Plant Operator Required: No Is last menstrual period known: No Post menopausal: No Patient : No Allergies latex [Latex] Allergy (Severe, Verified 04/06/24 10:56) SWELLING,ITCHING codeine [CODEINE] Allergy (Intermediate, Verified 04/06/24 10:56) N/V levofloxacin [From Levaquin] Allergy (Mild, Verified 04/06/24 10:56) N/V Medication List - Last Reconciled 04/06/24 by Ammon Cortez RN bupropion HCl XL 300 mg PO QAM buspirone 10 mg PO TID celecoxib 200 mg PO BID cetirizine 10 mg PO DAILY clonidine HCl 0.2 mg PO DAILY cyclobenzaprine 10 mg PO Q8H PRN 5 days gabapentin 100 mg PO TID penciclovir 1% 1 appl topical ONCE thiamine HCl (vitamin B1) 100 mg PO DAILY 90 days tramadol 100 mg (2 x 50 mg) PO BID PRN 14 days valacyclovir 500 mg PO DAILY Tobacco use date assessed: 04/01/24 Dental Screening Dental Screen Date: 02/24/24 Did you have a dental visit in the last 12 months?: Yes Did you have a dental problem in the last 6 months where you did not have access to dental care?: No Was dental information given to patient?: Patient has dentist HPI HPI Comments History of Present Illness Details The patient is a 48-year-old female presenting with injuries sustained from a recent sledding accident. She was evaluated after ER visit in the clinic by her PCP on 04/01 The incident occurred when the patient, along with her daughter, was sledding using a new tube. During the activity, the sled turned unexpectedly, leading her to collide with a baseball ghada fence, and resulting in her unconsciousness. The patient has no recollection of the collision, awakening in an ambulance. She reports her daughter performed chest compressions, concerned for her condition. Following the accident, the patient was taken to the hospital, where imaging indicated a fractured sternum, ribs two through six on the right side, and a broken right shoulder, for which she was awaiting rotator cuff surgery. There is the involvement of post-concussive symptoms such as blurred vision and ongoing headaches. Headache and blurred vision started today. The patient describes severe pain in the chest area, exacerbated by movement, making sleep difficult. Musculoskeletal discomfort is noted in the neck and back regions. There is facial swelling on the left side, suggesting potential muscular strain post- collision. Prior to this injury, she received a cortisone injection for the rotator cuff but found no prolonged relief, Celebrex was prescribed. For this accident, Tramadol 50mg is prescribed for pain management, it is not holding, she has self increased to 100 mg twice daily for significant relief. Gabapentin has also been prescribed, taking 100mg BID. She cannot tolerate oxycodone due to nausea and is exploring further assistance. Will be seeing [facility] tomorrow and Trauma surgeon Saturday After that evaluation, starting on 04/03 she developed headaches, blurry vision, increased fatigue and nausea. These have persisted and occurred throughout the weekend. Concern is for small bleed ROS see HPI PHYSICAL EXAM: GENERAL: Alert and oriented x 3. NAD EYES: EOMI. Anicteric. HENT: Moist mucous membranes. No scleral icterus. No cervical lymphadenopathy. LUNGS: Clear to auscultation bilaterally. CARDIOVASCULAR: Regular rate and rhythm. No murmur. No JVD. ABDOMEN: Soft, non-tender +bs EXTREMITIES: No edema. Non-tender. SKIN: No rashes or lesions. Warm. NEUROLOGIC: No focal neurological deficits. CN II-XII grossly intact PSYCHIATRIC: Cooperative. Appropriate mood and affect [facility] History Constipation Generalized anxiety disorder Intestinal malabsorption Overweight Surgical History S/P excision of ganglion cyst S/P tonsillectomy S/P RIA (total abdominal hysterectomy) Hx of breast biopsy Hx laparoscopic cholecystectomy History of sleeve gastrectomy Family History Father No problems noted. Mother Stroke Son No problems noted. Daughter No problems noted. 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 1. Little interest or pleasure in doing things: not at all 2. Feeling down, depressed, or hopeless: not at all 3. Trouble falling or staying asleep, or sleeping too much: not at all 4. Feeling tired or having little energy: not at all 5. Poor appetite or overeating: not at all 6. Feeling bad about yourself - or that you are a failure or have let yourself or your family down: not at all 7. Trouble concentrating on things, such as reading the newspaper or watching television: not at all 8. Moving or speaking so slowly that other people could have noticed. Or the opposite - being so fidgety or restless that you have been moving around a lot more than usual: not at all 9. Thoughts that you would be better off or of hurting yourself in some way: not at all Total score: 0 Source: Developed by Drs. Breezy Garces, Yelitza Chaudhry, Jonathan Matthew and colleagues, with an educational ingris from [employer]. Thrive Questionnaire Date Thrive assessed: 11/26/23 I am a: Patient What is your living situation today?: I have a steady place to live Within the past 12 months, did the food you bought not last and you didn't have the money to get more?: Never true Within the past 12 months, did you worry whether your food would run out before you got money to buy more?: Never true Do you have trouble paying for medicines?: No Do you have trouble getting transportation to medical appointments?: No Do you have trouble paying your heating and electricity bill?: No Do you have trouble taking care of your child, family member or friend?: No Do you have trouble with day-to-day activities such as bathing, preparing meals, shopping, managing finances, etc.?: No Are you currently unemployed and looking for a job?: No Are you interested in more education?: No Please select the resources that you would like help with: None Currently or been in a relationship where the following occur: No concerns reported THRIVE Score: 0 AUDIT C Alcohol Use Questionnaire (AUDIT-C) 1. How often do you have a drink containing alcohol?: Never Total Score: 0 OZ-7 AMB Questionnaire OZ-7 Date OZ - 7 assessed: 11/26/23 Feeling nervous, anxious, or on edge: 2 = More than half the days Not being able to stop or control worryin = Not at all Worrying too much about different things: 0 = Not at all Trouble relaxin = Several days Being so restless that it is hard to sit still: 0 = Not at all Becoming easily annoyed or irritable: 0 = Not at all Feeling afraid as if something awful might happen: 0 = Not at all Total OZ-7 score (0-4 normal; 5-9 mild; 10-14 moderate; 15-21 severe): 3 Source: Developed by Drs. Breezy Garces, Yelitza Chaudhry, Jonathan Matthew and colleagues, with an educational ingris from [employer]. Physical exam (Primary Care) Tobacco/Smoking Status: Tobacco use Status Tobacco use date assessed 04/01/24 04/06/24 11:01 Patient Tobacco Use Status Never used Tobacco 04/06/24 11:01 e-Cigarette/Vaping Use Never Used 04/06/24 11:01 PHQ-9: PHQ-9 Score PHQ-9: Total score 0 04/06/24 11:01 Thrive Assessment: Date of Thrive Assessment Date Thrive assessed 11/26/23 04/06/24 11:01 Currently or been in a relationship where the following occur: No concerns reported Coding Level of Care Code Est Pt Level 4 (89452) Diagnoses Acute post-traumatic headache, not intractable G44.319 Headache chronicity pattern: acute headache Intractability: not intractable Vision changes H53.9 Assessment & Plan Assessment & Plan (1) Post-traumatic headache: Code(s): G44.309 - Post-traumatic headache, unspecified, not intractable Category: Medical Qualifiers: Headache chronicity pattern: acute headache Intractability: not intractable Qualified Code(s): G44.319 - Acute post-traumatic headache, not intractable Plan: JOHNSON with vision changes MRI stat order (2) Vision changes: Code(s): H53.9 - Unspecified visual disturbance Category: Medical Plan: see HPI Orders: Orders MR head/brain wo con Today G44.319 - Acute post-traumatic headache, not intractable, H53.9 - Unspecified visual disturbance
== END 2024-04-06 11:31 | disposition home or self-care (01) ==
PROVIDERS: PCP Nurse Practitioner Family; Visit Provider Internal Medicine
DX: G44.319 Acute post-traumatic headache, not intractable (principal); H53.9 Unspecified visual disturbance

== ENCOUNTER 2024-04-07 13:02 | Outpatient (REF) | payer OTHER, SELFPAY ==
--- NOTE | ~2024-04-07 | MR_ITS ---
CLINICAL HISTORY: G44.319 - Acute post-traumatic headache, not intractable MR Brain without gadolinium Comparison: MR/REG/OH - MRI BRAIN WITHOUT CONT [id number] - 08/16/18 14:00 EDT Findings: No restricted diffusion. No intracranial mass or hemorrhage. No midline shift. No hydrocephalus. Vascular flow voids are intact. The orbits are normal. The sinuses and mastoid air cells are clear. No focal bone lesion. IMPRESSION: No acute findings. This document has been electronically signed by: Jewell Horan MD on 04/07/2024 17:23:43
--- OUTSIDE RECORDS SUMMARY | 2024-04-07 13:58 | XMS_ITS ---
Author Organization [facility] Address [address] [place] [address] Care Team Providers Care Afternoon Nanny Name Role Phone Andreas JEWEL OLIVING MACHINE OPERATOR, [facility] Primary Care Provider Unavail able Eduarda Snell Unavailable [phone] REASON FOR VISIT Work Note Medications Medication SIG (Take, Route, Frequency, Duration) Notes Start Date End Date Status Work Note . . . Patient can retu rn to work on Apr 09, 2023 03/29/2023 Active Encounters Encounter Location Date Provider Diagnosis [facility] [address] [place] [address] 03/29/2023 Eduarda Snell Plan Of Treatment Medication Medication Name Sig Start Date Stop Date Notes Work Note . . . Patient can retu rn to work on Apr 09, 2023 03/29/2023 Progress Notes * Charley AGUILAR RDOB:[birth year] (47 yo F)Acc No.[id number]:03/29/2023 Patient:?Charley Aguilar :1975???Age:47 Y???Sex:Female Address:[address] [place] [address] * Refills? Start Work Note ., ., ., ., Patient can return to work on Apr 09, 2023 * true * Date:? Generated for Tatiana puckett/Misti/eTransmitting on:?04/07/2024 01:58 PM EST
--- OUTSIDE RECORDS SUMMARY | 2024-04-07 13:58 | XMS_ITS | Patient Health Record ---
Author Organization [facility] Address [address] [place] [address] Care Team Providers Care Core Java Software Engineer Name Role Phone Andreas NECKTIES PAINTER, [place] Primary Care Provider Unavail able Eduarda Snell Unavailable [phone] Allergies Allergen (clinical drug ingredient) Drug/Non Drug [...] . 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.] Insured Coverage Start Date Coverage End Date [facility] [address] [place] [address] [id number] Charley Aguilar Self - patient is the insured Medical (General) History Medical History History ICD Code Gall bladder problems Headaches/Migraines Hiatal hernia Chicken pox Surgical History Surgery Date(Month/Year) gall bladder 1993 tonsillectomy 1996 hysterectomy 2018 VSG 2019 Antony bunionectomy left foot 09/27/2021 Vasquez Osteotomy L, Mod David L
--- OUTSIDE RECORDS SUMMARY | 2024-04-07 13:59 | XMS_ITS ---
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 ?Marital status: single. 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 * Medications:?TakingCetirizin e HCl 10 MG Tablet 1 tablet Orally Once a daycloNIDine HCl Probiotic Multivitamin Work Note . . . . 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 . . Pt [...] . Patient to return to work maritime engineer without restrictionsTaking Physical Therapy . . . [...] ray : Foot, left 3V * Procedure Codes:?09802 X-RAY EXAM OF LEFT FOOT 3V, Modifiers: [...] Snell DPM Date:? Generated for Tatiana puckett/Misti/Damián on:?04/07/2024 01:58 PM EST History and Physical Notes * [...]
--- OUTSIDE RECORDS SUMMARY | 2024-04-07 13:59 | XMS_ITS | Clinical Summary ---
Author Organization [facility] Address [address] [place] [address] Care Team Providers Care Claims Adjuster Crop Name Role Phone Doroteo Feliz Primary Care Provider Unavailabl e Allergies Active Allergy Reactions Severity Noted Date Comments Codeine 11/03/2015 Nausea Levofloxacin 11/03/2015 nausea Social History Tobacco Use Types Packs/Day Years Used Date Smoking Tobacco: Never Alcohol Use Standard Drinks/Week Comments No 0 (1 standard drink = 0.6 oz pur e alcohol) Sex Assigned at Date Recorded Not on file Plan of Treatment Health Maintenance Due Date Last Done Comments Covid-19 Vaccine (#1) 04/17/1978 TOBACCO CHECK/ADVISE 10/16/1995 DTAP/TDAP/TD (1 - Tdap) 1996 CHOLESTEROL SCREENING 1997 CERVICAL CANCER SCREENING 1998 BASELINE HEALTH EXAM 40-64 2017 MAMMOGRAM 2017 INFLUENZA (#1) 2023 BMI CHECK/ADVISE 02/19/2024 PNEUMOCOCCAL VACCINE FOR HIGH RISK PATIENTS (#1) 10/15 Care Teams Claims Adjuster Crop Relationship Specialty Start Date End Date Doroteo Feliz PCP - General Internal Medicine 11/01/15
--- OUTSIDE RECORDS SUMMARY | 2024-04-07 13:59 | XMS_ITS ---
Author Organization [facility] Address [address] [place] [address] Care Team Providers Care Corporate Banking Officer Name Role Phone Andreas ALAN, [place] Primary Care Provider Unavail able Eduarda Snell Unavailable [phone] Allergies Allergen (clinical drug ingredient) Drug/Non Drug [...] . 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 ?Marital status: single. 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 * Medications:?TakingZofran Vi codin BuSpar Voltaren 1 % Gel as directed Externally Cetirizine HCl 10 MG Tablet 1 tablet Orally Once a daycloNIDine HCl Probiotic Multivitamin traMADol HCl 50 MG Tablet 1 tablet as needed Orally Every 6 hours as neededPhysical Therapy . . . . 2-3x/weekWork Note . . . . Patient to return to work realtime court reporter without restrictionsOndansetron HCl 4 MG Tablet Disintegrating [...] . . Patient to return to work realtime court reporter without restrictionsTaking Ondansetron HCl 4 MG Tablet [...] ray : Foot, left 3V * Procedure Codes:?12950 X-RAY EXAM OF LEFT FOOT 3V, Modifiers: [...] Snell DPM Date:?01/2024 Generated for Tatiana puckett/Misti/Damián on:?04/07/2024 01:58 PM [...]
== END 2024-04-07 13:03 | disposition home or self-care (01) ==
LOC: HO.MRI 13:02
PROVIDERS: PCP Nurse Practitioner Family; Visit Provider Internal Medicine
DX: G44.319 Acute post-traumatic headache, not intractable (principal); H53.9 Unspecified visual disturbance
CPT/HCPCS: 70551

== ENCOUNTER → 2024-04-07 13:15 | Outpatient (BNV) | payer OTHER, SELFPAY | PROVIDERS: PCP Nurse Practitioner Family; Visit Provider Radiology Diagnostic Radiology | DX: G44.319 Acute post-traumatic headache, not intractable (principal); H53.9 Unspecified visual disturbance | CPT/HCPCS: 70551 ==

== ENCOUNTER 2024-04-16 13:17 | Outpatient (AMB) | payer OTHER, SELFPAY ==
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
[2024-04-16 13:34] VITALS: BMI 33.4
--- OUTSIDE RECORDS SUMMARY | 2024-04-16 15:51 | XMS_ITS ---
Author Organization [facility] Address [address] [place] [address] Care Team Providers Care Bale Stacker Name Role Phone Andreas RELIGIOUS LEADER, [facility] Primary Care Provider Unavail able Eduarda Snell Unavailable [phone] REASON FOR VISIT Work Note Medications Medication SIG (Take, Route, Frequency, Duration) Notes Start Date End Date Status Work Note . . . Patient can retu rn to work on Apr 09, 2023 03/29/2023 Active Encounters Encounter Location Date Provider Diagnosis [facility] [address] [place] [address] 03/29/2023 Eduarda Snell Plan Of Treatment Medication Medication Name Sig Start Date Stop Date Notes Work Note . . . Patient can retu rn to work on Apr 09, 2023 03/29/2023 Progress Notes * Charley AGUILAR RDOB:[birth year] (47 yo F)Acc No.[id number]:03/29/2023 Patient:?Charley Aguilar :1975???Age:47 Y???Sex:Female Address:[address] [place] [id number] * Refills? Start Work Note ., ., ., ., Patient can return to work on Apr 09, 2023 * true * Date:? Generated for Tatiana puckett/Misti/eTransmitting on:?04/16/2024 03:51 PM EST
--- OUTSIDE RECORDS SUMMARY | 2024-04-16 15:52 | XMS_ITS | Patient Health Record ---
Author Organization 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) Active confirmed Problem Acquired hallux valgus (95148998) Acquired hallux interphalangeus of left foot (M20.12) Active confirmed Plan Of Treatment Pending Test Test Name [...] Insured Coverage Start Date Coverage End Date [facility] [address] [place] [address] [id number] Charley Aguilar Self - patient is the insured Medical (General) History Medical History History ICD Code Gall bladder problems Headaches/Migraines Hiatal hernia Chicken pox Surgical History Surgery Date(Month/Year) gall bladder 1993 tonsillectomy 1996 hysterectomy 2019 VSG 2020 Antony bunionectomy left foot 09/27/2021 Vasquez Osteotomy L, Mod David Regine
--- OUTSIDE RECORDS SUMMARY | 2024-04-16 15:52 | XMS_ITS ---
Author Organization [facility] Address [address] [place] [address] Care Team Providers Care Assemblyman Or Woman Name Role Phone Andreas ALAN, [place] Primary Care Provider Unavail able Eduarda Snell Unavailable [phone] Allergies Allergen (clinical drug ingredient) Drug/Non Drug [...] 04/12/2023 Encounters Encounter Location Date Provider Diagnosis [facility] [place] [address] [place] [address] 04/12/2023 Eduarda Snell Bunion of great toe [...] Charley AGUILAR RDOB:[birth year] (47 yo F)Acc No.[id number]:04/12/2023 Progress Notes Patient:?Charley Aguilar R Provider:?Eduarda Snell DPM :1975???Age:47 Y???Sex:Female D ate:04/12/2023 Address:[address] [place] [address] [place], [id number] Pcp:Lennox Johns NP Subjective: * Chief Complaints: [...] out at gym. ?Marital status: single. 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 * [...] ray : Foot, left 3V * Procedure Codes:?67252 X-RAY EXAM OF LEFT FOOT 3V, Modifiers: [...] Snell DPM Date:? Generated for Tatiana puckett/Misti/Damián on:?04/16/2024 03:51 PM EST History and Physical Notes * [...]
--- OUTSIDE RECORDS SUMMARY | 2024-04-16 15:52 | XMS_ITS ---
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 Probiotic Active Multivitamin [...] 03/01/2023 Encounters Encounter Location Date Provider Diagnosis [facility] [address] [address] 03/01/2023 Eduarda Snell Bunion of great toe [...] Charley AGUILAR RDOB:[birth year] (47 yo F)Acc No.[id number]:03/01/2023 Progress Notes Patient:?Charley Aguilar Provider:?Eduarda Snell DPM :1975???Age:47 Y???Sex:Female D ate:03/01/2023 Address:[address] [place] [phone] Pcp:Lennox Johns NP Subjective: * Chief Complaints: * ???PCP - ost-op * HPI: ???Post-op:?The patient presents for post-op of?Left Mod aDvid , Bunionectomy and Vasquez Osteotomy?.?Date of Surgery?:?01/16/2023 [...] out at gym. ?Marital status: single. 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 * [...] . Patient to return to work realtime reporter without restrictionsOndansetron HCl 4 MG Tablet [...] . Patient to return to work realtime reporter without restrictionsTaking Ondansetron HCl 4 MG [...] ray : Foot, left 3V * Procedure Codes:?84553 X-RAY EXAM OF LEFT FOOT 3V, Modifiers: [...] Snell DPM Date:?01/2024 Generated for Tatiana puckett/Misti/Damián on:?04/16/2024 03:51 PM [...]
== END 2024-04-16 14:09 | disposition home or self-care (01) ==
PROVIDERS: PCP Nurse Practitioner Family; Visit Provider Physician Assistant
DX: S42.141A Displaced fracture of glenoid cavity of scapula, right shoulder, initial encounter for closed fracture (principal)
CPT/HCPCS: 99213

== ENCOUNTER → 2024-04-16 13:22 | Outpatient (BNV) | payer OTHER, SELFPAY | PROVIDERS: Visit Provider Radiology Diagnostic Radiology | DX: S42.141A Displaced fracture of glenoid cavity of scapula, right shoulder, initial encounter for closed fracture (principal); M79.631 Pain in right forearm | CPT/HCPCS: 73010; 73090 ==

== ENCOUNTER 2024-04-16 13:47 | Outpatient (REF) | payer OTHER, SELFPAY ==
--- NOTE | ~2024-04-16 | XR_ITS ---
EXAMINATION: XR SCAPULA, RIGHT CLINICAL INFORMATION: S42.143A - Displaced fracture of glenoid cavity of scapula, unspecified ... COMPARISON: 12/26/2023. TECHNIQUE: AP and scapular Y views of the right scapula. FINDINGS: There is an obliquely oriented fracture of the mid and superior glenoid at the approximate 2:00 position, extending medially to involve the base of the coracoid process. There is no significant displacement. No articular step-off is noted. No additional fracture. Normal glenohumeral alignment. There is mild superior subluxation of distal clavicle in relation to the acromion, findings suggestive of a AC separation. New from prior. XR/XR scapula RT IMPRESSION: 1. Obliquely oriented fracture of the superior glenoid, nondisplaced, extending to approximately 2.0 in position. It extends medially to involve the base of the coracoid. 2. Moderate grade AC separation. Electronically signed by: Tevin Valenzuela MD 04/16/2024 03:51 PM DAO STUART
--- NOTE | ~2024-04-16 | XR_ITS ---
EXAMINATION: XR FOREARM 2 VIEWS RIGHT HISTORY: M79.631 - Pain in right forearm COMPARISON: There are no prior studies available for comparison. FINDINGS: AP and lateral views of the right forearm are submitted. Osseous mineralization is normal. There is no fracture or dislocation. The visualized wrist and elbow joint spaces are preserved. The soft tissues are unremarkable. XR/XR forearm RT 2V IMPRESSION: Unremarkable examination of the right forearm. Electronically signed by: Breezy Parra MD 04/16/2024 03:36 PM EST
--- OUTSIDE RECORDS SUMMARY | 2024-04-16 16:38 | XMS_ITS | Encounter Summary ---
[facility] Address [address] [place] [address] Care Team Providers Care City Constable Name Role Phone Doroteo Feliz Primary Care Provider Alannah bob Encounter Details Date Type Department Care Team Description 11/10/2015 Release of Information Medical Records [address] [place] [id number] Abstract, Provider Social History Tobacco Use Types [...] on filedocumented in this encounter Care Teams City Constable Relationship Specialty Start Date End Date Doroteo Feliz PCP - General Internal Medicine 11/01/15 documented as of this encounter
--- OUTSIDE RECORDS SUMMARY | 2024-04-16 16:38 | XMS_ITS | Encounter Summary ---
Author Organization [facility] Address [address] [place] [address] Care Team Providers Care Environmental Air Specialist Name Role Phone Doroteo Feliz Primary Care Provider Unavailabl e Reason for Referral * Non BILL (Urgent) - Authorized/Booked Specialty Diagnoses / Procedures Referred By Contac t Referred To Contact COMMERCIAL PEST CONTROL TECHNICIAN Diagnoses Breast feeding status of mother Procedures REFERRAL TO BREAST FEEDING MEDICINE Wanda Coon MD [address] [place] [address] Breast Feeding/[address] [place] [address] Referral ID Status Reason Start Date Expiration Date V isits Requested Visits Authorized TODAY/TOMORRO W Authorized/ Booked 11/02/2015 11/01/2016 1 1 Encounter Details Date Type Department Care Team Description 11/02/2015 Orders Only Pediatrics - [address] [address] Wanda Coon MD Breast feeding status of [...] mother documented in this encounter Care Teams Environmental Air Specialist Relationship Specialty Start Date End Date Doroteo Feliz PCP - General Internal Medicine 11/01/15 documented as of this encounter
--- OUTSIDE RECORDS SUMMARY | 2024-04-16 16:38 | XMS_ITS | Clinical Summary ---
Author Organization [facility] Address [address] [place] [address] Care Team Providers Care Coal Gasification Technician Name Role Phone Doroteo Feliz Primary Care [...] HIGH RISK PATIENTS (#1) 10/15 Care Teams Coal Gasification Technician Relationship Specialty Start Date End Date Doroteo Feliz PCP - General Internal Medicine 11/01/15
== END 2024-04-16 13:48 | disposition home or self-care (01) ==
LOC: HO.HOSX 13:47
PROVIDERS: Visit Provider Physician Assistant
DX: S42.141D Displaced fracture of glenoid cavity of scapula, right shoulder, subsequent encounter for fracture with routine healing (principal); M79.631 Pain in right forearm
CPT/HCPCS: 73010; 73090

== ENCOUNTER 2024-05-13 08:20 | Outpatient (REF) | payer OTHER, SELFPAY ==
--- NOTE | ~2024-05-13 | XR_ITS ---
EXAMINATION: XR SCAPULA RIGHT HISTORY: S42.141A - Displaced fracture of glenoid cavity of scapula, right shoulder... COMPARISON: Comparison is made with the prior examination dated 04/16/2024. FINDINGS: Two views of the right scapula are submitted. Again seen is a nondisplaced fracture of the glenoid extending to the coracoid process. The fracture line remains visible. The glenohumeral and acromioclavicular joints are maintained. The soft tissues are unremarkable. XR/XR scapula RT IMPRESSION: Nondisplaced fracture of the glenoid without change. Electronically signed by: Breezy Parra MD 05/14/2024 07:36 AM EDT
== END 2024-05-13 08:21 | disposition home or self-care (01) ==
LOC: HO.HOSX 08:20
PROVIDERS: Visit Provider Physician Assistant
DX: S42.141D Displaced fracture of glenoid cavity of scapula, right shoulder, subsequent encounter for fracture with routine healing (principal)
CPT/HCPCS: 73010

== ENCOUNTER 2024-05-13 13:58 | Outpatient (AMB) | payer OTHER, SELFPAY ==
--- NOTE | 2024-05-13 14:12 | MHC.OFFVIS ---
Intake Visit Reasons: OV-RT shoulder glenoid fx f/u Intake Note: Charley is a 48 year old right hand dominant female who presents today for a follow up of non-displaced intra-articular glenoid fracture s/p recent sledding injury on 03/28/24. Patient reports constant discomfort in her shoulder. States she is not able to sleep at night due to shoulder discomfort. Finds little relief with taking Celebrex. Allergies latex [Latex] Allergy (Severe, Verified 05/13/24 14:19) SWELLING,ITCHING codeine [CODEINE] Allergy (Intermediate, Verified 05/13/24 14:19) N/V levofloxacin [From Levaquin] Allergy (Mild, Verified 05/13/24 14:19) N/V Medication List - Last Reconciled 05/13/24 by Ira Ferreira PA-C bupropion HCl XL 300 mg PO QAM buspirone 10 mg PO TID celecoxib 200 mg PO BID clonidine HCl 0.2 mg PO DAILY gabapentin 100 mg PO TID thiamine HCl (vitamin B1) 100 mg PO DAILY 90 days valacyclovir 500 mg PO DAILY HPI HPI OV-RT shoulder glenoid fx f/u: Details: 48-year-old female returns to the office today for a follow-up right glenoid fracture. She states she continues to have discomfort and feels her shoulder is unstable. She has difficulty with sleeping at night. CT scan is scheduled for 06/04/2024. PFSH Medical History Constipation Generalized anxiety disorder Intestinal malabsorption Overweight Surgical History S/P excision of ganglion cyst S/P tonsillectomy S/P RIA (total abdominal hysterectomy) Hx of breast biopsy Hx laparoscopic cholecystectomy History of sleeve gastrectomy Family History Father No problems noted. Mother Stroke Son No problems noted. Daughter No problems noted. 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 She does have evidence of a hematoma over the shoulder in tenderness to palpation along the scapular region. She does have protraction of the scapula. She is neurovascularly intact. Results Reviewed Results Reviewed: X-rays of the right glenoid obtained in the office today show a nondisplaced intra-articular glenoid fracture Assessment & Plan Assessment & Plan (1) Fracture of glenoid cavity of right scapula: Code(s): S42.141A - Displaced fracture of glenoid cavity of scapula, right shoulder, initial encounter for closed fracture Category: Medical Plan: I change the referral for the CT scan to stat as this is a fracture that is time sensitive with treatment and we need to further evaluate the extent of the fracture. She understands she needs to avoid any lifting pushing pulling or carrying activities. She was given a prescription for tramadol to take at nighttime. I will see her back once the scan is complete. Orders: Orders XR scapula RT Today S42.141A - Displaced fracture of glenoid cavity of scapula, right shoulder, initial encounter for closed fracture Coding Level of Care Code Global (95829) Diagnoses Fracture of glenoid cavity of right scapula S42.141A
== END 2024-05-13 15:10 | disposition home or self-care (01) ==
LOC: HO.HOS 13:59
PROVIDERS: PCP Nurse Practitioner Family; Visit Provider Physician Assistant
DX: S42.141A Displaced fracture of glenoid cavity of scapula, right shoulder, initial encounter for closed fracture (principal)
CPT/HCPCS: 99213

== ENCOUNTER → 2024-05-13 14:00 | Outpatient (BNV) | payer OTHER, SELFPAY | PROVIDERS: Visit Provider Radiology Diagnostic Radiology | DX: S42.144A Nondisplaced fracture of glenoid cavity of scapula, right shoulder, initial encounter for closed fracture (principal) | CPT/HCPCS: 73010 ==

== ENCOUNTER 2024-05-15 15:25 | Outpatient (REF) | payer OTHER, SELFPAY ==
--- NOTE | ~2024-05-15 | CT_ITS ---
EXAMINATION: CT SHOULDER WITHOUT CONTRAST, RIGHT CLINICAL INFORMATION: Glenoid fracture. COMPARISON: No prior CT. MRI right shoulder 02/25/2024. Plain films right scapula 05/13/2024, 04/16/2024. TECHNIQUE: Spiral CT imaging of the right shoulder performed in axial plane without contrast. Multiplanar reformatted images were constructed from the axial data set. This CT examination was performed using dose optimization techniques as appropriate, variously including the following: *Automated exposure control *Adjustment of mA and/or kV according to patient size (this includes techniques or standardized protocols for targeted exams where dose is matched to indication/reason for exam; i.e. extremities or head) *Use of iterative reconstruction technique FINDINGS: There is comminuted fracture of the mid to superior glenoid, extending anteriorly to the base of the coracoid process, and posterior medially through the proximal body of the scapula. There is minimal displacement. There is no articular step-off identified. Marginal bony callus present abutting the medial and posterior aspects of the fracture, indicating healing. There is an associated mild AC joint separation suspected. No additional fractures. No malalignment. The humeral head is intact. The clavicle is intact. The imaged right ribs and imaged spine are intact. There is a small residual joint effusion. Grossly the rotator cuff and shoulder girdle musculature appears normal in CT attenuation. There is no hematoma. No abnormal lymph nodes detected. The imaged right lung is clear. There is no effusion. CT/CT shoulder RT wo IV con IMPRESSION: 1. Comminuted fracture of the superior glenoid without significant displacement. Evidence of marginal bony callus formation and early healing. 2. Suspect low-grade AC joint separation. 3. Small residual joint effusion. Electronically signed by: Tevin Valenzuela MD 05/15/2024 04:21 PM EDT
== END 2024-05-15 15:26 | disposition home or self-care (01) ==
LOC: HO.CT 15:25
PROVIDERS: Visit Provider Physician Assistant
DX: S42.141A Displaced fracture of glenoid cavity of scapula, right shoulder, initial encounter for closed fracture (principal)
CPT/HCPCS: 73200

== ENCOUNTER → 2024-05-15 15:27 | Outpatient (BNV) | payer OTHER, SELFPAY | PROVIDERS: Visit Provider Radiology Diagnostic Radiology | DX: S42.141A Displaced fracture of glenoid cavity of scapula, right shoulder, initial encounter for closed fracture (principal) | CPT/HCPCS: 73200 ==

== ENCOUNTER 2024-05-25 10:53 | Outpatient (AMB) | payer OTHER, SELFPAY ==
--- NOTE | 2024-05-25 10:57 | MHC.OFFVISWM ---
VS Expanded 05/25/24 10:58 05/25/24 11:03 BP 129/79 Blood Pressure Location Rt brachial Blood Pressure Position Sitting Pulse 70 Pulse Source Pulse Oximeter Temp 97.0 F Temperature Source Temporal Artery Scan Pulse Oximetry 100 Oxygen Delivery Method Room Air Height 5 ft 5 in 5 ft 5 in Weight 194 lb BMI 32.3 Body Fat % 41.0 Body Fat Mass 79.6 Fat Free Mass 114.6 Visceral Fat Rating 9.0 Body Water % 42.1 Body Water Mass 81.8 Muscle Mass/Score 109.0 Basal Metabolic Rate/Score 1,589 Intake Visit Reasons: (OV) PO LSG 09/09/19 Allergies latex [Latex] Allergy (Severe, Verified 05/25/24 10:59) SWELLING,ITCHING codeine [CODEINE] Allergy (Intermediate, Verified 05/25/24 10:59) N/V levofloxacin [From Levaquin] Allergy (Mild, Verified 05/25/24 10:59) N/V Medication List - Last Reconciled 05/25/24 by AMBER Galarza bupropion HCl XL 300 mg PO QAM buspirone 10 mg PO TID celecoxib 200 mg PO BID clonidine HCl 0.2 mg PO DAILY thiamine HCl (vitamin B1) 100 mg PO DAILY 90 days tramadol 50 mg PO BEDTIME 14 days valacyclovir 500 mg PO DAILY HPI Comments Details: This?is a?48?yo female who is s/p LSG 09/09/2019. Weight has remained stable since last OV in July 2023. No complaints of nausea, emesis, abdominal pain or reflux, or constipation. Lowest weight- 160. [place] comfortable at 170 which she achieved in 2021. She did well on phentermine in the past Present meal plan includes: fair life 30 g shake Zone perfect bar Meal 7 forks protein and 7 forks vegetables -given at last OV Exercise routine includes: has a walking pad, but limited due to recent sledding accident Have you been diagnosed with reflux (GERD)? Score 0-5: 0=no symptoms, 1=noticeable but not bothersome (slight or occasional), 2=noticeable, bothersome but not daily, 3=bothersome and daily, 4=affects daily activities, 5=incapacitating, unable to do daily activities How bad is the heartburn: 0 Heartburn when lying down: 0 Heartburn when standing up: 0 Heartburn after meals: 0 Does heartburn change your diet: 0 Does heartburn wake you up from sleep: 0 Do you have difficulty swallowin Do you have pain with swallowin If you take medication for reflux, does this affect your daily life: 0 Total score: 0 PFSH Medical History Constipation Generalized anxiety disorder Intestinal malabsorption Overweight Surgical History S/P excision of ganglion cyst S/P tonsillectomy S/P RIA (total abdominal hysterectomy) Hx of breast biopsy Hx laparoscopic cholecystectomy History of sleeve gastrectomy Family History Father No problems noted. Mother Stroke Son No problems noted. Daughter No problems noted. 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 Discussed option of GLP1 also; her insurance may require 3 months on phentermine. Pt will monitor BP daily at home and send measurements as well as weekly weight measurements. She will discuss stopping/weaning Wellbutrin with her PCP as this was for appetite, not depression. Labs done in Oct, due again in fall. RTC 6 weeks. Medications: New phentermine must administer 2 hours after breakfast 30 mg PO DAILY 30 caps 0RF
[2024-05-25 11:03] VITALS: BP 129/79; PULSE 70; TEMP 36.1; O2SAT 100; BMI 32.3
--- OUTSIDE RECORDS SUMMARY | 2024-05-25 13:01 | XMS_ITS ---
Author Organization [facility] Address [address] [place] [address] Care Team Providers Care Marine Engineering Consultant Name Role Phone Andreas NC MACHINIST, [facility] Primary Care Provider Unavail able Eduarda Snell Unavailable [phone] REASON FOR VISIT Work Note Medications Medication SIG (Take, Route, Frequency, Duration) Notes Start Date End Date Status Work Note . . . Patient can retu rn to work on Apr 09, 2023 03/29/2023 Active Encounters Encounter Location Date Provider Diagnosis [facility] [address] [place] [address] 03/29/2023 Eduarda Snell Plan Of Treatment Medication Medication Name Sig Start Date Stop Date Notes Work Note . . . Patient can retu rn to work on Apr 09, 2023 03/29/2023 Progress Notes * Charley AGUILAR RDOB:[birth year] (47 yo F)Acc No.[id number]:03/29/2023 Patient:?Charley Aguilar :1975???Age:47 Y???Sex:Female Address:[address] [place] [address] * Refills? Start Work Note ., ., ., ., Patient can return to work on Apr 09, 2023 * true * Date:? Generated for Tatiana puckett/Misti/eTransmitting on:?05/25/2024 01:01 PM EDT
--- OUTSIDE RECORDS SUMMARY | 2024-05-25 13:02 | XMS_ITS ---
Author Organization [facility] Address [address] [place] [address] Care Team Providers Care Surface Supply Breathing Apparatus Name Role Phone Andreas ALAN, [place] Primary Care Provider Unavail able Eduarda Snell Unavailable [phone] Allergies Allergen (clinical drug ingredient) Drug/Non Drug [...] . 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 ?Marital status: single. 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 * Medications:?TakingCetirizin e HCl 10 MG Tablet 1 tablet Orally Once a daycloNIDine HCl Probiotic Multivitamin Work Note . . . . Patient to return to work heel attacher without restrictionsPhysical Therapy . . . Pt [...] . . Patient to return to work heel attacher without restrictionsTaking Physical Therapy . . . [...] ray : Foot, left 3V * Procedure Codes:?94545 X-RAY EXAM OF LEFT FOOT 3V, Modifiers: [...] Snell DPM Date:? Generated for Tatiana puckett/Misti/Damián on:?05/25/2024 01:01 PM EDT History and Physical Notes * HPI (History [...]
--- OUTSIDE RECORDS SUMMARY | 2024-05-25 13:02 | XMS_ITS | Patient Health Record ---
Author Organization [facility] Address [address] [place] [address] Care Team Providers Care Delinquency Prevention Social Worker Name Role Phone Andreas TEST CONDUCTOR, [place] Primary Care Provider Unavail able Eduarda Snell Unavailable [phone] Allergies Allergen (clinical drug ingredient) Drug/Non Drug [...] . 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) Active confirmed Problem Acquired hallux valgus (83908346) Acquired hallux interphalangeus of left foot (M20.12) [...] Insured Coverage Start Date Coverage End Date [facility] [address] [place] [address] [id number] Charley Aguilar Self - patient is the insured Medical (General) History Medical History History ICD Code Gall bladder problems Headaches/Migraines Hiatal hernia Chicken pox Surgical History Surgery Date(Month/Year) gall bladder 1993 tonsillectomy 1996 hysterectomy 2019 VSG 2020 Antony bunionectomy left foot 09/27/2021 Vasquez Osteotomy L, Mod David Regine
--- OUTSIDE RECORDS SUMMARY | 2024-05-25 13:02 | XMS_ITS ---
Author Organization [facility] Address [address] [place] [address] Care Team Providers Care Marker Hand Name Role Phone Andreas ALAN, Lennox Primary Care Provider Unavail able Eduarda Snell Unavailable [phone] Allergies Allergen (clinical drug ingredient) Drug/Non Drug [...] . 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 ?Marital status: single. 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 * Medications:?TakingZofran V icodin BuSpar Voltaren 1 % Gel as directed Externally Cetirizine HCl 10 MG Tablet 1 tablet Orally Once a daycloNIDine HCl Probiotic Multivitamin traMADol HCl 50 MG Tablet 1 tablet as needed Orally Every 6 hours as neededPhysical Therapy . . . . 2-3x/weekWork Note . . . . Patient to return to work registered phlebotomist part time without restrictionsOndansetron HCl 4 MG Tablet Disintegrating [...] . . Patient to return to work registered phlebotomist part time without restrictionsTaking Ondansetron HCl 4 MG Tablet [...] ray : Foot, left 3V * Procedure Codes:?85216 X-RAY EXAM OF LEFT FOOT 3V, Modifiers: [...] Snell DPM Date:?01/2024 Generated for Tatiana puckett/Misti/Damián on:?05/25/2024 01:01 PM [...]
== END 2024-05-25 11:33 | disposition home or self-care (01) ==
LOC: HO.HBS 10:53
PROVIDERS: Visit Provider Physician Assistant Surgical
DX: E66.811 Obesity, class 1 (principal); Z68.32 Body mass index [BMI] 32.0-32.9, adult; Z90.3 Acquired absence of stomach [part of]; Z98.84 Bariatric surgery status
CPT/HCPCS: 99214

== ENCOUNTER → 2024-05-25 10:53 | Outpatient (BNVA) | payer OTHER, SELFPAY | PROVIDERS: Visit Provider Physician Assistant Surgical ==

== ENCOUNTER 2024-06-02 23:09 | Emergency (ER) | payer OTHER, SELFPAY ==
--- NOTE | ~2024-06-02 | US_ITS ---
CLINICAL HISTORY: r o torsion, left ovary Exam: 1. Pelvic ultrasound, transabdominal and transvaginal evaluation. 2. Duplex ultrasound of the ovaries. Comparison: CT of the pelvis from earlier today. Findings: Patient has CT of the pelvis from earlier today demonstrated a multiloculated cystic structure within the pelvis in a patient is status post hysterectomy. Pelvic ultrasound is suggested. Transabdominal and transvaginal pelvic ultrasound study was performed. Urinary bladder is appropriately distended on the transabdominal images. Uterus is surgically absent. No mass lesion seen at the vaginal cuff. Right ovary measures 2.1 x 3.6 x 2.1 cm in size. The right ovary is unremarkable in echotexture without mass lesion. Left ovary measures 4.5 x 4.3 x 3.7 cm in size. Thick-walled cyst within the left ovary measures up to 2.8 x 2.3 x 2.4 cm in size. There is echogenic debris within this cyst. No internal blood flow is seen within the cyst. Small volume free pelvic fluid. Duplex evaluation of the ovaries was performed. This included real-time grayscale, color spectral doppler analysis, and color Doppler flow imaging. There is documented blood flow to both ovaries. Impression: CT abnormality is related to complex thick-walled cyst within the left ovary. There is a broad differential diagnosis for this finding including hemorrhagic cyst, endometrioma, cystic neoplasm of the ovary, cystic dermoid, or tubo-ovarian abscess. Clinical correlation advised. Follow up pelvic ultrasound in 3-6 months suggested to ensure resolution. This document has been electronically signed by: Burton Weathers MD on 06/03/2024 04:00:27
--- NOTE | ~2024-06-02 | CT_ITS ---
CLINICAL HISTORY: RLQ pain Exam: CT abdomen and pelvis with intravenous contrast. Comparison: None. Findings: CT abdomen: Lung bases are clear. No acute bony lesions. Gallbladder is surgically absent. Minor postcholecystectomy ectasia of the intrahepatic and extrahepatic biliary tree. No discrete intraluminal filling defects within the common bile duct. No focal hepatic lesions. Spleen, pancreas, and adrenal glands are unremarkable. There is a 3 mm calculus within the upper pole of the right kidney. No hydronephrosis or perinephric stranding. No right ureteral calculi. Left kidney is unremarkable. Postsurgical change of the stomach. Small hiatal hernia. No dilated small bowel. Few of the small bowel loops are fluid-filled. Small mesenteric lymph nodes all measuring less than 5 mm in short axis. Fat containing umbilical hernia. CT pelvis: No findings of appendicitis. No colonic wall thickening or pericolonic inflammatory stranding. Patient has undergone prior hysterectomy. The multiloculated cystic structure within the mid to anterior aspect of the pelvis measuring 6.4 x 4.8 cm in size. Few soft tissue components are identified within this, possibly normal left ovarian parenchyma. No adjacent inflammatory stranding. No free fluid or free air. Impression: 1. No CT findings of appendicitis. 2. Multiloculated cystic structure within the pelvis, likely arising from the left ovary. Given its size, pelvic ultrasound suggested for further evaluation. 3. Nonobstructing right renal calculus. This document has been electronically signed by: Burton Weathers MD on 06/03/2024 02:37:50
[2024-06-02 23:19] VITALS: BP 138/103; PULSE 90; RESP 20; TEMP 36.4; O2SAT 100; BMI 31.7
[2024-06-02 23:33] LABS: Basophils Percent Auto 0.2 % (0-2); Eosinophils Percent Auto 0.1 % (0-4); Hematocrit 37.3 % (37.0-47.0); Hemoglobin 13.5 g/dl (12.0-16.0); Imm Gran Abs Auto 0.05 X10*3/uL (0.00-0.03); Imm Gran Pct Auto 0.3 % (0.0-0.4); Lymphocytes Absolute Auto 1.6 X10*3/uL (1.2-4.9); Lymphocytes Percent Auto 10.8 % (20-40); MANUAL DIFF FLAG NO; Mean Corpuscular HGB Conc 36.2 g/dl (31.0-35.0); Mean Corpuscular Hemoglobin 30.3 pg (27.0-33.0); Mean Corpuscular Volume 83.6 fL (80.0-98.0); Mean Platelet Volume 9.6 fL (9.4-12.3); Monocytes Absolute Auto 0.8 X10*3/uL (0.1-1.2); Monocytes Percent Auto 5.4 % (2-11); Neutrophils Absolute Auto 12.6 x10*3/uL (2.0-8.3); Neutrophils Percent Auto 83.2 % (45-73); Platelet Count 320 X10*3/uL (160-400); Red Blood Count 4.46 X10*6/uL (4.20-5.50); Red Cell Distribution Width 12.5 % (11.0-16.0); White Blood Count 15.2 X10*3/uL (4.8-10.8)
[2024-06-02 23:55] LABS: Alanine Aminotransferase 17 U/L (0-31); Albumin Level 4.1 g/dL (3.5-5.0); Alkaline Phosphatase 72 U/L (39-117); Anion Gap 13 (12-20); Aspartate Amino Transferase 30 U/L (5-31); Bilirubin Total 0.5 mg/dL (0.0-1.0); Blood Urea Nitrogen 10 mg/dL (9-16); Calcium 9.2 mg/dL (8.4-10.2); Carbon Dioxide 27 mmol/L (22-29); Chloride 104 mmol/L (96-108); Estimated Glomerular Filt Rate > 60; Glucose Random 120 mg/dL (60-115); HCG Quantitative < 2 mIU/mL; Lipase 23 U/L (8-78); Potassium 4.3 mmol/L (3.3-5.1); Sodium 140 mmol/L (135-145)
[2024-06-03 00:02] VITALS: BP 141/87; PULSE 87; RESP 16; TEMP 36.4; O2SAT 97
[2024-06-03 00:19] LABS: Appearance Urine Clear; Color Urine Yellow; Glucose Urine UA Negative (Negative); Leukocyte Esterase Urine Negative (Negative); Nitrite Urine Negative (Negative); PH 7.5 (5.0-9.0); Urine Blood Negative (Negative); Urine Ketones 80 mg/dL (Negative); Urine Protein Negative (Neg-Trace)
--- OUTSIDE RECORDS SUMMARY | 2024-06-03 00:33 | XMS_ITS ---
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 ?Marital status: single. 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 * Medications:?TakingZofran V icodin BuSpar Voltaren 1 % Gel as directed Externally Cetirizine HCl 10 MG Tablet 1 tablet Orally Once a daycloNIDine HCl Probiotic Multivitamin traMADol HCl 50 MG Tablet 1 tablet as needed Orally Every 6 hours as neededPhysical Therapy . . . . 2-3x/weekWork Note . . . . Patient to return to work multimedia authoring specialist without restrictionsOndansetron HCl 4 MG Tablet Disintegrating [...] . . Patient to return to work multimedia authoring specialist without restrictionsTaking Ondansetron HCl 4 MG Tablet [...] ray : Foot, left 3V * Procedure Codes:?27047 X-RAY EXAM OF LEFT FOOT 3V, Modifiers: [...] Snell DPM Date:?01/2024 Generated for Tatiana puckett/Misti/Damián on:?06/03/2024 12:32 AM EDT History and Physical Notes * HPI [...]
--- OUTSIDE RECORDS SUMMARY | 2024-06-03 00:33 | XMS_ITS | Patient Health Record ---
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) Active confirmed Problem Acquired hallux valgus (88951484) Acquired hallux interphalangeus of left foot (M20.12) [...] Insured Coverage Start Date Coverage End Date [facility] [address] [place] [address] [id number] Charley Aguilar Self - patient is the insured Medical (General) History Medical History History ICD Code Gall bladder problems Headaches/Migraines Hiatal hernia Chicken pox Surgical History Surgery Date(Month/Year) gall bladder 1993 tonsillectomy 1996 hysterectomy 2019 VSG 2020 Antony bunionectomy left foot 09/27/2021 Vasquez Osteotomy L, Mod David Regine
--- OUTSIDE RECORDS SUMMARY | 2024-06-03 00:33 | XMS_ITS ---
Author Organization 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 ?Marital status: single. 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 * Medications:?TakingCetirizin e HCl 10 MG Tablet 1 tablet Orally Once a daycloNIDine HCl Probiotic Multivitamin Work Note . . . . Patient to return to work multimedia editor without restrictionsPhysical Therapy . . . Pt [...] . Patient to return to work multimedia editor without restrictionsTaking Physical Therapy . . . [...] ray : Foot, left 3V * Procedure Codes:?33741 X-RAY EXAM OF LEFT FOOT 3V, Modifiers: [...] Snell DPM Date:? Generated for Tatiana puckett/Misti/Damián on:?06/03/2024 12:32 AM [...]
[2024-06-03] MEDS: ondansetron HCL 4 MG/2 ML VIAL IVPUSH ×2 (01:13→03:41)
[2024-06-03] MEDS: Morphine Sulfate 4 MG/ML CARTRIDGE IVPUSH ×2 (01:13→02:18)
[2024-06-03] MEDS: 0.9 % Sodium Chloride 1,000 ML 999 ML IV (01:19)
[2024-06-03] MEDS: iohexoL 350 MG/ML 100 ML INFUS..BTL 85 ML IV (01:30)
--- NOTE | 2024-06-03 02:53 | ED.ABDPAIN ---
HPI - Abdominal Pain General Chief Complaint: Abdominal Pain Stated Complaint: appendix pain Time Seen by Provider: 06/03/24 01:01 Source: patient Limitations: no limitations History of Present Illness ED Provider: Imani Higginbotham PA-C HPI narrative: 48-year-old female with a history of obesity, status post laparoscopic sleeve gastrectomy, migraine, anxiety who presents with acute onset abdominal pain. Patient states she developed sudden right lower abdominal discomfort. The pain radiates across the abdomen, described as severe labor pains. Pain worse with movement and walking. Associated nausea vomiting. Denies dysuria, hematuria, fever, diarrhea. Related Data Previous Rx's ?Medication ?Instructions ?Recorded thiamine HCl (vitamin B1) 100 mg 100 mg PO DAILY 90 days #90 tabs 11/26/23 tablet valacyclovir 500 mg tablet 500 mg PO DAILY #90 tabs 11/26/23 bupropion HCl 300 mg 24 hr tablet, 300 mg PO QAM #90 tabs 01/28/24 extended release buspirone 10 mg tablet 10 mg PO TID #90 tabs 04/01/24 celecoxib 200 mg capsule 200 mg PO BID #180 caps 04/01/24 tramadol 50 mg tablet 50 mg PO BEDTIME 14 days #14 tabs 05/13/24 clonidine HCl 0.2 mg tablet 0.2 mg PO DAILY #90 tabs 05/14/24 phentermine 30 mg capsule 30 mg PO DAILY #30 caps 05/25/24 ondansetron 4 mg disintegrating 4 mg PO Q6H PRN nausea and 06/03/24 tablet vomiting #10 tabs tramadol 50 mg tablet 50 mg PO Q6H PRN pain #16 tabs 06/03/24 Allergies Allergy/AdvReac Type Severity Reaction Status Date / Time latex [Latex] Allergy Severe SWELLING,IT Verified 06/02/24 23:21 BRODY codeine [CODEINE] Allergy Intermediate N/V Verified 06/02/24 23:21 levofloxacin [From Levaquin] Allergy Mild N/V Verified 06/02/24 23:21 Review of Systems Review of Systems Yes all other systems are reviewed and are negative Constitutional: Denies fatigue and Denies fever(s) Cardiovascular: Denies chest pain and Denies dyspnea Respiratory: Denies cough and Denies dyspnea Gastrointestinal: Reports abdominal pain, Denies diarrhea, Reports nausea and Reports vomiting Genitourinary: Denies dysuria and Denies flank pain Musculoskeletal: Denies back pain Endocrine: Denies fatigue PMFSH Past Medical History Attestation statement: The following information was validated with the patient. Medical History Constipation Generalized anxiety disorder Intestinal malabsorption Overweight Surgical History S/P excision of ganglion cyst S/P tonsillectomy S/P RIA (total abdominal hysterectomy) Hx of breast biopsy Hx laparoscopic cholecystectomy History of sleeve gastrectomy Family History Family History Father No problems noted. Mother Stroke Son No problems noted. Daughter No problems noted. 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 Cognitive needs: No Hearing needs: No Vision needs: No Physical Exam ED Vital Signs: Vital Signs - 24 hr 06/02/24 23:19 06/03/24 00:02 06/03/24 03:53 Temperature 97.6 F 97.6 F 97.6 F Pulse Rate 90 87 87 Respiratory Rate 20 16 17 Blood Pressure 138/103 H 141/87 H 122/77 Pulse Oximetry 100 97 99 Oxygen Delivery Method Room Air Room Air Room Air 06/03/24 06:18 Temperature 97.9 F Pulse Rate 85 Respiratory Rate 16 Blood Pressure 115/72 Pulse Oximetry 99 Oxygen Delivery Method Room Air BMI result Body Mass Index 31.7 Const Other: Alert, appears uncomfortable Orientation/consciousness: patient oriented x3 Resp Effort & Inspection: normal respiratory effort Cardio Other: Normal peripheral perfusion GI Other: Abdomen is soft, nondistended, mild to moderate tenderness across entire lower abdomen, with mild involuntary guarding in right lower quadrant Skin Other: Warm dry no rash Neuro General: patient oriented x3, gait normal, no focal motor deficits and CN's II-XI intact bilaterally Psych Other: Cooperative Course Course Course Narrative: Sign out to night team pending transvaginal ultrasound and final disposition Reevaluation(s) Reevaluation #1: Dr. Park: The patient was signed out to me by the physician communications assistant pending the results of an ultrasound to follow up on the patient's CAT scan. The CAT scan had showed a large left ovary. The pelvic ultrasound also shows an abnormal large left ovary with cystic findings with a large differential diagnosis. There seemed to be good blood flow to both ovaries on the pelvic ultrasound. I spoke to the on-call sales assistant entertainment and media covering for the patient's sales assistant entertainment and media. I had had some concern for the possibility of intermittent torsion. The patient had had abrupt onset pain earlier in the evening. She required 2 doses of IV narcotics while in the emergency room. She was observed. She had no recurrence of the severe pains she had had originally. The ultrasound showed good flow. The patient was therefore observed for several hours without any significant recurrence of pain. She did have some recurrence of nausea for which she was given metoclopramide. The covering sales assistant entertainment and media and I agreed that if the patient was not having a return of pain that discharge was reasonable for an outpatient workup of the abnormal left ovary. The patient seems eager for discharge. The patient's sales assistant entertainment and media is Dr. Annelise Hayes. The patient will be discharged with a prescription for tramadol and for ondansetron. The patient will contact Dr. Hayes's office for a prompt follow up appointment. If she is worse before then she should probably go directly to the [facility] Emergency room or [facility]. Time: 06:49 Medical Decision Making Medical Decision Making MDM Narrative: 48-year-old female with a history of obesity, status post laparoscopic sleeve gastrectomy, migraine, anxiety who presents with acute onset abdominal pain. Patient states she developed sudden right lower abdominal discomfort. The pain radiates across the abdomen, described as severe labor pains. Pain worse with movement and walking. Associated nausea vomiting. Denies dysuria, hematuria, fever, diarrhea. No relevant chronic issues History: Per patient I have considered the following differential diagnoses: Appendicitis, renal colic, torsion, sigmoid diverticulitis Plan: Patient having focal right lower abdominal discomfort, concerning for acute appendicitis. We will be obtaining a CT scan. I am also considering torsion, if the CT scan is negative, she will have a transvaginal ultrasound. Giving Zofran, morphine and fluid. Screening labs were completed from triage. Doubtful to be renal colic, the patient's pain was never in the flank, she has no related symptoms. Could be sigmoid diverticulitis, however she has no diarrhea. CT pending. I have independently reviewed the following tests: Labs: Leukocytosis with left shift, not anemic, no electrolyte abnormality, urine not infected CT abd pelvis: Impression: 1. No CT findings of appendicitis. 2. Multiloculated cystic structure within the pelvis, likely arising from the left ovary. Given its size, pelvic ultrasound suggested for further evaluation. 3. Nonobstructing right renal calculus. TVUS: Lab Data 06/02/24 23:26 06/02/24 23:26 Labs: Lab Results 06/02/24 06/03/24 Range/Units 23:26 00:09 WBC 15.2 H (4.8-10.8) X10*3/uL RBC 4.46 (4.20-5.50) X10*6/uL Hgb 13.5 (12.0-16.0) g/dl Hct 37.3 (37.0-47.0) % MCV 83.6 (80.0-98.0) fL MCH 30.3 (27.0-33.0) pg MCHC 36.2 H (31.0-35.0) g/dl RDW 12.5 (11.0-16.0) % Plt Count 320 (160-400) X10*3/uL MPV 9.6 (9.4-12.3) fL Immature Gran % (Auto) 0.3 (0.0-0.4) % Neut % (Auto) 83.2 H (45-73) % Lymph % (Auto) 10.8 L (20-40) % [place] % (Auto) 5.4 (2-11) % Eos % (Auto) 0.1 (0-4) % Baso % (Auto) 0.2 (0-2) % Lymph # (Auto) 1.6 (1.2-4.9) X10*3/uL [place] # (Auto) 0.8 (0.1-1.2) X10*3/uL Eos # (Auto) 0.0 (0.0-0.4) X10*3/uL Baso # (Auto) 0.0 (0.0-0.2) X10*3/uL Abs Immat Gran (auto) 0.05 H (0.00-0.03) X10*3/uL Absolute Neuts (auto) 12.6 H (2.0-8.3) x10*3/uL Absolute Nucleated RBC 0.000 (0.0-0.012) X10*3/uL Nucleated RBC % (auto) 0.0 (0.0-0.2) /100WBC Sodium 140 (135-145) mmol/L Potassium 4.3 (3.3-5.1) mmol/L Chloride 104 (96-108) mmol/L Carbon Dioxide 27 (22-29) mmol/L Anion Gap 13 (12-20) BUN 10 (9-16) mg/dL Creatinine 0.82 (0.5-1.4) mg/dL Estim Creat Clear Calc 93.0 Estimated GFR > 60 Random Glucose 120 H (60-115) mg/dL Calcium 9.2 (8.4-10.2) mg/dL Total Bilirubin 0.5 (0.0-1.0) mg/dL AST 30 (5-31) U/L ALT 17 (0-31) U/L Alkaline Phosphatase 72 (39-117) U/L Total Protein 7.0 (6.5-8.0) g/dL Albumin 4.1 (3.5-5.0) g/dL Lipase 23 (8-78) U/L Beta HCG, Quant < 2 mIU/mL Urine Color Yellow Urine Appearance Clear Urine pH 7.5 (5.0-9.0) Ur Specific [place] 1.020 (1.005-1.025) Urine Protein Negative (Neg-Trace) mg/dL Urine Glucose (UA) Negative (Negative) mg/dL Urine Ketones 80 (Negative) mg/dL Urine Blood Negative (Negative) Urine Nitrite Negative (Negative) Ur Leukocyte Esterase Negative (Negative) Medications Administered Discontinued Medications Generic Name Dose Route Start Last Admin Trade Name Freq PRN Reason Stop Dose Admin Diphenhydramine HCl 12.5 mg 06/03/24 06:05 06/03/24 06:17 Diphenhydramine Hcl 50 Mg/Ml Vial IVPUSH 06/03/24 06:06 12.5 mg ONCE ONE Administration Sodium Chloride 1,000 mls @ 999 mls/hr 06/03/24 01:15 06/03/24 03:06 Ns IV 06/03/24 02:15 Infused .Q1H1M DAVID Infusion Iohexol 85 ml 06/03/24 01:30 06/03/24 01:30 Iohexol 350 Mg/Ml 100 Ml Infus..Btl IV 06/03/24 01:31 85 ml ONCE ONE Administration Ketorolac Tromethamine 10 mg 06/03/24 06:05 06/03/24 06:17 Ketorolac Tromethamine 15 Mg/Ml Vial IVPUSH 06/03/24 06:06 10 mg ONCE ONE Administration Metoclopramide HCl 10 mg 06/03/24 06:05 06/03/24 06:18 Metoclopramide Hcl 10 Mg/2 Ml Vial IVPUSH 06/03/24 06:06 10 mg ONCE ONE Administration Morphine Sulfate 4 mg 06/03/24 01:07 06/03/24 01:13 Morphine Sulfate 4 Mg/Ml Cartridge IVPUSH 06/03/24 01:08 4 mg ONCE ONE Administration Protocol Morphine Sulfate 4 mg 06/03/24 02:11 06/03/24 02:18 Morphine Sulfate 4 Mg/Ml Cartridge IVPUSH 06/03/24 02:12 4 mg ONCE ONE Administration Protocol Ondansetron HCl 4 mg 06/03/24 01:07 06/03/24 01:13 Ondansetron Hcl 4 Mg/2 Ml Vial IVPUSH 06/03/24 01:08 4 mg ONCE ONE Administration Ondansetron HCl 4 mg 06/03/24 03:37 06/03/24 03:41 Ondansetron Hcl 4 Mg/2 Ml Vial IVPUSH 06/03/24 03:38 4 mg ONCE ONE Administration Discharge Plan Discharge Clinical Impression: Abdominal pain, Left ovarian enlargement Patient Disposition: Home, Self-Care Additional Instructions: Your CAT scan and ultrasound shows that you have an enlargement of your left ovary. The exact significance of this is hard to determine and you will need to follow up with your sales assistant entertainment and media. I spoke to the on-call sales assistant entertainment and media covering for your sales assistant entertainment and media and they agree that if you are feeling reasonably well right now that letting you go home to contact the office for outpatient follow up is reasonable. I have sent a prescription for tramadol and ondansetron to your pharmacy. If at any point you feel significantly worse you should be seen in the emergency room again, I think it would be better for you to go to [facility] then to return here since we do not have Gynecology services at the moment. Prescriptions: New tramadol 50 mg tablet 50 mg PO Q6H PRN (Reason: pain) Qty: 16 0RF ondansetron 4 mg tablet,disintegrating 4 mg PO Q6H PRN (Reason: nausea and vomiting) Qty: 10 0RF No Action bupropion HCl 300 mg tablet extended release 24 hr 300 mg PO QAM Qty: 90 0RF clonidine HCl 0.2 mg tablet 0.2 mg PO DAILY Qty: 90 2RF celecoxib 200 mg capsule 200 mg PO BID Qty: 180 0RF buspirone 10 mg tablet 10 mg PO TID Qty: 90 2RF tramadol 50 mg tablet 50 mg PO BEDTIME 14 Days Qty: 14 0RF thiamine HCl (vitamin B1) 100 mg tablet 100 mg PO DAILY 90 Days Qty: 90 2RF valacyclovir 500 mg tablet 500 mg PO DAILY Qty: 90 2RF phentermine 30 mg capsule 30 mg PO DAILY Qty: 30 0RF Rx Instructions: must administer 2 hours after breakfast Referrals: Annelise Hayes DO [Physician] - Print Language: Malawian
[2024-06-03 03:53] VITALS: BP 122/77; PULSE 87; RESP 17; TEMP 36.4; O2SAT 99
[2024-06-03] MEDS: diphenhydrAMINE HCL 50 MG/ML VIAL 12.5 MG IVPUSH (06:17)
[2024-06-03] MEDS: Ketorolac Tromethamine 15 MG/ML VIAL 10 MG IVPUSH (06:17)
[2024-06-03 06:18] VITALS: BP 115/72; PULSE 85; RESP 16; TEMP 36.6; O2SAT 99
[2024-06-03] MEDS: Metoclopramide HCl 10 MG/2 ML VIAL IVPUSH (06:18)
[2024-06-03 06:58] VITALS: BP 115/72; PULSE 85; RESP 16; TEMP 36.6; O2SAT 99
== END 2024-06-03 07:07 | disposition home or self-care (01) ==
PROVIDERS: Emergency Provider Emergency Medicine; PCP Nurse Practitioner Family
DX: R10.31 Right lower quadrant pain (principal); Q50.39 Other congenital malformation of ovary; F41.1 Generalized anxiety disorder; E66.9 Obesity, unspecified; Z68.31 Body mass index [BMI] 31.0-31.9, adult; Z79.899 Other long term (current) drug therapy; Z98.84 Bariatric surgery status
CPT/HCPCS: 36415; 74177; 76830; 76856; 80053; 81003; 83690; 84702; 85025; 93975; 96361; 96374; 96375; 96376; 99284; J1200; J1885; J2270; J2405; J2765; Q9967

== ENCOUNTER → 2024-06-03 01:07 | Outpatient (BNV) | payer OTHER, SELFPAY | PROVIDERS: Emergency Provider Emergency Medicine; PCP Nurse Practitioner Family; Visit Provider Radiology Diagnostic Radiology | DX: N20.0 Calculus of kidney (principal); R19.07 Generalized intra-abdominal and pelvic swelling, mass and lump; N83.202 Unspecified ovarian cyst, left side | CPT/HCPCS: 74177; 76830; 76856 ==

== ENCOUNTER 2024-07-08 11:45 | Outpatient (AMB) | payer OTHER, SELFPAY ==
--- NOTE | 2024-07-08 11:38 | MHC.OFFVISWM ---
VS Expanded 07/08/24 11:40 Height 5 ft 5 in Weight 182 lb 4 oz BMI 30.3 Intake Visit Reasons: (TV) PO LSG 09/09/19 Allergies latex [Latex] Allergy (Severe, Verified 06/02/24 23:21) SWELLING,ITCHING codeine [CODEINE] Allergy (Intermediate, Verified 06/02/24 23:21) N/V levofloxacin [From Levaquin] Allergy (Mild, Verified 06/02/24 23:21) N/V Medication List - Last Reconciled 07/08/24 by AMBER Galarza bupropion HCl XL 300 mg PO QAM buspirone 10 mg PO TID celecoxib 200 mg PO BID clonidine HCl 0.2 mg PO DAILY ondansetron 4 mg PO Q6H PRN phentermine 30 mg PO DAILY thiamine HCl (vitamin B1) 100 mg PO DAILY 90 days tramadol 50 mg PO Q6H PRN tramadol 50 mg PO BEDTIME 14 days valacyclovir 500 mg PO DAILY HPI Comments Details: This?is a?48?yo F who is s/p LSG 09/09/2019. Weight loss of 11.6lbs since last OV 6w ago. No complaints of nausea, emesis, abdominal pain or reflux, or constipation. Has been on phentermine, BP has been well controlled except when she was recently in ER for possible ovarian torsion. Present meal plan includes: fair life 30 g shake Zone perfect bar Meal 7 forks protein and 7 forks vegetables -given at last OV Exercise routine includes: has a walking pad at home PFSH Medical History Constipation Generalized anxiety disorder Intestinal malabsorption Overweight Surgical History S/P excision of ganglion cyst S/P tonsillectomy S/P RIA (total abdominal hysterectomy) Hx of breast biopsy Hx laparoscopic cholecystectomy History of sleeve gastrectomy Family History Father No problems noted. Mother Stroke Son No problems noted. Daughter No problems noted. 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84 - Bariatric surgery status Category: Surgical Plan Doing well on phentermine, BP controlled. She will continue to text me weekly with BP readings. Will refill 1 month of phentermine. Encouraged pt to reach out via text with any additional questions. RTC 3mo. Medications: Refilled phentermine must administer 2 hours after breakfast 30 mg PO DAILY 30 caps 0RF
[2024-07-08 11:40] VITALS: BMI 30.3
--- OUTSIDE RECORDS SUMMARY | 2024-07-08 12:59 | XMS_ITS ---
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 ?Marital status: single. 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 * Medications:?TakingCetirizin e HCl 10 MG Tablet 1 tablet Orally Once a daycloNIDine HCl Probiotic Multivitamin Work Note . . . . 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 . . Pt [...] . . Patient to return to work time stamp assembler without restrictionsTaking Physical Therapy . . . [...] ray : Foot, left 3V * Procedure Codes:?67759 X-RAY EXAM OF LEFT FOOT 3V, Modifiers: [...] Snell DPM Date:? Generated for Tatiana puckett/Misti/Damián on:?07/08/2024 12:59 PM EDT History and Physical Notes * [...]
--- OUTSIDE RECORDS SUMMARY | 2024-07-08 12:59 | XMS_ITS ---
Author Organization [facility] Address [address] [place] [address] Care Team Providers Care Parking Garage Manager Name Role Phone Andreas SOFTWARE CONFIGURATION SPECIALIST, [facility] Primary Care Provider Unavail able Eduarda Snell Unavailable [phone] REASON FOR VISIT Work Note Medications Medication SIG (Take, Route, Frequency, Duration) Notes Start Date End Date Status Work Note . . . Patient can retu rn to work on Apr 09, 2023 03/29/2023 Active Encounters Encounter Location Date Provider Diagnosis [facility] [address] [place] [address] 03/29/2023 Eduarda Snell Plan Of Treatment Medication Medication Name Sig Start Date Stop Date Notes Work Note . . . Patient can retu rn to work on Apr 09, 2023 03/29/2023 Progress Notes * Charley AGUILAR RDOB:[birth year] (47 yo F)Acc No.[id number]:03/29/2023 Patient:?Charley Aguilar :1975???Age:47 Y???Sex:Female Address:[address] [place] [phone] * Refills? Start Work Note ., ., ., ., Patient can return to work on Apr 09, 2023 * true * Date:? Generated for Tatiana puckett/Misti/eTransmitting on:?07/08/2024 12:59 PM EDT
--- OUTSIDE RECORDS SUMMARY | 2024-07-08 12:59 | XMS_ITS | Patient Health Record ---
Author Organization [facility] Address [address] [place] [address] Care Team Providers Care Byproducts Operator Name Role Phone Andreas QUALITY INTERN, [place] Primary Care Provider Unavail able Eduarda Snell Unavailable [phone] Allergies Allergen (clinical drug ingredient) Drug/Non Drug [...] . 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) Active confirmed Problem Acquired hallux interphalangeus of left foot (M20.12) [...] Insured Coverage Start Date Coverage End Date [facility] [address] [facility] [place], [place] [address] [phone] [id number] Charley Aguilar Self - patient is the insured Medical (General) History Medical History History ICD Code Gall bladder problems Headaches/Migraines Hiatal hernia Chicken pox Surgical History Surgery Date(Month/Year) gall bladder 1993 tonsillectomy 1995 hysterectomy 2018 VSG 2020 Antony bunionectomy left foot 09/27/2021 Vasquez Osteotomy L, Mod David L
--- OUTSIDE RECORDS SUMMARY | 2024-07-08 12:59 | XMS_ITS | Clinical Summary ---
Author Organization [facility] Address [address] [place] [address] Care Team Providers Care Machine Burrer Name Role Phone Doroteo Feliz Primary Care [...] BASELINE HEALTH EXAM 40-64 2017 MAMMOGRAM 2017 BMI CHECK/ADVISE 02/19/2024 INFLUENZA (Season Ended) 2024 PNEUMOCOCCAL VACCINE FOR HIGH RISK PATIENTS (#1) 10/15 Care Teams Machine Burrer Relationship Specialty Start Date End Date Doroteo Feliz PCP - General Internal Medicine 11/01/15
--- OUTSIDE RECORDS SUMMARY | 2024-07-08 12:59 | XMS_ITS ---
Author Organization [facility] [place] Address [address] [place] [address] Care Team Providers Care Museum Educator Name Role Phone Andreas ALAN, Lenn[place] Primary Care Provider Unavail able Eduarda Snell Unavailable [phone] Allergies Allergen (clinical drug ingredient) Drug/Non Drug [...] . 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 ?Marital status: single. 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 * Medications:?TakingZofran V icodin BuSpar Voltaren 1 % Gel as directed Externally Cetirizine HCl 10 MG Tablet 1 tablet Orally Once a daycloNIDine HCl Probiotic Multivitamin traMADol HCl 50 MG Tablet 1 tablet as needed Orally Every 6 hours as neededPhysical Therapy . . . . 2-3x/weekWork Note . . . . Patient to return to work interactive multimedia designer without restrictionsOndansetron HCl 4 MG Tablet Disintegrating [...] . . Patient to return to work interactive multimedia designer without restrictionsTaking Ondansetron HCl 4 MG Tablet [...] ray : Foot, left 3V * Procedure Codes:?85730 X-RAY EXAM OF LEFT FOOT 3V, Modifiers: [...] Snell DPM Date:?01/2024 Generated for Tatiana puckett/Misti/Damián on:?07/08/2024 12:59 PM EDT History and Physical Notes * HPI (History of Present Illness) Category Sub-Category Detail Notes Category Not es Post-op The patient presents for post-op of Left Mod David , Bunionectomy and Avsquez Osteotomy Pt presents WB left withcast boot. [...]
== END 2024-07-08 11:49 | disposition home or self-care (01) ==
LOC: HO.HBS 11:45
PROVIDERS: PCP Nurse Practitioner Family; Visit Provider Physician Assistant Surgical
DX: E66.9 Obesity, unspecified (principal); Z68.30 Body mass index [BMI] 30.0-30.9, adult; Z90.3 Acquired absence of stomach [part of]; Z98.84 Bariatric surgery status
CPT/HCPCS: 98012

== ENCOUNTER → 2024-07-08 11:45 | Outpatient (BNVA) | payer OTHER, SELFPAY | PROVIDERS: PCP Nurse Practitioner Family; Visit Provider Physician Assistant Surgical ==

== ENCOUNTER 2024-07-15 08:36 | Outpatient (REF) | payer OTHER, SELFPAY ==
--- NOTE | ~2024-07-15 | XR_ITS ---
EXAMINATION: XR SCAPULA, RIGHT CLINICAL INFORMATION: S42.141A - Displaced fracture of glenoid cavity of scapula, right should... COMPARISON: None available. TECHNIQUE: AP and scapular Y views of the right scapula. FINDINGS: Minimally displaced mildly comminuted intra-articular glenoid fracture traversing the base of the coracoid process. Fracture lines are still visible but sclerotic along their margins with some periosteal new bone formation. Findings are consistent with continued healing. No articular step off. Mild subluxation of the AC joint is stable. No loss of the subacromial space. Remainder the bones and soft tissues appear normal. XR/XR scapula RT IMPRESSION: Healing fracture of the glenoid in stable alignment without significant displacement. Electronically signed by: Tevin Valenzuela MD 07/15/2024 03:07 PM EDT
--- OUTSIDE RECORDS SUMMARY | 2024-07-15 08:52 | XMS_ITS ---
Author Organization [facility] Address [address] [place] [address] Care Team Providers Care Company Secretary Name Role Phone Andreas FUEL CELL ENGINEER, [facility] Primary Care Provider Unavail able Eduarda Snell Unavailable [phone] REASON FOR VISIT Work Note Medications Medication SIG (Take, Route, Frequency, Duration) Notes Start Date End Date Status Work Note . . . Patient can retu rn to work on Apr 09, 2023 03/29/2023 Active Encounters Encounter Location Date Provider Diagnosis [facility] [address] [place] [address] 03/29/2023 Eduarda Snell Plan Of Treatment Medication Medication Name Sig Start Date Stop Date Notes Work Note . . . Patient can retu rn to work on Apr 09, 2023 03/29/2023 Progress Notes * Charley AGUILAR RDOB:[birth year] (47 yo F)Acc No.[id number]:03/29/2023 Patient:?Charley Aguilar :1975???Age:47 Y???Sex:Female Address:[address] [place] [phone] * Refills? Start Work Note ., ., ., ., Patient can return to work on Apr 09, 2023 * true * Date:? Generated for Tatiana puckett/Misti/eTransmitting on:?07/15/2024 08:52 AM EDT
== END 2024-07-15 08:37 | disposition home or self-care (01) ==
LOC: HO.HOSX 08:36
PROVIDERS: Visit Provider Physician Assistant
DX: S42.141A Displaced fracture of glenoid cavity of scapula, right shoulder, initial encounter for closed fracture (principal)
CPT/HCPCS: 73010

== ENCOUNTER 2024-07-15 13:05 | Outpatient (AMB) | payer OTHER, SELFPAY ==
--- NOTE | 2024-07-15 13:13 | MHC.OFFVIS ---
Intake Visit Reasons: OV-RT shoulder glenoid fx f/u Intake Note: Charley is a 48 year old right hand dominant female who presents today for a follow up of non-displaced intra-articular glenoid fracture s/p recent sledding injury on 03/28/24. CT scan was discussed with patient, she was instructed to follow up at the end of June. Today patient reports that she continues to have a lot of pain, with a current pain level of 8 out of 10. Allergies latex [Latex] Allergy (Severe, Verified 07/15/24 13:13) SWELLING,ITCHING codeine [CODEINE] Allergy (Intermediate, Verified 07/15/24 13:13) N/V levofloxacin [From Levaquin] Allergy (Mild, Verified 07/15/24 13:13) N/V Medication List - Last Reconciled 07/15/24 by Ira Ferreira PA-C celecoxib 200 mg PO BID clonidine HCl 0.2 mg PO DAILY ondansetron 4 mg PO Q6H PRN phentermine 30 mg PO DAILY thiamine HCl (vitamin B1) 100 mg PO DAILY 90 days tramadol 50 mg PO Q6H PRN valacyclovir 500 mg PO DAILY HPI HPI OV-RT shoulder glenoid fx f/u: Details: 48-year-old female presents to the office today for three-month follow-up right glenoid fracture. Overall she is doing well as far as that injury goes however her pain continues with the right shoulder rotator cuff injury she currently has. She was supposed to undergo surgery for the right shoulder however this was postponed due to her glenoid injury. She is now at the point she is ready to proceed however she is waiting on resources from her work to become available. PFSH Medical History Constipation Generalized anxiety disorder Intestinal malabsorption Overweight Surgical History S/P excision of ganglion cyst S/P tonsillectomy S/P RIA (total abdominal hysterectomy) Hx of breast biopsy Hx laparoscopic cholecystectomy History of sleeve gastrectomy Family History Father No problems noted. Mother Stroke Son No problems noted. Daughter No problems noted. 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 No significant deficits with range of motion. She is neurovascularly intact. Results Reviewed Results Reviewed: X-rays of the right glenoid obtained in the office today show a nondisplaced intra-articular glenoid fracture with interval healing Assessment & Plan Assessment & Plan (1) Rotator cuff tear, right: Code(s): M75.101 - Unspecified rotator cuff tear or rupture of right shoulder, not specified as traumatic Category: Medical Qualifiers: Rotator cuff tear extent: unspecified tear extent Rotator cuff tear trauma status: unspecified whether traumatic Qualified Code(s): M75.101 - Unspecified rotator cuff tear or rupture of right shoulder, not specified as traumatic (2) Fracture of glenoid cavity of right scapula: Code(s): S42.141A - Displaced fracture of glenoid cavity of scapula, right shoulder, initial encounter for closed fracture Category: Medical Plan She will continue with activities as tolerated. I did give her a prescription for physical therapy for 2 work on a home program with rotator cuff and periscapular stabilization. I did inform her insurance may only authorized a certain amount of visits per year and if she is thinking of surgery later in the year she may want to reserve some of those appointments. She will contact our office when she wants to proceed with right shoulder arthroscopic rotator cuff repair with Dr. Sheehan. All questions were answered today. Orders: Orders PT Evaluation and Treatment Today M75.101 - Unspecified rotator cuff tear or rupture of right shoulder, not specified as traumatic, S42.141A - Displaced fracture of glenoid cavity of scapula, right shoulder, initial encounter for closed fracture XR scapula RT Today S42.141A - Displaced fracture of glenoid cavity of scapula, right shoulder, initial encounter for closed fracture Coding Level of Care Code Est Pt Level 3 (59963) Complex EM visit Add On G2211 Diagnoses Tear of right rotator cuff, unspecified tear extent, unspecified whether traumatic M75.101 Rotator cuff tear extent: unspecified tear extent Rotator cuff tear trauma status: unspecified whether traumatic Fracture of glenoid cavity of right scapula S42.141A
== END 2024-07-15 15:45 | disposition home or self-care (01) ==
LOC: HO.HOS 13:06
PROVIDERS: Visit Provider Physician Assistant
DX: M75.101 Unspecified rotator cuff tear or rupture of right shoulder, not specified as traumatic (principal); S42.141A Displaced fracture of glenoid cavity of scapula, right shoulder, initial encounter for closed fracture
CPT/HCPCS: 99213

== ENCOUNTER → 2024-07-15 13:11 | Outpatient (BNV) | payer OTHER, SELFPAY | PROVIDERS: Visit Provider Radiology Diagnostic Radiology | DX: S42.144D Nondisplaced fracture of glenoid cavity of scapula, right shoulder, subsequent encounter for fracture with routine healing (principal) | CPT/HCPCS: 73010 ==

== ENCOUNTER 2024-09-29 14:25 | Outpatient (AMB) | payer OTHER, SELFPAY ==
--- NOTE | 2024-09-29 14:39 | A.OFFVIS_ITS ---
VS Expanded 09/29/24 14:46 BP 124/77 Blood Pressure Location Rt brachial Blood Pressure Position Sitting Pulse 83 Pulse Source Pulse Oximeter Temp 97.0 F Temperature Source Temporal Artery Scan Pulse Oximetry 100 Oxygen Delivery Method Room Air Height 5 ft 5 in Weight 176 lb BMI 29.3 Body Fat % 35.5 Body Fat Mass 62.4 Fat Free Mass 113.6 Visceral Fat Rating 7.0 Body Water % 46.0 Body Water Mass 81.0 Muscle Mass/Score 107.8 Basal Metabolic Rate/Score 1,546 Intake Visit Reasons: OV PO LSG 09/09/19 Allergies latex (Latex) Allergy (Severe, Verified 09/29/24 14:43) SWELLING,ITCHING codeine (CODEINE) Allergy (Intermediate, Verified 09/29/24 14:43) N/V levofloxacin (From Levaquin) Allergy (Mild, Verified 09/29/24 14:43) N/V Medication List - Last Reconciled 09/29/24 by AMBER Galarza celecoxib 200 mg PO BID clonidine HCl 0.2 mg PO DAILY ondansetron 4 mg PO Q6H PRN phentermine 37.5 mg PO DAILY thiamine HCl (vitamin B1) 100 mg PO DAILY 90 days tramadol 50 mg PO Q6H PRN valacyclovir 500 mg PO DAILY HPI Comments Details: This?is a?48?yo F who is s/p LSG 09/09/2019. Weight loss of 6.4lbs since last OV 3mo ago. No complaints of nausea, emesis, abdominal pain or reflux, or constipation. Has been on phentermine, BP has been well controlled per pt although she has not texted me her BP readings consistently. Did take phentermine today and BP is ok. Does have dry mouth as a side effect. Present meal plan includes: fair life 30 g shake Zone perfect bar Meal 7 forks protein and 7 forks vegetables -given at last OV Exercise routine includes: has a walking pad at home PFSH Medical History (Updated 09/29/24 @ 15:09 by AMBER Galarza) Overweight Constipation Generalized anxiety disorder Intestinal malabsorption Surgical History S/P excision of ganglion cyst S/P tonsillectomy S/P RIA (total abdominal hysterectomy) Hx of breast biopsy Hx laparoscopic cholecystectomy History of sleeve gastrectomy Family History Father No problems noted. Mother Stroke Son No problems noted. Daughter No problems noted. 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 Pyramid nutrition info provided per pt request. Pt started phentermine in May, can continue through no longer than November. She has not been successful in achieving a healthy weight despite 3+ months of phentermine. Pt is interested in starting GLP1. Reviewed contraindications, discussed dosing. Discussed need for adequate protein intake while on GLP1s as well as frequent communication with our office. Pt will check in with me weekly and is aware that subsequent Rx will be dependent on frequent communication. If she is approved for Zepbound will d/c phentermine. RTC in November. Orders: Orders Ferritin Today Z98.84 - Bariatric surgery status TSH reflex Free T4 Today Z98.84 - Bariatric surgery status Vitamin B1 Today Z98.84 - Bariatric surgery status Zinc Today Z98.84 - Bariatric surgery status Comprehensive Met. Panel Today Z98.84 - Bariatric surgery status Complete Blood Count Auto Diff Today Z98.84 - Bariatric surgery status IRON PROFILE Today Z98.84 - Bariatric surgery status Hemoglobin A1c Today Z98.84 - Bariatric surgery status Insulin Today Z98.84 - Bariatric surgery status Vitamin D 25-OH Total Today Z98.84 - Bariatric surgery status C Reactive Protein Today Z98.84 - Bariatric surgery status Vitamin A Today Z98.84 - Bariatric surgery status Vitamin B12 and Folate Today Z98.84 - Bariatric surgery status Lipid Panel Today Z98.84 - Bariatric surgery status Medications: New tirzepatide (weight loss) (Zepbound) for 4 weeks 2.5 mg (0.5 mL) subcut QWEEK 2 mL 0RF
[2024-09-29 14:46] VITALS: BP 124/77; PULSE 83; TEMP 36.1; O2SAT 100; BMI 29.3
--- OUTSIDE RECORDS SUMMARY | 2024-09-29 15:20 | XMS_ITS | Encounter Summary ---
Author Organization [facility] Address [address] [place] [address] Care Team Providers Care Construction Contractor Name Role Phone Doroteo Feliz Primary Care Provider Unavailabl e Reason for Referral * Non BILL (Urgent) - Authorized/Booked Specialty Diagnoses / Procedures Referred By Contac t Referred To Contact WOOD FLOOR LAYER Diagnoses Breast feeding status of mother Procedures REFERRAL TO BREAST FEEDING MEDICINE Wanda Coon MD [address] [place] [id number] Breast Feeding/[address] [place] [address] Referral ID Status Reason Start Date Expiration Date V isits Requested Visits Authorized TODAY/TOMORRO W Authorized/ Booked 11/02/2015 11/01/2016 1 1 Encounter Details Date Type Department Care Team Description 11/02/2015 Orders Only Pediatrics - [address] [address] Wanda Coon MD Breast feeding status of [...] mother documented in this encounter Care Teams Construction Contractor Relationship Specialty Start Date End Date Doroteo Feliz PCP - General Internal Medicine 11/01/15 documented as of this encounter
--- OUTSIDE RECORDS SUMMARY | 2024-09-29 15:20 | XMS_ITS | Patient Health Record ---
Author Organization [facility] Address [address] [place] [address] Care Team Providers Care Lead Level Designer Name Role Phone Andreas HOSPITALITY HOST, [place] Primary Care Provider Unavail able Eduarda Snell Unavailable [phone] Allergies Allergen (clinical drug ingredient) Drug/Non Drug [...] as needed Orally Every 6 hours as needed; Duration: 7 days 10/18/2021 Not-Osito ing Physical Therapy . . . 2-3x/week; Durat ion: 3-4 weeks 10/19/2021 Not-Taking BuSpar Not-Taking Medrol kimmie 4mg as directed orally a s directed; Duration: 6 days 01/25/2023 Not-Taking Voltaren 1 % as directed Externally Not-Taking Amoxicillin-Pot Clavulanate 875 875-125 MG one tab Orally every 12 hrs; Duration: 5 days 01/25/2023 Not-Taking Cetirizine HCl 10 MG 1 tablet Orally Onc e a day; Duration: 30 day(s) Active HYDROcodone-Acetaminophe n 5-325 MG 1-2 tablet as needed Orally every 4-6 hrs; Duration: 10 days 01/29/2023 Not-Taking cloNIDine HCl Active Physical Therapy . . Pt had significant scar tissue and contracture after previous bunion surgery, second surgery done 01/17/23-ROM 1st MPJ LEFT with gait training 2-3x/week Active Work Note . . . 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 Zofran Not-Taking Ondansetron HCl 4 MG 1-2 tablet Orally O nce a day as needed for nausea; Duration: 10 days 09/29/2021 Not-Taking Vicodin Not-Taking Gabapentin 300 MG 1 capsule Orally Twi ce a day; Duration: 30 day(s) 09/28/2021 Not-Osito ing Immunizations Vaccine Route Administration Date Status Comme [...] Status Risk Notes Problem Acquired hallux valgus (29450634) Hallux valgus (acquired), left foot (M20.12) Active confirmed Problem Contracture, lef t foot (M24.575) Active confirmed [...] Insured Coverage Start Date Coverage End Date [facility] [address] [facility] [place], [place] [address] [id number] Charley Aguilar Self - patient is the insured Medical (General) History Medical History History ICD Code Gall bladder problems Headaches/Migraines Hiatal hernia Chicken pox Surgical History Surgery Date(Month/Year) gall bladder 1993 tonsillectomy 1996 hysterectomy 2018 VSG 2019 Antony bunionectomy left foot 09/27/2021 Vasquez Osteotomy L, Mod David Regine
== END 2024-09-29 15:12 | disposition home or self-care (01) ==
LOC: HO.HBS 14:26
PROVIDERS: PCP Nurse Practitioner Family; Visit Provider Physician Assistant Surgical
DX: E66.3 Overweight (principal); Z68.29 Body mass index [BMI] 29.0-29.9, adult; Z98.84 Bariatric surgery status; Z90.3 Acquired absence of stomach [part of]
CPT/HCPCS: 99214; G2211

== ENCOUNTER 2024-11-06 15:33 | Outpatient (AMB) | payer OTHER, SELFPAY ==
--- NOTE | 2024-11-06 15:36 | MHC.PC.OV ---
Intake Visit Reasons: abnormal finding on TELEPHONE OPERATOR imaging Allergies latex (Latex) Allergy (Severe, Verified 11/06/24 15:41) SWELLING,ITCHING codeine (CODEINE) Allergy (Intermediate, Verified 11/06/24 15:41) N/V levofloxacin (From Levaquin) Allergy (Mild, Verified 11/06/24 15:41) N/V Medication List - Last Reconciled 11/06/24 by Maggie Fairchild, CAP AND HAT PRODUCTION SUPERVISOR- celecoxib 200 mg PO BID clonidine HCl 0.2 mg PO DAILY ondansetron 4 mg PO Q6H PRN semaglutide (weight loss) (Wegovy) 0.5 mg (0.5 mL) subcut QWEEK sennosides (senna) 8.6 mg PO BEDTIME thiamine HCl (vitamin B1) 100 mg PO DAILY 90 days valacyclovir 500 mg PO DAILY Tobacco use date assessed: 04/01/24 Dental Screening Dental Screen Date: 02/24/24 HPI HPI Comments History of Present Illness Details 49-year-old female with generalized anxiety disorder, ocular migraine with aura, herpes, seasonal allergies, b1 deficiency Status post left bunionectomy 01/16/2023 done by [facility], status post tonsillectomy, herpes suppressed on acyclovir abdominal hysterectomy*has ovaries, cholecystectomy, sleeve gastrectomy 2019 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 On 11/06/24 @ 15:10 Maggie Fairchild Wrote To Charley Aguilar Yes, ill take care of this. I will order the imaging today as urgent. You should get a call from Radiology at [facility] and i will ask them to compare to the previous films. On 11/05/24 @ 12:22 Charley Aguilar (Regarding Self / Same As Patient) Wrote To Maggie Fairchild Good morning. Please see the response from [facility] regarding the case scan for the lesions. Can this be expedited as I am very nervous. I remember you thinking that I had broke my pelvic bone and I know that there were scans done through [facility] on my pelvis. Is there any way to compare the image that I sent to you versus the ones after the sledding accident to see if this is something new? On 11/04/24 @ 13:08 ANISH Morley Wrote To Charley Aguilar Hi I do not have access, so thank you for getting for me. My recommendation would be to see what TELEPHONE OPERATOR has to say; if they defer back to me I would be happy to take it from there. I wonder if they have a game plan in mind. Let me know. Like i said.. we need to wrap you in bubble wrap!! Maggie On 11/04/24 @ 10:50 Charley Aguilar (Regarding Self / Same As Patient) Wrote To Maggie Fairchild Would you have access to this MRI? On 11/04/24 @ 10:49 Charley Aguilar (Regarding Self / Same As Patient) Wrote To Maggie Fairchild Good morning. I had an MRI at [facility] due to having a 6cm ovarian cyst that needs to be removed and 2 lesions were found on my sacrum. I have not yet received a response from [facility] TELEPHONE OPERATOR regarding this new finding and I?m a little scared. It states that they are reminding an unenhanced CT pelvis for further diagnosis. Would you be able to take this over as what is needed as this isn?t related to TELEPHONE OPERATOR care? Plan: CT of pelvis ordered urgently w/request to compare to MRI at [facility] and previous imaging Time spent 22 minutes [facility] Medical History (Updated 11/06/24 @ 15:40 by ANISH Petersen) Constipation Generalized anxiety disorder Intestinal malabsorption Overweight Surgical History History of sleeve gastrectomy Hx laparoscopic cholecystectomy Hx of breast biopsy S/P excision of ganglion cyst S/P RIA (total abdominal hysterectomy) S/P tonsillectomy Family History Father No problems noted. Mother Stroke Son No problems noted. Daughter No problems noted. 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 Breezy Garces, Yelitza Chaudhry, Jonathan Matthew and colleagues, with an educational ingris from [employer]. Physical exam (Primary Care) Tobacco/Smoking Status: Tobacco use Status Tobacco use date assessed 04/01/24 04/06/24 11:01 Patient Tobacco Use Status Never used Tobacco 04/06/24 11:01 e-Cigarette/Vaping Use Never Used 04/06/24 11:01 Thrive Assessment: Date of Thrive Assessment Date Thrive assessed 04/06/24 04/16/24 13:19 Telehealth Telehealth Telehealth Platform: Other (please specify) Location of provider rendering services: practice address Location of patient: address on file Patient Identification confirmed using: Name, : Yes Telehealth method: voice only Patient verbally consented to treatment: Yes Patient verbally consented to billing insurance company: Yes Patient informed of any privacy concerns related to visit: Yes Minutes spent on Phone/Video with Pt.: 10 Results Reviewed Results Reviewed: Coding Level of Care Code Tele Est Pt Level 3 (44054) Complex EM visit Add On G2211 Diagnoses Encounter to discuss test results Z71.2 Sacral lesion M53.3 Abnormal MRI R93.89 Assessment & Plan Assessment & Plan (1) Encounter to discuss test results: Code(s): Z71.2 - Person consulting for explanation of examination or test findings (2) Sacral lesion: Code(s): M53.3 - Sacrococcygeal disorders, not elsewhere classified Category: Medical (3) Abnormal MRI: Code(s): R93.89 - Abnormal findings on diagnostic imaging of other specified body structures Category: Medical Plan . Orders: Orders CT pelvis wo IV con Today M53.3 - Sacrococcygeal disorders, not elsewhere classified, R93.89 - Abnormal findings on diagnostic imaging of other specified body structures
== END 2024-11-06 15:37 | disposition home or self-care (01) ==
LOC: HO.HMCFM 15:33
PROVIDERS: PCP Nurse Practitioner Family; Visit Provider Nurse Practitioner Family
DX: Z71.2 Person consulting for explanation of examination or test findings (principal); M53.3 Sacrococcygeal disorders, not elsewhere classified; R93.89 Abnormal findings on diagnostic imaging of other specified body structures

== ENCOUNTER 2024-11-18 10:24 | Outpatient (REF) | payer OTHER, SELFPAY ==
--- NOTE | ~2024-11-18 | CT_ITS ---
EXAMINATION: CT PELVIS WITHOUT CONTRAST CLINICAL INFORMATION: M53.3 - Sacrococcygeal disorders, not elsewhere classified. 2 small lesions measuring 1.1 cm and 1,6 cm L sacral ala anterolaterally COMPARISON: CT from June 03, 2024 , no prior MRI available TECHNIQUE: Helical scanning was performed with submillimeter collimation through the pelvis. Sagittal and coronal multiplanar 2-D reconstructions were obtained. This CT examination was performed using dose optimization techniques as appropriate, variously including the following: *Automated exposure control *Adjustment of mA and/or kV according to patient size (this includes techniques or standardized protocols for targeted exams where dose is matched to indication/reason for exam; i.e. extremities or head) *Use of iterative reconstruction technique FINDINGS: PELVIS: Visualized portions of the GI tract is unremarkable. There is a left adnexal cystic structure measuring 4.9 x 6.1 cm that could represent a fluid-filled fallopian tube or a septated ovarian cyst. On the prior CT, it measures 4.8 x 6.7 cm. Right ovarian cysts are present in similar to the prior. Uterus is surgically absent. There is surgical clip in the cul-de-sac. OSSEOUS STRUCTURES: There is a vaguely sclerotic area in the superior left sacrum measuring 1.4 cm diameter. It measures 204 Hounsfield units, which is similar to the prior. There are mild degenerative changes in the SI joints. There are sclerotic anteriorly with small marginal osteophytes. There is vacuum phenomena. There are marginal ossified involving bilateral acetabular roofs. There are small marginal ossified involving femoral heads and fovea. There is mild degenerative irregularity of the pubic symphysis joint. CT/CT pelvis wo IV con IMPRESSION: Stable indeterminate 1.4 centimeters sclerotic lesion in the superior left sacrum. Consider whole body bone scan to determine if it is metabolically active. Previous MRI is not currently available. Request has been sent to receive the MRI. After receiving the MRI, an addendum will be made to this report. Electronically signed by: Gamaliel Barragan MD 11/18/2024 11:52 AM EDT
--- OUTSIDE RECORDS SUMMARY | 2024-11-18 11:50 | XMS_ITS | Patient Health Record ---
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 Zofran Not-Taking Ondansetron HCl [...] Status Risk Notes Problem Acquired hallux valgus (20141238) Hallux valgus (acquired), left foot (M20.12) Active confirmed Problem Contracture of joint of left foot (disorder) ([id number] 7) Contracture, 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) Active confirmed Problem Acquired hallux valgus (24338536) Acquired hallux interphalangeus of left foot (M20.12) [...] Insured Coverage Start Date Coverage End Date [facility] [address] [place] [address] [phone] [id number] Charley Aguilar Self - patient is the insured Medical (General) History Medical History History ICD Code Gall bladder problems Headaches/Migraines Hiatal hernia Chicken pox Surgical History Surgery Date(Month/Year) gall bladder 1993 tonsillectomy 1996 hysterectomy 2018 VSG 2019 Antony bunionectomy left foot 09/27/2021 Vasquez Osteotomy L, Mod David L
== END 2024-11-18 10:25 | disposition home or self-care (01) ==
LOC: HO.CT 10:24
PROVIDERS: PCP Nurse Practitioner Family; Visit Provider Nurse Practitioner Family
DX: M53.3 Sacrococcygeal disorders, not elsewhere classified (principal); R93.89 Abnormal findings on diagnostic imaging of other specified body structures
CPT/HCPCS: 72192

== ENCOUNTER → 2024-11-18 10:25 | Outpatient (BNV) | payer OTHER, SELFPAY | PROVIDERS: PCP Nurse Practitioner Family; Visit Provider Radiology Diagnostic Radiology | DX: N83.202 Unspecified ovarian cyst, left side (principal); M89.8X8 Other specified disorders of bone, other site | CPT/HCPCS: 72192 ==

== ENCOUNTER 2024-11-19 12:52 | Outpatient (AMB) | payer OTHER, SELFPAY ==
--- OUTSIDE RECORDS SUMMARY | 2024-11-19 14:19 | XMS_ITS | Patient Health Record ---
Author Organization [facility] Address [address] [place] [address] Care Team Providers Care Rug Washer Name Role Phone Andreas ALAN, [place] Primary Care Provider Unavail able Eduarda Snell Unavailable [phone] Allergies Allergen (clinical drug ingredient) Drug/Non Drug [...] . 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) Active confirmed Problem Acquired hallux valgus (85921465) Acquired hallux interphalangeus of left foot (M20.12) [...] Insured Coverage Start Date Coverage End Date [facility] [address] [place] [address] [id number] Charley Aguilar Self - patient is the insured Medical (General) History Medical History History ICD Code Gall bladder problems Headaches/Migraines Hiatal hernia Chicken pox Surgical History Surgery Date(Month/Year) gall bladder 1993 tonsillectomy 1996 hysterectomy 2018 VSG 2019 Antony bunionectomy left foot 09/27/2021 Vasquez Osteotomy L, Mod David L
--- NOTE | 2024-11-19 14:53 | MHC.PC.OV ---
Intake Visit Reasons: telehealth review CT results Allergies latex (Latex) Allergy (Severe, Verified 11/19/24 14:54) SWELLING,ITCHING codeine (CODEINE) Allergy (Intermediate, Verified 11/19/24 14:54) N/V levofloxacin (From Levaquin) Allergy (Mild, Verified 11/19/24 14:54) N/V Medication List - Last Reconciled 11/19/24 by ANISH Petersen celecoxib 200 mg PO BID clonidine HCl 0.2 mg PO DAILY ondansetron 4 mg PO Q6H PRN semaglutide (weight loss) (Wegovy) 0.5 mg (0.5 mL) subcut QWEEK sennosides (senna) 8.6 mg PO BEDTIME thiamine HCl (vitamin B1) 100 mg PO DAILY 90 days valacyclovir 500 mg PO DAILY Tobacco use date assessed: 04/01/24 Dental Screening Dental Screen Date: 02/24/24 HPI HPI Comments History of Present Illness Details Telehealth visit today to fu on Results Below reviewed in detail with her Since this time she did have abnormal mammo and fu US done today Told she will need bx and is scheduled at the end of the month she reports sternal mass; not so much breast findings I had reviewed this w/ Rad prior to knowing the sternum mass at that time, i considered a limited bone scan but given the above findings, i do think its prudent to proceed w/ whole body scan to evaluate both areas. She is scheduled for an ovarian cyst removal, too, to be done at [facility]. All questions answered. I will fu with her after the results are back. Total time spent 31 PFSH Medical History (Updated 11/19/24 @ 16:33 by BENTON Petersen-AURY) Constipation Generalized anxiety disorder Intestinal malabsorption Overweight Surgical History History of sleeve gastrectomy Hx laparoscopic cholecystectomy Hx of breast biopsy S/P excision of ganglion cyst S/P RIA (total abdominal hysterectomy) S/P tonsillectomy Family History Father No problems noted. Mother Stroke Son No problems noted. Daughter No problems noted. 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 Breezy Garces, Yelitza Chaudhry, Jonathan Matthew and colleagues, with an educational ingris from [employer]. Physical exam (Primary Care) Tobacco/Smoking Status: Tobacco use Status Tobacco use date assessed 04/01/24 11/19/24 14:54 Patient Tobacco Use Status Never used Tobacco 11/19/24 14:54 e-Cigarette/Vaping Use Never Used 11/19/24 14:54 Thrive Assessment: Date of Thrive Assessment Date Thrive assessed 04/06/24 11/19/24 14:54 Telehealth Telehealth Telehealth Platform: [employer] Location of provider rendering services: practice address Location of patient: address on file Patient Identification confirmed using: Name, : Yes Telehealth method: voice only Patient verbally consented to treatment: Yes Patient verbally consented to billing insurance company: Yes Patient informed of any privacy concerns related to visit: Yes Minutes spent on Phone/Video with Pt.: 15 Results Reviewed Results Reviewed: ADDENDUM ADDENDUM #2 Addendum #2: MRI from 10/29/2024 from [facility] was compared. IMPRESSION: Sclerotic lesion in superior left sacrum correlates with marrow replacing lesion present on MRI. The lesion is unchanged in size when compared with the MRI and May 2024 CT scan. The lesion is indeterminate. Recommend continued follow-up with next CT or MRI in 6-9 months. Area of marrow signal change and sclerosis on CT located in the anterior sacrum adjacent the left SI joint is probably chronic and degenerative in nature. Electronically signed by: Gamaliel Barragan MD 11/18/2024 05:16 PM EDT ADDENDUM #1 Addendum #1 IMPRESSION: 4.9 x 6.1 cm complex cystic left adnexal mass could represent hydrosalpinx versus complex ovarian cyst. It appears similar to CT performed 6 months ago. Recommend follow-up MRI pelvis without and with IV contrast. Electronically signed by: Gamaliel Barragan MD 11/18/2024 01:09 PM EDT RP Addendum Dictated By: Gamaliel Barragan MD Addendum Signed By: <Electronically signed by Gamaliel Barragan MD in OV> 11/18/241715 Addendum Cosigned By: DD/ /14/1044 TD/TT: 11/18/2403/14/1105 ADDENDUM ADDENDUM #1 Addendum #1 IMPRESSION: 4.9 x 6.1 cm complex cystic left adnexal mass could represent hydrosalpinx versus complex ovarian cyst. It appears similar to CT performed 6 months ago. Recommend follow-up MRI pelvis without and with IV contrast. Electronically signed by: Gamaliel Barragan MD 11/18/2024 01:09 PM EDT RP DD/ /14/1044 TD/TT: 11/18/2403/14/1105 EXAMINATION: CT PELVIS WITHOUT CONTRAST CLINICAL INFORMATION: M53.3 - Sacrococcygeal disorders, not elsewhere classified. 2 small lesions measuring 1.1 cm and 1,6 cm L sacral ala anterolaterally COMPARISON: CT from June 03, 2024 , no prior MRI available TECHNIQUE: Helical scanning was performed with submillimeter collimation through the pelvis. Sagittal and coronal multiplanar 2-D reconstructions were obtained. This CT examination was performed using dose optimization techniques as appropriate, variously including the following: *Automated exposure control *Adjustment of mA and/or kV according to patient size (this includes techniques or standardized protocols for targeted exams where dose is matched to indication/reason for exam; i.e. extremities or head) *Use of iterative reconstruction technique FINDINGS: PELVIS: Visualized portions of the GI tract is unremarkable. There is a left adnexal cystic structure measuring 4.9 x 6.1 cm that could represent a fluid-filled fallopian tube or a septated ovarian cyst. On the prior CT, it measures 4.8 x 6.7 cm. Right ovarian cysts are present in similar to the prior. Uterus is surgically absent. There is surgical clip in the cul-de-sac. OSSEOUS STRUCTURES: There is a vaguely sclerotic area in the superior left sacrum measuring 1.4 cm diameter. It measures 204 Hounsfield units, which is similar to the prior. There are mild degenerative changes in the SI joints. There are sclerotic anteriorly with small marginal osteophytes. There is vacuum phenomena. There are marginal ossified involving bilateral acetabular roofs. There are small marginal ossified involving femoral heads and fovea. There is mild degenerative irregularity of the pubic symphysis joint. CT/CT pelvis wo IV con IMPRESSION: Stable indeterminate 1.4 centimeters sclerotic lesion in the superior left sacrum. Consider whole body bone scan to determine if it is metabolically active. Previous MRI is not currently available. Request has been sent to receive the MRI. After receiving the MRI, an addendum will be made to this report. Electronically signed by: Gamaliel Barragan MD 11/18/2024 11:52 AM EDT RP Coding Level of Care Code Tele Est Pt Level 4 (51479) Complex EM visit Add On G2211 Diagnoses Abnormal MRI R93.89 Sacral lesion M53.3 Encounter to discuss test results Z71.2 Sternal mass M89.8X8 Abnormal mammogram R92.8 Assessment & Plan Assessment & Plan (1) Abnormal MRI: Code(s): R93.89 - Abnormal findings on diagnostic imaging of other specified body structures Category: Medical (2) Sacral lesion: Code(s): M53.3 - Sacrococcygeal disorders, not elsewhere classified Category: Medical (3) Encounter to discuss test results: Code(s): Z71.2 - Person consulting for explanation of examination or test findings (4) Sternal mass: Code(s): M89.8X8 - Other specified disorders of bone, other site Category: Medical (5) Abnormal mammogram: Code(s): R92.8 - Other abnormal and inconclusive findings on diagnostic imaging of breast Category: Medical Plan . Orders: Orders NM bone scan whole body Today M53.3 - Sacrococcygeal disorders, not elsewhere classified, M89.8X8 - Other specified disorders of bone, other site, R92.8 - Other abnormal and inconclusive findings on diagnostic imaging of breast
== END 2024-11-19 16:38 | disposition home or self-care (01) ==
LOC: HO.HMCFM 12:52
PROVIDERS: PCP Nurse Practitioner Family; Visit Provider Nurse Practitioner Family
DX: R93.89 Abnormal findings on diagnostic imaging of other specified body structures (principal); M53.3 Sacrococcygeal disorders, not elsewhere classified; Z71.2 Person consulting for explanation of examination or test findings; M89.8X8 Other specified disorders of bone, other site; R92.8 Other abnormal and inconclusive findings on diagnostic imaging of breast

== ENCOUNTER 2024-12-07 11:52 | Outpatient (AMB) | payer OTHER, SELFPAY ==
[2024-12-07 11:48] VITALS: BMI 26.8
--- NOTE | 2024-12-07 11:48 | MHC.OFFVISWM ---
VS Expanded 12/07/24 11:48 Height 5 ft 5 in Weight 161 lb 2 oz BMI 26.8 Intake Visit Reasons: TV PO LSG 09/09/19 Allergies latex (Latex) Allergy (Severe, Verified 11/19/24 14:54) SWELLING,ITCHING codeine (CODEINE) Allergy (Intermediate, Verified 11/19/24 14:54) N/V levofloxacin (From Levaquin) Allergy (Mild, Verified 11/19/24 14:54) N/V Medication List - Last Reconciled 12/07/24 by AMBER Galarza celecoxib 200 mg PO BID clonidine HCl 0.2 mg PO DAILY lorazepam (Ativan) 0.5 mg PO BEDTIME PRN ondansetron 4 mg PO Q6H PRN semaglutide (weight loss) (Wegovy) 0.5 mg (0.5 mL) subcut QWEEK sennosides (senna) 8.6 mg PO BEDTIME thiamine HCl (vitamin B1) 100 mg PO DAILY 90 days valacyclovir 500 mg PO DAILY HPI Comments Details: This is a 49 yo F who is s/p LSG 09/09/2019. Weight loss of 14.8lbs since last OV 2mo ago. No complaints of nausea, emesis, abdominal pain or reflux, or constipation- unless she eats the wrong thing like a [employer] chicken nuggets, sugar. Was started on Wegovy and tolerating well. Having an ovarian cyst removed tomorrow at [facility] so skipped this week's done. Present meal plan includes: fair life 30 g shake Zone perfect bar Meal 7 forks protein and 7 forks vegetables -given at previous OV -pt reports she will often have two shakes per day and one very small meal Exercise routine includes: has a walking pad at home and will do weight training with home videos Have you been diagnosed with reflux (GERD)? Score 0-5: 0=no symptoms, 1=noticeable but not bothersome (slight or occasional), 2=noticeable, bothersome but not daily, 3=bothersome and daily, 4=affects daily activities, 5=incapacitating, unable to do daily activities How bad is the heartburn: 0 Heartburn when lying down: 0 Heartburn when standing up: 0 Heartburn after meals: 0 Does heartburn change your diet: 0 Does heartburn wake you up from sleep: 0 Do you have difficulty swallowin Do you have pain with swallowin If you take medication for reflux, does this affect your daily life: 0 Total score: 0 PFSH Medical History (Updated 11/19/24 @ 16:33 by Maggie Fairchild, [facility]) Overweight Constipation Generalized anxiety disorder Intestinal malabsorption Surgical History S/P excision of ganglion cyst S/P tonsillectomy S/P RIA (total abdominal hysterectomy) Hx of breast biopsy Hx laparoscopic cholecystectomy History of sleeve gastrectomy Family History Father No problems noted. Mother Stroke Son No problems noted. Daughter No problems noted. 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 Cognitive needs: No Hearing needs: No Vision needs: No Telehealth Telehealth Telehealth Platform: Telephone Location of provider rendering services: other Location of patient: address on file Patient Identification confirmed using: Name, : Yes Telehealth method: voice only Patient verbally consented to treatment: Yes Patient verbally consented to billing insurance company: Yes Patient informed of any privacy concerns related to visit: Yes Minutes spent on Phone/Video with Pt.: 16 Assessment & Plan Assessment & Plan (1) Overweight: Code(s): E66.3 - Overweight Category: Medical (2) S/P laparoscopic sleeve gastrectomy: Code(s): Z98.84 - Bariatric surgery status Category: Medical Plan Pt doing well on Wegovy. No side effects. Will refill for next month and she is aware to have held it before her procedure tomorrow. Pt reminded to have labs done. RTC 4mo. Medications: Refilled semaglutide (weight loss) (Wegovy) administer weeks 5 through 8 of therapy 0.5 mg (0.5 mL) subcut QWEEK 2 mL 0RF
== END 2024-12-07 12:04 | disposition home or self-care (01) ==
LOC: HO.HBS 11:52
PROVIDERS: PCP Nurse Practitioner Family; Visit Provider Physician Assistant Surgical
DX: E66.3 Overweight (principal); Z98.84 Bariatric surgery status
CPT/HCPCS: 99214; G2211

== ENCOUNTER 2024-12-17 17:19 | Emergency (ER) | payer OTHER, SELFPAY ==
--- NOTE | ~2024-12-17 | CT_ITS ---
CLINICAL HISTORY: blurry vision CT head without contrast Comparison: MR - MR HEAD/BRAIN WO CON - 04/07/24 13:16 EST MR/REG/MS - MRI BRAIN WITHOUT CONT [id number] - 08/16/18 14:00 EDT Findings: No intra-axial mass, midline shift, hydrocephalus, or acute hemorrhage. No significant atrophy-like change or white matter disease. The visualized paranasal sinuses and mastoid air cells are normal. The orbits are within normal limits. No skull fracture. IMPRESSION: 1. No acute intracranial findings. This document has been electronically signed by: Gordon Prather MD on 12/17/2024 18:53:30
[2024-12-17 17:23] VITALS: BP 139/85; PULSE 72; RESP 20; TEMP 37; O2SAT 98; BMI 24.5
--- NOTE | 2024-12-17 17:53 | ED_ITS ---
HPI - Neuro Symptoms/Deficit General Chief Complaint: Neuro Symptoms/Deficit Stated Complaint: possible stroke pcp called Time Seen by Provider: 12/17/24 18:23 Source: patient Mode of arrival: ambulatory Limitations: no limitations History of Present Illness ED Provider: Dr. Mcguire HPI Narrative: 49-year-old female history of ocular migraine, recent left ovarian cyst removal presented hospital today for evaluation of intermittent headaches and vision changes. Patient stated that it appears to be a ripple effect in both of her eyes. She is having some headaches in the anterior part of her head. Patient is also stated that she has history of being on Wegovy medication for weight loss. Also gastric bypass in the past. She noticed at since her dose of Wegovy on Saturday she has been having nausea. They did increase her Wegovy dose recently. Patient is contacted with his weight loss doctor who recommended her to come to the ER for further evaluation. Related Data Home Medications ?Medication ?Instructions ?Recorded ?Confirmed sennosides 8.6 mg tablet (senna) 8.6 mg PO BEDTIME 12/07/24 Previous Rx's ?Medication ?Instructions ?Recorded thiamine HCl (vitamin B1) 100 mg 100 mg PO DAILY 90 da ys #90 tabs 11/26/23 tablet celecoxib 200 mg capsule 200 mg PO BID #180 caps 03/21 04/14 ondansetron 4 mg disintegrating 4 mg PO Q6H PRN nausea and 06/03/24 tablet vomiting #10 tabs clonidine HCl 0.2 mg tablet 0.2 mg PO DAILY #90 tabs 0 06/14/24 valacyclovir 500 mg tablet 500 mg PO DAILY #90 tabs lorazepam 0.5 mg tablet (Ativan) 0.5 mg PO BEDTIME PRN anxiety #30 11/25/24 tabs semaglutide (weight loss) 0.5 0.5 mg (0.5 mL) subcut Q WEEK #2 mL 12/11/24 mg/0.5 mL subcutaneous pen injector (Wegovy) metoclopramide HCl 5 mg tablet 5 mg PO Q8H PRN nausea and 12/17/24 (Reglan) vomiting 5 days #14 tabs Allergies Allergy/AdvReac Type Severity Reaction Status Date / Time latex (Latex) Allergy Severe SWELLING,IT Verified 12/17/24 17:33 BRODY codeine (CODEINE) Allergy Intermediate N/V Verified 12/17/24 17:33 levofloxacin (From Levaquin) Allergy Mild N/V Verified 12/17/24 17:33 Review of Systems 2 Review of Systems: Pertinent review of systems as mentioned in HPI. All other system otherwise negative. [facility] Past Medical History [facility] Narrative: Medical history as mentioned in HPI Medical History (Updated 12/18/24 @ 00:00 by Trini Daanoop) Overweight Constipation Generalized anxiety disorder Intestinal malabsorption Surgical History S/P excision of ganglion cyst S/P tonsillectomy S/P RIA (total abdominal hysterectomy) Hx of breast biopsy Hx laparoscopic cholecystectomy History of sleeve gastrectomy Family History Family History Father No problems noted. Mother Stroke Son No problems noted. Daughter No problems noted. 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 Cognitive needs: No Hearing needs: No Vision needs: No Physical Exam 2 Exam: Exam: General: Pleasant, no distress, interacting appropriately Head: Normacephalic, atraumatic ENT: oral mucosa moist, neck supple, no tracheal deviation Cardiovascular: regular rate, regular rhythm, no murmurs, rubbing, gallops Respiratory: CTAB, no wheeze, rales, rhonchi Neurological: Awake and alert, no facial droop noted, good strength in upper and lower extremity no sign of ataxia, visual saavedra intact, EOMI Skin: Warm and dry Psychiatric: Appropriate mood and thoughts Vital Signs: Vital Signs: Last Vital Signs Temp 0 F L 12/17/24 20:36 Pulse 64 12/17/24 20:36 Resp 16 12/17/24 20:36 BP 127/64 12/17/24 20:36 Pulse Ox 100 12/17/24 20:36 O2 Del Method Room Air 12/17/24 20:36 BMI result Body Mass Index 24.5 Course Course Course Narrative: RME: 49 yold female presents to the ED for headache with intermittent bilateral blurry vision since saturday. NIH Score 0. labs and Head CT scan Medications Administered Discontinued Medications Generic Name Dose Route Start Last Admin Trade Name Emma PRN Reason Stop Dose Admin Sodium Chloride 1,000 mls @ 999 mls/hr 12/17/24 18:45 12/17/24 19:56 Ns IV 12/17/24 19:45 Infused .Q1H1M DAVID Infusion Magnesium Sulfate 2 gm in 50 mls @ 25 mls/hr 12/17/24 18:41 12/17/24 18:55 Magnesium Sulfate/H2o IV 12/17/24 20:40 25 mls/hr ONCE ONE Administration Metoclopramide HCl 5 mg 12/17/24 18:41 12/17/24 18:54 Metoclopramide Hcl 10 Mg/2 Ml Vial IV 12/17/24 18:42 5 mg ONCE ONE Administration Medical Decision Making Medical Decision Making [facility] Narrative: 49-year-old female presented hospital today for headache with intermittent vision changes. She is not having any active headache at this time upon my evaluation. Patient appears to be neurologically intact on physical exam. I suspect patient has nausea is from her Wegovy dose. We will plan to give patient some IV Reglan IV fluid. We will plan to give patient some IV magnesium as well for her headache. Lab work and CT imaging was ordered from provider prior to my evaluation. I reviewed the lab work. No sign of leukocytosis no sign of significant anemia. No sign of significant electrolyte abnormality. The patient's did obtain a troponin however she does not have any chest pain. Troponins negative. Patient's CT head did not show any signs of acute intracranial. On reassessment patient stated her symptom has improved. She is able to drink and eat crackers. The patient is able to ambulate without any dizziness or visual changes or headaches. Patient will be discharged at this time. We will plan to prescribe patient some p.o. Reglan to take. Differential Diagnosis Differential Diagnoses: The differential diagnosis associated with the presentation includes Ocular migraine, nausea vomiting, side effect, adverse effect Lab Data [facility] Lab Attestation statement: I reviewed the patient's lab results. 12/17/24 18:08 12/17/24 18:08 Labs: Lab Results 12/17/24 Range/Units 18:08 WBC 7.2 (4.8-10.8) X10*3/uL RBC 4.26 (4.20-5.50) X10*6/uL Hgb 12.7 (12.0-16.0) g/dl Hct 37.2 (37.0-47.0) % MCV 87.3 (80.0-98.0) fL MCH 29.8 (27.0-33.0) pg MCHC 34.1 (31.0-35.0) g/dl RDW 12.7 (11.0-16.0) % Plt Count 324 (160-400) X10*3/uL MPV 9.6 (9.4-12.3) fL Immature Gran % (Auto) 0.3 (0.0-0.4) % Neut % (Auto) 47.7 (45-73) % Lymph % (Auto) 40.3 H (20-40) % [place] % (Auto) 8.1 (2-11) % Eos % (Auto) 3.2 (0-4) % Baso % (Auto) 0.4 (0-2) % Lymph # (Auto) 2.9 (1.2-4.9) X10*3/uL [place] # (Auto) 0.6 (0.1-1.2) X10*3/uL Eos # (Auto) 0.2 (0.0-0.4) X10*3/uL Baso # (Auto) 0.0 (0.0-0.2) X10*3/uL Abs Immat Gran (auto) 0.02 (0.00-0.03) X10*3/uL Absolute Neuts (auto) 3.5 (2.0-8.3) x10*3/uL Absolute Nucleated RBC 0.000 (0.0-0.012) X10*3/uL Nucleated RBC % (auto) 0.0 (0.0-0.2) /100WBC PT 9.9 L (10.9-12.4) SEC INR 0.9 (0.9-1.1) APTT 29.2 (26.7-34.1) SEC Sodium 140 (135-145) mmol/L Potassium 4.0 (3.3-5.1) mmol/L Chloride 105 (96-108) mmol/L Carbon Dioxide 28 (22-29) mmol/L Anion Gap 11 L (12-20) BUN 6 L (9-16) mg/dL Creatinine 0.77 (0.5-1.4) mg/dL Estim Creat Clear Calc 91.0 Estimated GFR > 60 Random Glucose 87 (60-115) mg/dL Calcium 8.8 (8.4-10.2) mg/dL Total Bilirubin 0.4 (0.0-1.0) mg/dL AST 19 (5-31) U/L ALT 13 (0-31) U/L Alkaline Phosphatase 53 (39-117) U/L Troponin I High Sens < 2.7 (<3.5-17.0) ng/L Total Protein 6.5 (6.5-8.0) g/dL Albumin 4.0 (3.5-5.0) g/dL Independent Interpretation I performed an independent interpretation of an: CT Scan Radiology Impression Discussion of test interpretation with radiology: I have reviewed the radiologist's reading. Discharge Plan Discharge Clinical Impression: Nausea, Headache Patient Disposition: Home, Self-Care Prescriptions: New metoclopramide HCl [Reglan] 5 mg tablet 5 mg PO Q8H PRN (Reason: nausea and vomiting) 5 Days Qty: 14 0RF No Action clonidine HCl 0.2 mg tablet 0.2 mg PO DAILY Qty: 90 2RF valacyclovir 500 mg tablet 500 mg PO DAILY Qty: 90 2RF lorazepam [Ativan] 0.5 mg tablet 0.5 mg PO BEDTIME PRN (Reason: anxiety) Qty: 30 1RF Wegovy 0.5 mg/0.5 mL pen injector 0.5 mg subcut QWEEK Qty: 2 0RF Rx Instructions: administer weeks 5 through 8 of therapy ondansetron 4 mg tablet,disintegrating 4 mg PO Q6H PRN (Reason: nausea and vomiting) Qty: 10 0RF celecoxib 200 mg capsule 200 mg PO BID Qty: 180 0RF thiamine HCl (vitamin B1) 100 mg tablet 100 mg PO DAILY 90 Days Qty: 90 2RF sennosides [senna] 8.6 mg tablet 8.6 mg PO BEDTIME Interventions: ED Discharge Assessment Last Done: 12/17/24 20:36 Discharge Date/Time: 12/17/24 20:38 Print Language: Yi
--- NOTE | 2024-12-17 17:55 | ECG_ITS ---
Test Reason : HEADACHE/NUASEA/BLURRY VISION Blood Pressure : */* mmHG Vent. Rate : 63 BPM Atrial Rate : 63 BPM P-R Int : 158 ms QRS Dur : 82 ms QT Int : 410 ms P-R-T Axes : 52 32 54 degrees QTcB Int : 419 ms Normal sinus rhythm Normal ECG When compared with ECG of 17-Jul-2019 09:20, No significant change was found Referred By: Julian Iniguez Electronically Signed By: KAITLYN REYNA
[2024-12-17 18:13] LABS: MANUAL DIFF FLAG NO
[2024-12-17 18:14] LABS: Hematocrit 37.2 % (37.0-47.0); Hemoglobin 12.7 g/dl (12.0-16.0); Imm Gran Abs Auto 0.02 X10*3/uL (0.00-0.03); Imm Gran Pct Auto 0.3 % (0.0-0.4); Lymphocytes Absolute Auto 2.9 X10*3/uL (1.2-4.9); Mean Corpuscular HGB Conc 34.1 g/dl (31.0-35.0); Mean Corpuscular Hemoglobin 29.8 pg (27.0-33.0); Mean Corpuscular Volume 87.3 fL (80.0-98.0); NRBC Abs Auto 0.000 X10*3/uL (0.0-0.012); NRBC Pct Auto 0.0 /100WBC (0.0-0.2); Platelet Count 324 X10*3/uL (160-400); Red Blood Count 4.26 X10*6/uL (4.20-5.50); White Blood Count 7.2 X10*3/uL (4.8-10.8)
[2024-12-17 18:19] LABS: INTERNATIONAL NORM RATIO 0.9 (0.9-1.1); Prothrombin Time 9.9 SEC (10.9-12.4)
[2024-12-17 18:22] LABS: Partial Thromboplastin Time 29.2 SEC (26.7-34.1)
[2024-12-17 18:23] VITALS: BP 127/74; PULSE 64; RESP 16; TEMP 36.5; O2SAT 100
[2024-12-17 18:27] LABS: Alanine Aminotransferase 13 U/L (0-31); Albumin Level 4.0 g/dL (3.5-5.0); Alkaline Phosphatase 53 U/L (39-117); Anion Gap 11 (12-20); Aspartate Amino Transferase 19 U/L (5-31); Blood Urea Nitrogen 6 mg/dL (9-16); Calcium 8.8 mg/dL (8.4-10.2); Carbon Dioxide 28 mmol/L (22-29); Chloride 105 mmol/L (96-108); Creatinine Clr Calc Pharmacy 91.0; Estimated Glomerular Filt Rate > 60; Potassium 4.0 mmol/L (3.3-5.1); Sodium 140 mmol/L (135-145); Total Protein 6.5 g/dL (6.5-8.0)
[2024-12-17 18:35] LABS: Troponin-I High Sensitivity < 2.7 ng/L (<3.5-17.0)
[2024-12-17] MEDS: Magnesium Sulfate/H2O 2 GM/50 ML PIGGYBACK IV (18:55)
--- OUTSIDE RECORDS SUMMARY | 2024-12-17 18:58 | XMS_ITS | Patient Health Record ---
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 Zofran Not-Taking Ondansetron HCl [...] Status Risk Notes Problem Acquired hallux valgus (79326746) Hallux valgus (acquired), left foot (M20.12) Active confirmed Problem Contracture of joint of left foot (disorder) (08231001481577 7) Contracture, 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) Active confirmed Problem Acquired hallux valgus (34881393) Acquired hallux interphalangeus of left foot (M20.12) [...] Coverage Start Date Coverage End Date [facility] [address] [place] [address] [id number] Charley Aguilar Self - patient is the insured Medical (General) History Medical History History ICD Code Gall bladder problems Headaches/Migraines Hiatal hernia Chicken pox Surgical History Surgery Date(Month/Year) gall bladder 1993 tonsillectomy 1996 hysterectomy 2018 VSG 2019 Antony bunionectomy left foot 09/27/2021 Vasquez Osteotomy L, Mod David L
[2024-12-17 20:36] VITALS: BP 127/64; PULSE 64; RESP 16; TEMP -17.7; TEMP 0; O2SAT 100
== END 2024-12-17 20:38 | disposition home or self-care (01) ==
PROVIDERS: Physician Assistant; Emergency Provider Student in an Organized Health Care Education/Training Program; PCP Nurse Practitioner Family
DX: R51.9 Headache, unspecified (principal); R11.0 Nausea; Z98.84 Bariatric surgery status; Z90.710 Acquired absence of both cervix and uterus; Z79.899 Other long term (current) drug therapy; H53.9 Unspecified visual disturbance
CPT/HCPCS: 36415; 70450; 80053; 84484; 85025; 85610; 85730; 93005; 96361; 96374; 96375; 99284; J2765; J3475

== ENCOUNTER → 2024-12-17 17:53 | Outpatient (BNV) | payer OTHER, SELFPAY | PROVIDERS: Emergency Provider Student in an Organized Health Care Education/Training Program; PCP Nurse Practitioner Family; Visit Provider Radiology Diagnostic Radiology | DX: H53.8 Other visual disturbances (principal) | CPT/HCPCS: 70450 ==

== ENCOUNTER → 2024-12-17 17:55 | Outpatient (BNV) | payer OTHER, SELFPAY | PROVIDERS: Emergency Provider Student in an Organized Health Care Education/Training Program; PCP Nurse Practitioner Family; Visit Provider Internal Medicine | DX: R51.9 Headache, unspecified (principal); R11.0 Nausea; H53.8 Other visual disturbances | CPT/HCPCS: 93010 ==

== ENCOUNTER → 2025-01-04 09:39 | Outpatient (REF) | payer OTHER, SELFPAY ==
--- NOTE | ~2025-01-04 | NM_ITS ---
EXAMINATION: NM BONE SCAN OF THE WHOLE BODY CLINICAL INFORMATION: Sternal mass, sacral lesion. Abnormal mammogram. COMPARISON: CT pelvis 01/04/2025. CT right shoulder 05/07/2024 TECHNIQUE: Multiple gamma scintillation camera images of the whole body were performed 3 hours following the intravenous administration of 26 mCi Tc-99m MDP. FINDINGS: In the head, no abnormal isotope uptake In the thoracic cage and upper extremities, there is minimal asymmetric activity seen in the right glenoid consistent with healing linear fracture as seen on CT shoulder exam 05/07/2024. No additional areas of isotope activity seen in the ribs, sternum or the clavicles. Massively mild activity seen along the glenohumeral shoulder joint and AC joints likely DJD. In the spine, there is mild scoliosis. No abnormal isotope activity seen to suspect any metastatic or primary lesion. In the pelvis, there is mild a trace activity seen in the left lateral sacrum corresponding to CT abnormality.. In the lower extremities, mild increased activity seen in the medial compartment right knee likely DJD. No other definite bony abnormalities are noted. The urinary bladder and faint visualization of both kidneys are noted. NM/NM bone scan whole body IMPRESSION: Mild activity right glenoid likely old healed fracture. No abnormal activity seen in the sternum of the clavicles. 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 Mild activity seen in the left sacrum corresponding to sclerotic lesion seen on CT 11/18/2024.. This could represent an degenerative arthritic changes in the left sacrum. Metastatic disease is hard to exclude but considered less likely Electronically signed by: José Manuel Henry MD 01/05/2025 08:40 AM [facility]
== END ==
LOC: HO.NUCMED 09:39
PROVIDERS: PCP Nurse Practitioner Family; Visit Provider Nurse Practitioner Family
DX: M53.3 Sacrococcygeal disorders, not elsewhere classified (principal); M89.8X8 Other specified disorders of bone, other site; R92.8 Other abnormal and inconclusive findings on diagnostic imaging of breast
CPT/HCPCS: 78306; A9503

== ENCOUNTER → 2025-01-04 09:41 | Outpatient (BNV) | payer OTHER, SELFPAY | PROVIDERS: PCP Nurse Practitioner Family; Visit Provider Radiology Diagnostic Radiology | DX: M17.11 Unilateral primary osteoarthritis, right knee (principal); Z87.828 Personal history of other (healed) physical injury and trauma | CPT/HCPCS: 78306 ==